=== PATIENT | male | born 1955 | race African-American/Black ===

== ENCOUNTER 2019-11-16 11:19 | Outpatient (CLI) | payer MEDICARE, SELFPAY ==
[2019-11-16 12:52] LABS: Hematocrit 45.5 % (42.0-52.0); Hemoglobin 14.7 g/dL (14.0-18.0); Mean Corpuscular HGB Conc 32.3 g/dl (32-36); Mean Corpuscular Volume 83.6 fl (80-100); Mean Platelet Volume 10.3 fl (7.4-10.4); Platelet Count Result 195 k/mm3 (150-375); Red Blood Count 5.44 M/mm3 (4.6-6.20); Red Cell Distribution Width 13.5 % (11.5-14.5); White Blood Count 4.4 K/mm3 (4.5-10.0)
[2019-11-16 13:01] LABS: Hemoglobin A1C 5.4 % (<5.7)
[2019-11-16 13:09] LABS: Alanine Aminotransferase 15 U/L (4-50); Albumin Level 4.1 g/dL (3.5-5.1); Alkaline Phosphatase 85 U/L (38-126); Aspartate Amino Transferase 19 U/L (17-59); Bilirubin,Total 0.3 mg/dL (0.2-1.3); Blood Urea Nitrogen 8 mg/dL (9-20); Calcium 9.2 mg/dL (8.4-10.2); Carbon Dioxide 29 mmol/L (22-30); Chloride 105 mmol/L (98-107); Cholesterol 172 mg/dL (0-200); Estimated Glomerular Filt Rate > 60; Glucose 105 mg/dL (75-110); HDL Direct 44 mg/dL; Potassium 3.8 mmol/L (3.4-5.0); Sodium 140 mmol/L (137-145); Triglycerides 76 mg/dL (<150)
[2019-11-16 13:22] LABS: LDL Cholesterol Direct 107 mg/dL
== END 2019-11-16 11:20 | disposition home or self-care (01) ==
PROVIDERS: PCP Emergency Medicine
DX: R73.09 Other abnormal glucose (principal); M54.9 Dorsalgia, unspecified; I10 Essential (primary) hypertension; E78.5 Hyperlipidemia, unspecified; F17.200 Nicotine dependence, unspecified, uncomplicated; R00.2 Palpitations; I70.219 Atherosclerosis of native arteries of extremities with intermittent claudication, unspecified extremity; R06.02 Shortness of breath; M79.606 Pain in leg, unspecified; I25.10 Atherosclerotic heart disease of native coronary artery without angina pectoris
CPT/HCPCS: 36415; 80053; 80061; 83036; 85027

== ENCOUNTER 2019-11-28 08:43 | Emergency (ER) | payer MEDICARE, MEDICAID, SELFPAY ==
--- NOTE | ~2019-11-28 | XR_ITS ---
EXAMINATION: XR chest 1V portable DATE: 11/28/2019 09:56 INDICATION: Cough and flu symptoms. TECHNIQUE: frontal view of the chest was obtained. COMPARISON: Chest radiograph dated 05/28/2016 FINDINGS: The lungs remain clear with no focal airspace opacities, pulmonary edema, pleural effusion or pneumot horax. The cardiomediastinal silhouette is normal. Partially visualized plate and screw fixation for lower cervical anterior spinal fusion. IMPRESSION: 1. No acute cardiopulmonary disease. Reviewed, dictated and finalized at location A.
[2019-11-28 08:53] VITALS: BP 207/103; PULSE 96; RESP 18; TEMP 36.9; O2SAT 100
--- NOTE | 2019-11-28 10:09 | ED.GENADULT ---
HPI - General Adult General Chief complaint: Upper Respiratory Infection Stated complaint: flu like sx Time Seen by Provider: 11/28/19 08:48 Source: patient Mode of arrival: ambulatory Limitations: no limitations History of Present Illness HPI narrative: Patient is a 64-year-old male who presents with 2 days duration of some mild stomach discomfort in the morning that improved with prune juice and a bowel movement patient notes he has no current complaints right now notes that he did just recently get over an upper respiratory infection. Related Data Allergies Allergy/AdvReac Type Severity Reaction Status Date / Time Penicillins Allergy Unknown Anaphylaxis Verified 11/28/19 08:57 Review of Systems Review of Systems: All systems reviewed & are unremarkable except as noted in HPI and below PMFSH Past Medical History Medical History (Updated 11/28/19 @ 10:23 by Harsha Deng PA-C) Hypertension Surgical History Surgical History H/O cardiac catheterization Social History Social History (Updated 11/28/19 @ 10:15 by Harsha Deng PA-C) Smoking status: Never smoker Exam Narrative: Exam Narrative: GENERAL: Well-appearing, well-nourished, and in no acute distress. HEAD: Normocephalic, atraumatic. EYES: PERRLA and EOMI. ENT: Nares clear, no rhinorrhea or epistaxis. Mucous membranes moist. CHEST: Clear to auscultation. No respiratory distress. No wheezes rales or rhonchi HEART: Regular rate and rhythm. No murmur heard. Normal peripheral pulses. ABDOMEN: Soft, nontender, nondistended EXTREMITIES: Normal range of motion. No edema. SKIN: Warm, dry, no rash. NEURO: No focal deficits. Alert and oriented x3. PSYCH: Normal mood and affect. Course Course Emergency Course: Patient in the room in no distress has follow-up with primary care tomorrow is felt appropriate for outpatient reevaluation Vital Signs Vital signs: Vital Signs Temperature 98.4 F 11/28/19 08:53 Pulse Rate 96 11/28/19 08:53 Respiratory Rate 18 11/28/19 08:53 Blood Pressure 207/103 H 11/28/19 08:53 Pulse Oximetry 100 11/28/19 08:53 Temperature 98.4 F 11/28/19 08:53 Pulse Rate 96 11/28/19 08:53 Respiratory Rate 18 11/28/19 08:53 Blood Pressure 207/103 H 11/28/19 08:53 Pulse Oximetry 100 11/28/19 08:53 Medical Decision Making MDM Narrative Medical decision making narrative: Patient in the room in no distress aware of case findings treatment plan and diagnosis agreeing to follow-up as directed Vital Signs Vital Signs: Vital Signs Temperature 98.4 F 11/28/19 08:53 Pulse Rate 96 11/28/19 08:53 Respiratory Rate 18 11/28/19 08:53 Blood Pressure 207/103 H 11/28/19 08:53 Pulse Oximetry 100 11/28/19 08:53 Temperature 98.4 F 11/28/19 08:53 Pulse Rate 96 11/28/19 08:53 Respiratory Rate 18 11/28/19 08:53 Blood Pressure 207/103 H 11/28/19 08:53 Pulse Oximetry 100 11/28/19 08:53 Lab Data Labs: Influenza A Screen Negative Reference Range: Negative Influenza B Screen Negative Reference Range: Negative ABG Data Interpretation: ITS Impressions Chest X-Ray 11/28/19 09:59 IMPRESSION: 1. No acute cardiopulmonary disease. Discharge Plan Discharge Clinical Impression: Upper respiratory infection Patient Disposition: Home, Self-Care Condition: Stable Instructions: Antibiotic Form, Acute Bronchitis (ED) Additional Instructions: Follow up with your primary care doctor in 5-7 days for re-evaluation. Go to ER for worsening pain, vision changes, nausea/vomiting, fever/chills, weakness, chest pain, shortness of breath, numbness/tingling, slurred speech, difficulty walking, change in mental status etc. or any other concerns. Take any prescribed medications as directed. Follow-up/Referrals: Alvaro Freed MD [Primary Care Provider] -
[2019-11-28 10:38] VITALS: BP 193/97; PULSE 97; RESP 18; O2SAT 100
== END 2019-11-28 10:42 | disposition home or self-care (01) ==
PROVIDERS: Emergency Provider Emergency Medicine; PCP Emergency Medicine
DX: J06.9 Acute upper respiratory infection, unspecified (principal); I10 Essential (primary) hypertension
CPT/HCPCS: 71045; 87804; 99283

== ENCOUNTER 2019-11-30 10:26 | Outpatient (CLI) | payer MEDICARE, MEDICAID, SELFPAY ==
--- NOTE | ~2019-11-30 | PE_ITS ---
EXAMINATION: PET skull to mid thigh DATE: 11/30/2019 12:38 INDICATION: Solitary pulmonary nodule. TECHNIQUE: Blood glucose level was 88 mg/dL. 11.299 mCi of 18-fluorodeoxyglucose (18-FDG) was adminis tered i.v. Low dose computed tomography (CT) images were acquired from the base of the brain to the p roximal thighs for attenuation correction and anatomic localization. Automated exposure control was e mployed. Dose-length product (DLP) was 864 mGy-cm. Positron emission tomography (PET) images were acq uired in the same distribution. COMPARISON: CT abdomen and pelvis 03/03/2017, chest CT 06/15/2016 FINDINGS: Head/neck: There is increased activity in the nose, nasopharynx, oral cavity, submandibular glands, s ublingual glands, and glottis without CT correlate, likely physiologic. There are no pathologically e nlarged lymph nodes. There are changes of anterior fusion procedure in cervical spine. Chest: There is mild emphysema. There is an 11 mm nodule in perihilar left upper lobe with maximum CEVALLOS V of 1.4, new from 06/15/16. No pleural effusion. The heart size is normal. There are coronary artery calcifications. No pericardial effusion. Abdomen/pelvis/proximal thighs: There is a 9 mm cyst in the liver. The gallbladder, spleen, pancreas, adrenal glands, and kidneys are normal. There are no dilated loops of bowel. The prostate is mildly enlarged. There is a right inguinal hernia containing fat. There is a stent in the left common and ex ternal iliac arteries. There is a stent in the right common and external iliac arteries. There is a s tent in left superficial femoral artery. There are no pathologically enlarged lymph nodes. There is n o free intraperitoneal fluid. There is a 3.0 cm fusiform infrarenal aortic aneurysm. There is severe lower lumbar spondylosis. IMPRESSION: 1. 11 mm nodule in perihilar left upper lobe without increased activity, which may be benign, but lo w-grade neoplasm cannot be excluded. Noncontrast chest CT is recommended in 3-6 months. Reviewed, dictated and finalized at location A. IMPRESSION: 1. 11 mm nodule in perihilar left upper lobe without increased activity, which may be benign, but low-grade neoplasm cannot be excluded. Noncontrast chest CT is recommended in 3-6 months.
[2019-11-30 10:49] LABS: Glucose Point of Care 88 (65-105)
== END 2019-11-30 10:27 | disposition home or self-care (01) ==
LOC: ANHIMG 10:29
PROVIDERS: PCP Emergency Medicine; Visit Provider Emergency Medicine
DX: R91.1 Solitary pulmonary nodule (principal)
CPT/HCPCS: 78815; A9552

== ENCOUNTER 2019-12-05 02:25 | Emergency (ER) | payer MEDICARE, SELFPAY ==
[2019-12-05 02:34] VITALS: BP 207/105; PULSE 118; RESP 16; TEMP 36.8; O2SAT 99
[2019-12-05 02:39] VITALS: BP 158/100; PULSE 108; RESP 18; O2SAT 97
--- NOTE | 2019-12-05 02:46 | ECG_ITS ---
Measurements Intervals [place] Rate: 95 P: 50 NE: 228 QRS: 9 QRSD: 92 T: 229 QT: 337 QTc: 424 Interpretive Statements SINUS RHYTHM WITH FIRST DEGREE AV BLOCK ST-T WAVE ABNORMALITY IN INF/LAT LEADS- CONSIDER ISCHEMIA ABNORMAL ECG Electronically Signed On 12-05-2019 6:59:05 CDT by Tay Paz D.O.
--- NOTE | 2019-12-05 02:53 | ED.ABDPAIN ---
HPI - Abdominal Pain General Chief Complaint: Abdominal Pain Stated Complaint: bloated in stomach Time Seen by Provider: 12/05/19 02:37 History of Present Illness HPI narrative: Patient is a 64-year-old male who presents the ER with intermittent abdominal bloating. Ongoing for the last 3 days. Was seen at [facility] and diagnosed with what sounds like acid reflux as he is prescribed sucralfate. Patient was told to follow-up with his GI doctor Dr. Yeung whom he sees for acid reflux as well as a colonoscopy in the past. Denies any fever/chills/shortness of breath. No real nausea or vomiting. Denies any diarrhea. Cannot really describe aggravating or alleviating factors. Related Data Allergies Allergy/AdvReac Type Severity Reaction Status Date / Time Penicillins Allergy Unknown Verified 12/05/19 02:52 Review of Systems Review of Systems: All systems reviewed & are unremarkable except as noted in HPI and below Constitutional: Constitutional: Denies chills, Denies fever(s) and Denies weakness ENT: Denies nasal congestion and Denies sore throat Cardiovascular: Cardiovascular: Denies chest pain and Denies radiating jaw, neck or arm pain Respiratory: Respiratory: Denies cough, Denies dyspnea and Denies wheezing Gastrointestinal: Gastrointestinal: Denies abdominal pain, Reports bloating, Denies constipation, Reports heartburn, Denies nausea and Denies vomiting PMFSH Past Medical History Medical History (Updated 12/05/19 @ 05:38 by Avtar Becerra MD) Contraindication to percutaneous coronary intervention (PCI) Coronary artery disease GERD (gastroesophageal reflux disease) Surgical History Surgical History (Updated 12/05/19 @ 05:36 by Avtar Becerra MD) H/O neck surgery History of esophagogastroduodenoscopy (EGD) Social History Social History (Updated 12/05/19 @ 05:37 by Avtar Becerra MD) Smoking status: Current every day smoker Exam Narrative: Exam Narrative: GENERAL: Well-appearing, well-nourished, and in no acute distress. HEAD: Normocephalic, atraumatic. ENT: Mucous membranes moist. NECK: Supple. CHEST: Clear to auscultation. No respiratory distress. HEART: Tachycardic and regular. Normal peripheral pulses. ABDOMEN: Soft, nontender, nondistended, normal active bowel sounds. EXTREMITIES: Normal range of motion. No edema. SKIN: Warm, dry, no rash. NEURO: Alert and oriented x3. Course Course Emergency Course: Patient informed of results. Symptoms improved with GI cocktail. Discharge home. Patient also reports he has been taking MiraLAX for some constipation this may be contributing to his bloating in the abdomen. Vital Signs Vital signs: Vital Signs Temperature 98.2 F 12/05/19 02:34 Pulse Rate 118 H 12/05/19 02:34 Respiratory Rate 16 12/05/19 02:34 Blood Pressure 207/105 H 12/05/19 02:34 Pulse Oximetry 99 12/05/19 02:34 Temperature 98.2 F 12/05/19 02:34 Pulse Rate 77 12/05/19 05:19 Respiratory Rate 18 12/05/19 05:19 Blood Pressure 155/86 H 12/05/19 05:19 Pulse Oximetry 95 12/05/19 05:19 MDM - Abdominal Pain Lab Data Result diagrams: 12/05/19 02:50 12/05/19 02:50 Labs: Lab Results 12/05/19 12/05/19 Range/Units 02:50 02:50 WBC 5.2 (4.5-10.0) K/mm3 RBC 5.40 (4.6-6.20) M/mm3 Hgb 14.7 (14.0-18.0) g/dL Hct 44.7 (42.0-52.0) % MCV 82.8 (80-100) fl MCH 27.2 (26-34) pg MCHC 32.9 (32-36) g/dl RDW 13.8 (11.5-14.5) % Plt Count 170 (150-375) k/mm3 MPV 9.8 (7.4-10.4) fl Immature Gran % (Auto) 0.2 (0-0.5) % Neut % (Auto) 57.0 (45.5-73.1) % Lymph % (Auto) 27.7 (18.3-44.2) % Motley % (Auto) 13.9 H (2.6-8.5) % Eos % (Auto) 0.8 (0-4.4) % Baso % (Auto) 0.4 (0.2-1.2) % Lymph # (Auto) 1.45 (0.9-3.2) K/mm3 Motley # (Auto) 0.7 H (0.1-0.6) K/mm3 Eos # (Auto) 0.0 (0-0.3) K/mm3 Baso # (Auto) 0.0 (0.0-0.1) K/mm3 Abs Immat Gran (auto) 0.01
[2019-12-05 02:56] LABS: Basophils Percent Auto 0.4 % (0.2-1.2); Eosinophils Percent Auto 0.8 % (0-4.4); Hematocrit 44.7 % (42.0-52.0); Hemoglobin 14.7 g/dL (14.0-18.0); Immature Granulocyte Absolute 0.01 K/mm3 (0.00-0.031); Immature Granulocyte Percent A 0.2 % (0-0.5); Lymphocytes Absolute Auto 1.45 K/mm3 (0.9-3.2); Lymphocytes Percent Auto 27.7 % (18.3-44.2); Mean Corpuscular HGB Conc 32.9 g/dl (32-36); Mean Corpuscular Hemoglobin 27.2 pg (26-34); Mean Corpuscular Volume 82.8 fl (80-100); Mean Platelet Volume 9.8 fl (7.4-10.4); Monocytes Absolute Auto 0.7 K/mm3 (0.1-0.6); Monocytes Percent Auto 13.9 % (2.6-8.5); Platelet Count Result 170 k/mm3 (150-375); Red Cell Distribution Width 13.8 % (11.5-14.5); White Blood Count 5.2 K/mm3 (4.5-10.0)
[2019-12-05] MEDS: MAG HYDROX/AL HYDROX/SIMETH 30 ML UDC PO (03:05)
[2019-12-05] MEDS: LIDOCAINE HCL 2% VISC SOLN 15 ML UDC PO (03:05)
--- NOTE | 2019-12-05 03:20 | PC.NURSE ---
pt states his stomach feels better after GI cocktail. md notified.
[2019-12-05 03:25] VITALS: BP 182/100; PULSE 82; RESP 16; O2SAT 98
--- NOTE | 2019-12-05 03:27 | PC.NURSE ---
pt calls this rn into room to inform me that [facility] prescribed him mirilax, hydralazine, and cyproheptadine on wednesday. jhe states he had temporary relief. notified.
[2019-12-05 03:29] LABS: Alanine Aminotransferase 17 U/L (4-50); Albumin Level 4.2 g/dL (3.5-5.1); Alkaline Phosphatase 94 U/L (38-126); Aspartate Amino Transferase 24 U/L (17-59); Bilirubin,Total 0.3 mg/dL (0.2-1.3); Blood Urea Nitrogen 8 mg/dL (9-20); Calcium 9.6 mg/dL (8.4-10.2); Carbon Dioxide 28 mmol/L (22-30); Chloride 104 mmol/L (98-107); Estimated Glomerular Filt Rate > 60; Glucose 105 mg/dL (75-110); Lipase 18 U/L (23-300); Potassium 3.7 mmol/L (3.4-5.0); Sodium 139 mmol/L (137-145)
[2019-12-05] MEDS: ACETAMINOPHEN 500 MG TABLET 1000 MG PO (04:24)
[2019-12-05 04:33] VITALS: BP 178/103; PULSE 76; RESP 18; O2SAT 97
[2019-12-05 05:19] VITALS: BP 155/86; PULSE 77; RESP 18; O2SAT 95
[2019-12-05 05:50] VITALS: BP 158/91; PULSE 70; RESP 16; TEMP 36.7; O2SAT 98
== END 2019-12-05 05:52 | disposition home or self-care (01) ==
PROVIDERS: Emergency Provider Emergency Medicine; PCP Emergency Medicine
DX: R14.0 Abdominal distension (gaseous) (principal); I44.0 Atrioventricular block, first degree; R94.31 Abnormal electrocardiogram [ECG] [EKG]; I25.10 Atherosclerotic heart disease of native coronary artery without angina pectoris; K21.9 Gastro-esophageal reflux disease without esophagitis; F17.200 Nicotine dependence, unspecified, uncomplicated
CPT/HCPCS: 36415; 80053; 83690; 84484; 85025; 93005; 99284; A9270

== ENCOUNTER 2020-01-26 10:21 | Outpatient (CLI) | payer MEDICARE, MEDICAID, SELFPAY ==
--- NOTE | 2020-01-29 12:32 | WPDPFTINT ---
PFT Interpretation PFT Interpretation: DOS: 01/26/2020 REQUESTING: Dr. Elizalde REASON FOR TESTING: emphysema PULMONARY FUNCTION TESTS Results are reproducible. the patient had difficulty performing the inspiratory limb. Patient had good effort. Spirometry: FEV1 98%. FVC 90%. FEV 1% is normal. No significant response to bronchodilator. Normal spirometry. Lung volumes: TLC 97%. RV 95%. No air trapping. Normal airway resistance 112%. Diffusion: DLCO mildly reduced 70%. Flow volume loop: Normal. IMPRESSION: Normal spirometry and lung volumes with mild decrease in diffusion. Isolated decrease in diffusion can be seen with anemia, early ILD, and pulmonary vascular congestion. Clinical correlation recommended. Gaby Elizalde MD
== END 2020-01-26 10:22 | disposition home or self-care (01) ==
LOC: ANHPFT 10:23
PROVIDERS: PCP Emergency Medicine; Visit Provider Internal Medicine Critical Care Medicine
DX: J43.9 Emphysema, unspecified (principal)
CPT/HCPCS: 94060; 94726; 94729

== ENCOUNTER 2020-03-08 10:56 | Outpatient (CLI) | payer MEDICARE, MEDICAID, SELFPAY ==
--- NOTE | ~2020-03-08 | CT_ITS ---
EXAMINATION: CT chest wo con DATE: 03/08/2020 11:09 INDICATION: Follow-up lung nodule TECHNIQUE: Computed tomography (CT) of the chest was performed without intravenous contrast. The dose -length product was 116.79 mGy-cm. Automated exposure control and iterative reconstruction technique were employed. COMPARISON: Pet/CT dated 11/30/2019 FINDINGS: There is atherosclerosis of the aorta and coronary arteries. Heart size normal. No signific ant pleural or pericardial effusion. 11 mm precarinal lymph node. Mildly prominent prevascular space lymph nodes, unchanged, likely reactive. The upper abdomen is unremarkable. Mild emphysema. There is a 4 mm groundglass nodule left upper lobe, most likely infectious/inflammatory. The previously descri bed 11 mm left perihilar mass is not definitely visualized on the current study. Calcified granulomas right upper lobe. No focal airspace disease. No endobronchial lesions. No pneumothorax. Mild thoraci c spondylosis. IMPRESSION: 1. 4 mm groundglass left upper lobe nodule, most likely infectious/inflammatory. Low dose CT chest in 12 months recommended. 2: Mild mediastinal lymphadenopathy, likely reactive. Reviewed, dictated and finalized at location A. IMPRESSION: 1. 4 mm groundglass left upper lobe nodule, most likely infectious/inflammatory . Low dose CT chest in 12 months recommended. 2: Mild mediastinal lymphadenopathy, likely reactive.
== END 2020-03-08 10:57 | disposition home or self-care (01) ==
LOC: ANHIMG 10:57
PROVIDERS: PCP Emergency Medicine; Visit Provider Internal Medicine Critical Care Medicine
DX: R91.1 Solitary pulmonary nodule (principal)
CPT/HCPCS: 71250

== ENCOUNTER 2020-08-30 00:04 | Emergency (ER) | payer MEDICARE, MEDICAID, SELFPAY ==
--- NOTE | ~2020-08-30 | XR_ITS ---
EXAMINATION: XR chest 2V DATE: 08/30/2020 00:49 INDICATION: Chest pain and bloating. TECHNIQUE: PA and lateral views of the chest were obtained. COMPARISON: Chest CT dated 03/08/2020 FINDINGS: Small bilateral pleural effusions with blunting at the posterior sulci and costophrenic angles. A few peripheral Aspen B-lines at the lateral right lower lung zone consistent with minimal pulmonary guero ma. No other airspace opacities or pneumothorax. The cardiomediastinal silhouette is normal. Plate-sc rew fixation for anterior spinal fusion at C6-C7. IMPRESSION: 1. Minimal pulmonary edema and small bilateral pleural effusions. Reviewed, dictated and finalized at location A. RTAINMENT MANAGER
--- NOTE | 2020-08-30 00:09 | ECG_ITS ---
Measurements Intervals [place] Rate: 76 P: 16 [place]: 211 QRS: -2 QRSD: 102 T: 263 QT: 379 QTc: 428 Interpretive Statements SINUS RHYTHM WITH FIRST DEGREE AV BLOCK VENTRICULAR PREMATURE COMPLEX NONSPECIFIC ST & T-WAVE ABNORMALITY- DIFFUSE LEADS BASELINE ARTIFACT- I, II, AVR, AVL, AVF ABNORMAL ECG Electronically Signed On 08-30-2020 8:08:57 NAIL MILL WORKER by Tay Paz D.O.
[2020-08-30 00:10] VITALS: BP 180/95; PULSE 75; RESP 15; TEMP 36.6; O2SAT 98
[2020-08-30 00:30] LABS: Basophils Percent Auto 0.4 % (0.2-1.2); Eosinophils Absolute Auto 0.1 K/mm3 (0-0.3); Eosinophils Percent Auto 0.8 % (0-4.4); Hematocrit 40.7 % (42.0-52.0); Hemoglobin 13.2 g/dL (14.0-18.0); Immature Granulocyte Absolute 0.01 K/mm3 (0.00-0.031); Immature Granulocyte Percent A 0.1 % (0-0.5); Lymphocytes Absolute Auto 2.07 K/mm3 (0.9-3.2); Lymphocytes Percent Auto 28.2 % (18.3-44.2); Mean Corpuscular HGB Conc 32.4 g/dl (32-36); Mean Corpuscular Hemoglobin 25.9 pg (26-34); Mean Corpuscular Volume 79.8 fl (80-100); Mean Platelet Volume 9.8 fl (7.4-10.4); Monocytes Absolute Auto 0.9 K/mm3 (0.1-0.6); Neutrophils Absolute Auto 4.3 K/mm3 (1.3-6.7); Neutrophils Percent Auto 58.5 % (45.5-73.1); Platelet Count Result 254 k/mm3 (150-375); Red Cell Distribution Width 15.2 % (11.5-14.5); White Blood Count 7.4 K/mm3 (4.5-10.0)
[2020-08-30 00:41] LABS: Anion Gap 12 mmol/L (8-16); Blood Urea Nitrogen 12 mg/dL (9-20); Calcium 9.3 mg/dL (8.4-10.2); Carbon Dioxide 26 mmol/L (22-30); Chloride 101 mmol/L (98-107); Estimated CRCL calculation 59 ml/min; Estimated Glomerular Filt Rate > 60; Glucose 107 mg/dL (75-110); Potassium 3.4 mmol/L (3.4-5.0); Sodium 139 mmol/L (137-145)
[2020-08-30 01:06] LABS: Troponin I 0.085 ng/mL (0.000-0.034)
[2020-08-30 01:26] LABS: INR 0.9; Prothrombin Time 13.2 Seconds (11.1-14.7)
[2020-08-30 01:27] LABS: Partial Thromboplastin Time 31.5 SECONDS (22.3-36.8)
[2020-08-30] MEDS: ONDANSETRON INJ 4 MG/2 ML VIAL IV PUSH (01:32)
[2020-08-30] MEDS: ASPIRIN 81 MG CHEWABLE TABLET 324 MG PO (01:32)
--- NOTE | 2020-08-30 03:06 | ED.GENADULT ---
HPI - General Adult General Chief complaint: Chest Pain Stated complaint: chest pain Time Seen by Provider: 08/30/20 00:40 History of Present Illness HPI narrative: Patient is a 65-year-old gentleman who presents emerged from with chief complaint of epigastric discomfort. Patient states that he has history of stomach problems but also recently had a stent placed in the last several days over at [facility] in [place]. The patient states that tonight he took his stomach medication and then was trying to sleep and took some hydroxyzine patient noticed that it been afterwards he had a dry mouth and had a strange feeling in his abdomen. Patient denied chest pain or shortness of breath or radiation to his arm or neck. Related Data Home Medications Medication Instructions Recorded Confirmed acyclovir 400 mg tablet 400 mg PO BID 01/09/20 amlodipine 10 mg tablet 10 mg PO DAILY 01/09/20 aspirin 81 mg tablet,delayed 162 mg PO DAILY tablet 01/09/20 release ezetimibe 10 mg tablet 10 mg PO DAILY 01/09/20 hydralazine 50 mg tablet 50 mg PO BID tablet 01/09/20 hydroxyzine pamoate 25 mg capsule 25 mg PO BID PRN 01/09/20 ibuprofen 200 mg capsule 200 mg PO Q6H PRN 01/09/20 omeprazole 20 mg capsule,delayed 20 mg PO DAILY 01/09/20 release oxycodone 15 mg tablet 15 mg PO Q4H PRN 01/09/20 tizanidine 4 mg capsule 4 mg PO TID PRN 01/09/20 Allergies Allergy/AdvReac Type Severity Reaction Status Date / Time Penicillins Allergy Unknown Anaphylaxis Verified 11/28/19 08:57 Review of Systems Review of Systems: Narrative: A 10 system review of systems was completed on the patient and is negative except for what is stated in the HPI. Nursing and ancillary documentation was reviewed. [facility] Past Medical History Medical History Hypertension Tobacco abuse Surgical History Surgical History H/O cardiac catheterization Social History Social History Smoking status: Never smoker Exam Narrative: Exam Narrative: GENERAL: Well-appearing, well-nourished, and in no acute distress. HEAD: Normocephalic, atraumatic. EYES: PERRLA and EOMI. ENT: Nares clear, no rhinorrhea or epistaxis. Mucous membranes moist. NECK: Supple. CHEST: Clear to auscultation. No respiratory distress. HEART: Regular rate and rhythm. No murmur heard. Normal peripheral pulses. ABDOMEN: Soft, nontender, nondistended, normal active bowel sounds. EXTREMITIES: Normal range of motion. No edema. SKIN: Warm, dry, no rash. NEURO: No focal deficits. Alert and oriented x3. PSYCH: Normal mood and affect. Course Course Emergency Course: EKG shows no evidence of ST elevation or ST depression Patient had a mildly elevated troponin but the patient has just had a stent placed in the last several days. A 3-hour troponin will be obtained to determine a change in the troponin number Vital Signs Vital signs: Vital Signs Temperature 36.6 C 08/30/20 00:10 Pulse Rate 75 08/30/20 00:10 Respiratory Rate 15 08/30/20 00:10 Blood Pressure 180/95 H 08/30/20 00:10 Pulse Oximetry 98 08/30/20 00:10 Temperature 36.6 C 08/30/20 00:10 Pulse Rate 66 08/30/20 03:08 Respiratory Rate 16 08/30/20 03:08 Blood Pressure 157/89 H 08/30/20 03:08 Pulse Oximetry 99 08/30/20 03:08 Medical Decision Making Vital Signs Vital Signs: Vital Signs Temperature 36.6 C 08/30/20 00:10 Pulse Rate 75 08/30/20 00:10 Respiratory Rate 15 08/30/20 00:10 Blood Pressure 180/95 H 08/30/20 00:10 Pulse Oximetry 98 08/30/20 00:10 Temperature 36.6 C 08/30/20 00:10 Pulse Rate 66 08/30/20 03:08 Respiratory Rate 16 08/30/20 03:08 Blood Pressure 157/89 H 08/30/20 03:08 Pulse Oximetry 99 08/30/20 03:08 Lab Data Result diagrams: 08/30/20
[2020-08-30 03:08] VITALS: BP 157/89; PULSE 66; RESP 16; O2SAT 99
[2020-08-30 03:57] LABS: Troponin I 0.077 ng/mL (0.000-0.034)
[2020-08-30 04:10] VITALS: BP 176/94; PULSE 78; RESP 16; O2SAT 97
== END 2020-08-30 04:11 | disposition home or self-care (01) ==
PROVIDERS: Emergency Provider Emergency Medicine; PCP Emergency Medicine
DX: R10.13 Epigastric pain (principal); Z79.82 Long term (current) use of aspirin; I10 Essential (primary) hypertension; I44.0 Atrioventricular block, first degree; I49.3 Ventricular premature depolarization; R94.31 Abnormal electrocardiogram [ECG] [EKG]
CPT/HCPCS: 36415; 71046; 80048; 84484; 85025; 85610; 85730; 93005; 96374; 99284; A9270; J2405

== ENCOUNTER 2020-10-21 17:07 | Emergency (ER) | payer MEDICARE, MEDICAID, SELFPAY ==
--- NOTE | ~2020-10-21 | CT_ITS ---
EXAMINATION: CT brain wo con DATE: 10/21/2020 21:19 INDICATION: Headache and dizziness. TECHNIQUE: Computed tomography (CT) of the head was performed without intravenous contrast. The mA wa s adjusted according to patient size. Iterative reconstruction technique was employed. The dose-lengt h product was 605.33 mGy-cm. COMPARISON: None. FINDINGS: There are scattered areas of low attenuation in the cerebral white matter. There is no intr acranial hemorrhage, acute infarction, or abnormal intracranial mass lesion. The ventricles are frederick l in size. There is an old blowout fracture of medial wall of left orbit. There is mild mucosal thick ening in the paranasal sinuses. The mastoid air cells are normal. IMPRESSION: 1. Moderate nonspecific cerebral white matter disease, which likely represents chronic small vessel i schemic disease. Reviewed, dictated and finalized at location A. ER TACK IMPRESSION: 1. Moderate nonspecific cerebral white matter disease, which likely represents chronic small vessel ischemic disease.
[2020-10-21 17:25] VITALS: BP 140/79; PULSE 100; RESP 18; TEMP 36.5; O2SAT 100
--- NOTE | 2020-10-21 17:28 | ECG_ITS ---
Measurements Intervals [place] Rate: 102 P: 54 [place]: 200 QRS: 10 QRSD: 95 T: -56 QT: 335 QTc: 437 Interpretive Statements SINUS TACHYCARDIA WITH FIRST DEGREE AV BLOCK ST-T WAVE ABNORMALITY IN INFERIOR LEADS- CONSIDER ISCHEMIA ABNORMAL ECG Electronically Signed On 10-21-2020 19:22:37 FIELD TECHNICIAN by Tay Paz D.O.
[2020-10-21 19:38] VITALS: BP 155/89; PULSE 73; RESP 20
[2020-10-21 21:03] LABS: Basophils Percent Auto 0.6 % (0.2-1.2); Eosinophils Absolute Auto 0.1 K/mm3 (0-0.3); Hematocrit 45.7 % (42.0-52.0); Hemoglobin 14.7 g/dL (14.0-18.0); Immature Granulocyte Absolute 0.01 K/mm3 (0.00-0.031); Immature Granulocyte Percent A 0.2 % (0-0.5); Lymphocytes Absolute Auto 1.64 K/mm3 (0.9-3.2); Lymphocytes Percent Auto 33.4 % (18.3-44.2); Mean Corpuscular HGB Conc 32.2 g/dl (32-36); Mean Corpuscular Hemoglobin 26.2 pg (26-34); Mean Corpuscular Volume 81.3 fl (80-100); Mean Platelet Volume 9.7 fl (7.4-10.4); Monocytes Absolute Auto 0.6 K/mm3 (0.1-0.6); Monocytes Percent Auto 11.2 % (2.6-8.5); Neutrophils Absolute Auto 2.6 K/mm3 (1.3-6.7); Neutrophils Percent Auto 53.6 % (45.5-73.1); Platelet Count Result 217 k/mm3 (150-375); Red Blood Count 5.62 M/mm3 (4.6-6.20); Red Cell Distribution Width 15.7 % (11.5-14.5); White Blood Count 4.9 K/mm3 (4.5-10.0)
[2020-10-21 21:05] LABS: Add Urine Microscopic? NO; Appearance Urine Clear (Clear); Bilirubin Urine Negative (Negative); Blood Urine Negative (Negative); Color Urine Colorless (Yellow); Glucose Urine UA Negative (Negative); Ketones Urine Negative (Negative); Leukocyte Esterase Ur Negative LEU/UL (Negative); Nitrate Urine Negative (Negative); Protein Urine Negative (Negative); Specific Grav Ur 1.005 (1.001-1.035); Urobilinogen Urine Negative mg/dL (<2.0)
[2020-10-21] MEDS: MECLIZINE HCL 25 MG TABLET PO (21:12)
[2020-10-21 21:14] LABS: Alanine Aminotransferase 16 U/L (4-50); Albumin Level 4.2 g/dL (3.5-5.1); Alkaline Phosphatase 71 U/L (38-126); Anion Gap 6 mmol/L (8-16); Aspartate Amino Transferase 24 U/L (17-59); Bilirubin,Total 0.4 mg/dL (0.2-1.3); Blood Urea Nitrogen 8 mg/dL (9-20); Calcium 8.9 mg/dL (8.4-10.2); Carbon Dioxide 29 mmol/L (22-30); Chloride 106 mmol/L (98-107); Estimated CRCL calculation 61 ml/min; Estimated Glomerular Filt Rate > 60; Glucose 91 mg/dL (75-110); Potassium 3.9 mmol/L (3.4-5.0); Sodium 141 mmol/L (137-145)
[2020-10-21 21:26] VITALS: BP 161/103; PULSE 66
[2020-10-21 21:28] VITALS: BP 161/92; PULSE 77
[2020-10-21 21:30] VITALS: BP 172/89; PULSE 82
--- NOTE | 2020-10-21 21:45 | ED.RECABL ---
HPI - Recheck/Abnormal Lab/Rx General Chief Complaint: Recheck/Abnormal Lab/Rx Stated Complaint: high blood pressure Time Seen by Provider: 10/21/20 19:34 Source: patient Mode of arrival: ambulatory Limitations: no limitations History of Present Illness HPI narrative: This is a 65 year old male with history of hypertension who presents for evaluation of elevated blood pressure and headache. He states he developed facial pressure and mild headache. He states he has had symptoms for a couple of days but it got worse today. He states he thought the symptoms were due to elevated blood pressure but he was unable to check at home. He also reports dizziness today that he describes as spinning. He also reports bilateral ears feels as though they are stopped up. Denies associated nausea, vomiting, fever, chills or focal weakness, numbness or tingling. He took benadryl prior to arrival to help with his symptoms. Related Data Home Medications Medication Instructions Recorded Confirmed acyclovir 400 mg tablet 400 mg PO BID 01/09/20 amlodipine 10 mg tablet 10 mg PO DAILY 01/09/20 aspirin 81 mg tablet,delayed 162 mg PO DAILY tablet 01/09/20 release ezetimibe 10 mg tablet 10 mg PO DAILY 01/09/20 hydralazine 50 mg tablet 50 mg PO BID tablet 01/09/20 hydroxyzine pamoate 25 mg capsule 25 mg PO BID PRN 01/09/20 ibuprofen 200 mg capsule 200 mg PO Q6H PRN 01/09/20 omeprazole 20 mg capsule,delayed 20 mg PO DAILY 01/09/20 release oxycodone 15 mg tablet 15 mg PO Q4H PRN 01/09/20 tizanidine 4 mg capsule 4 mg PO TID PRN 01/09/20 Allergies Allergy/AdvReac Type Severity Reaction Status Date / Time Penicillins Allergy Unknown Anaphylaxis Verified 10/21/20 17:29 Review of Systems Review of Systems: All systems reviewed & are unremarkable except as noted in HPI and below Constitutional: Constitutional: Denies chills and Denies fever(s) Eyes: Eyes: Denies change in vision ENT: Reports vertigo, Reports dizziness and Reports nasal congestion Cardiovascular: Cardiovascular: Denies chest pain Respiratory: Respiratory: Denies cough and Denies dyspnea Gastrointestinal: Gastrointestinal: Denies abdominal pain and Denies vomiting Neurologic: Reports dizziness, Denies syncope, Reports headache(s) and Denies numbness PMFSH Past Medical History Medical History Hypertension Tobacco abuse Surgical History Surgical History H/O cardiac catheterization Social History Social History Smoking status: Never smoker Exam Const: General: no acute distress and alert Orientation/consciousness: patient oriented x3 HENMT: Head: normal to inspection Ears: external ears normal and TM's normal bilaterally Face and sinus: normal facial exam Eyes: Pupils: Equal, round and reactive pupils present EOM: EOMs intact bilaterally Chest: Chest palpation & inspection: normal inspection of the chest Resp: Effort & Inspection: normal respiratory effort and no retractions Auscultation: clear to auscultation bilaterally Cardio: Rate: regular rate Rhythm: regular rhythm Heart sounds: no murmurs GI: GI Palp: Yes Soft to palpation, No Tenderness to palpation present (GI) and No Guarding due to palpation present (GI) Auscultation: normal bowel sounds Skin: General skin exam: normal color Rashes: no rashes Neuro: General: patient oriented x3, moves all extremities, no meningeal signs, no focal motor deficits and CN's II-XI intact bilaterally Cranial nerves: Yes Nystagmus not present Speech: normal speech Gait exam (Neuro): Normal gait present Extrem: General: normal to inspection and no pedal edema Course Consultations Consultation #1: PAtient states he feels better. .His BP is 150s /90. This appears to be baseline. He has steady gait
[2020-10-21] MEDS: hydrALAZINE HCL 50 MG TABLET 100 MG PO (22:20)
[2020-10-21 23:03] VITALS: BP 170/87; PULSE 67; RESP 18; O2SAT 100
[2020-10-21] MEDS: KETOROLAC 15 MG/ML VIAL (*BKC) IV PUSH (23:04)
[2020-10-21] MEDS: hydrALAZINE HCL 20 MG/ML VIAL 10 MG IV PUSH (23:04)
[2020-10-22 00:13] VITALS: BP 144/69; PULSE 73; RESP 18; O2SAT 100
[2020-10-22 14:42] LABS: SARS-CoV-2 RNA PCR Negative
== END 2020-10-22 00:37 | disposition home or self-care (01) ==
PROVIDERS: Emergency Provider General Practice; PCP Emergency Medicine
DX: J32.9 Chronic sinusitis, unspecified (principal); I10 Essential (primary) hypertension; Z20.822 Contact with and (suspected) exposure to COVID-19; Z79.82 Long term (current) use of aspirin; R90.82 White matter disease, unspecified; I44.0 Atrioventricular block, first degree; R00.0 Tachycardia, unspecified; R94.31 Abnormal electrocardiogram [ECG] [EKG]
CPT/HCPCS: 36415; 70450; 80053; 81003; 85025; 93005; 96365; 96366; 96375; 99284; A9270; C9803; J0131; J0360; J1885; U0003; U0005

== ENCOUNTER 2020-10-28 05:06 | Emergency (ER) | payer MEDICARE, SELFPAY ==
[2020-10-28 05:08] VITALS: BP 184/95; PULSE 97; RESP 18; TEMP 36.2; O2SAT 100
--- NOTE | 2020-10-28 06:06 | ED.GENADULT ---
HPI - General Adult General Chief complaint: Skin/Abscess/Foreign Body Stated complaint: Knot on chest Time Seen by Provider: 10/28/20 05:18 Source: RN notes reviewed History of Present Illness HPI narrative: Patient presents emergency department from home for lump over the left breast. Patient states he noticed the area 1 day ago with a firm lump felt in his left breast patient denies any fever chills denies overlying redness or swelling denies any drainage he states he is concerned there could be a blood clot and came to the emergency department for further evaluation he denies any direct trauma or injury Related Data Home Medications Medication Instructions Recorded Confirmed acyclovir 10/28/20 amlodipine 10/28/20 clopidogrel 10/28/20 dicyclomine mg 10/28/20 omeprazole 10/28/20 oxycodone 10/28/20 Allergies Allergy/AdvReac Type Severity Reaction Status Date / Time Penicillins Allergy Unknown Verified 10/28/20 05:11 Review of Systems Review of Systems: Narrative: Gen.: Denies fevers or chills ENT: Denies congestion Respiratory: Denies shortness of breath or cough CV: Denies chest pain or palpitations GI: Denies abdominal pain nausea, emesis or diarrhea Musculoskeletal: Denies back pain or muscle pain Neuro: Denies numbness, tingling, weakness or focal weakness Skin: Denies rash Except as documented, all other systems reviewed and negative [facility] Past Medical History Medical History Contraindication to percutaneous coronary intervention (PCI) Coronary artery disease GERD (gastroesophageal reflux disease) Surgical History Surgical History (Updated 12/05/19 @ 05:36 by Avtar Becerra MD) H/O neck surgery History of esophagogastroduodenoscopy (EGD) Social History Social History Smoking status: Current every day smoker Exam Narrative: Exam Narrative: APPEARANCE: No acute distress, nontoxic, resting in bed EYES: EOMI HEENT: Normocephalic, atraumatic, OMM RESPIRATORY: No respiratory distress Clear to auscultation bilaterally with no rhonchi wheezing or rales. CARDIOVASCULAR: Regular rate and rhythm without murmurs rubs or gallops. Chest: The left breast does have a firm mobile mass in the 1 o'clock position there is no overlying erythema or swelling there is no fluctuance ABDOMINAL: Soft, nontender, MUSCULOSKELETAl: Moves all extremities. NEURO: Awake and alert. Following commands, speech normal, no focal deficits SKIN:: Warm, dry. No rashes lesions or abrasions PSYCHIATRIC: Normal affect/mood, Course Course Emergency Course: Discussed with Dr. Freed with no current ultrasound available will discharge as the patient has an appointment today with outpatient imaging to be obtained Discussed with patient results of workup and diagnosis. Discussed need for follow-up with primary care, proper use of medication, and reasons to return to the emergency department. Patient understands and agrees to current treatment plan Vital Signs Vital signs: Vital Signs Temperature 97.2 F L 10/28/20 05:08 Pulse Rate 97 10/28/20 05:08 Respiratory Rate 18 10/28/20 05:08 Blood Pressure 184/95 H 10/28/20 05:08 Pulse Oximetry 100 10/28/20 05:08 Temperature 97.2 F L 10/28/20 05:08 Pulse Rate 97 10/28/20 05:08 Respiratory Rate 18 10/28/20 05:08 Blood Pressure 184/95 H 10/28/20 05:08 Pulse Oximetry 100 10/28/20 05:08 Medical Decision Making MDM Narrative Medical decision making narrative: Patient with firm mobile mass in left upper chest feel this is likely a lipoma however is in the breast tissue concern for possible breast carcinoma patient will likely require ultrasound and further imaging which is unavailable secondary to nighttime hours discussed Dr. Freed will discharge to follow-up as an outpatient Vital Signs Vital Signs: Vital Signs Temperature 97.2 F L
[2020-10-28 06:50] VITALS: RESP 16
== END 2020-10-28 06:51 | disposition home or self-care (01) ==
PROVIDERS: Emergency Provider Emergency Medicine; PCP Emergency Medicine
DX: N63.20 Unspecified lump in the left breast, unspecified quadrant (principal); I25.10 Atherosclerotic heart disease of native coronary artery without angina pectoris; K21.9 Gastro-esophageal reflux disease without esophagitis; F17.200 Nicotine dependence, unspecified, uncomplicated
CPT/HCPCS: 99281

== ENCOUNTER 2020-11-03 09:40 | Outpatient (CLI) | payer MEDICARE, MEDICAID, SELFPAY ==
--- NOTE | ~2020-11-03 | US_ITS ---
EXAMINATION: US soft tissue chest INDICATION: Palpable lump of the left anterior chest wall TECHNIQUE: Targeted high-resolution ultrasound is performed in the area of clinical concern. COMPARISON: None available FINDINGS: There is a 2.5 x 0.9 cm oval, circumscribed, isoechoic mass in the subcutaneous tissues of the left anterior chest wall corresponding to the palpable abnormality. There is no abnormal vascular ity. IMPRESSION: 1. Lipoma of the left chest wall corresponding to the palpable abnormality. Reviewed, dictated and finalized at location A. STYLE DIRECTOR
== END 2020-11-03 09:41 | disposition home or self-care (01) ==
PROVIDERS: PCP Emergency Medicine; Visit Provider Emergency Medicine
DX: N63.0 Unspecified lump in unspecified breast (principal)
CPT/HCPCS: 76604

== ENCOUNTER 2021-02-02 03:58 | Emergency (ER) | payer MEDICARE, MEDICAID, SELFPAY ==
--- NOTE | ~2021-02-02 | CT_ITS ---
EXAMINATION: CT brain wo con DATE: 02/02/2021 04:59 INDICATION: Dizziness. Hypertension. TECHNIQUE: Computed tomography (CT) of the head was performed without intravenous contrast. The mA wa s adjusted according to patient size. Iterative reconstruction technique was employed. Exam dose: 60 5.33 mGy-cm total exam DLP. COMPARISON: 10/21/2020 CT brain FINDINGS: There is cerebral atherosclerosis including prominent bilateral carotid siphon internal car otid artery calcifications. There is nonspecific diminished attenuation cerebral white matter, likely due to chronic small vessel ischemic changes. No intracranial mass lesion or hemorrhage or cerebrovascular accident is evident. No midline shift or mass effect. No subdural or epidural hematoma. There is cerebral and cerebellar volume loss. Small blowout fracture medial wall left orbit. No fracture or bone destruction of the cranial vault. The mastoid air cells and included paranasal sinuses are unremarkable. No significant change is noted compared 10/21/2020. IMPRESSION: Cerebral atherosclerosis and chronic small vessel ischemic changes of cerebral white mat ter No acute intracranial finding or significant change since 10/21/2020 Reviewed, dictated and finalized at [facility]. Reviewed, dictated and finalized at location [facility]. IMPRESSION: Cerebral atherosclerosis and chronic small vessel ischemic changes of cerebral white matter No acute intracranial finding or significant change since 10/21/2020
[2021-02-02 04:03] VITALS: BP 161/85; PULSE 76; RESP 14; TEMP 36.6; O2SAT 98
--- NOTE | 2021-02-02 04:22 | ECG_ITS ---
Measurements Intervals [place] Rate: 71 P: 24 [place]: 253 QRS: -6 QRSD: 102 T: 241 QT: 388 QTc: 422 Interpretive Statements SINUS RHYTHM WITH FIRST DEGREE AV BLOCK INFERIOR INFARCT, AGE INDETERMINATE BORDERLINE ST-T WAVE ABNORMALITY- ANTEROLAT/HIGH LAT LEADS BASELINE ARTIFACT- II, III, V6 ABNORMAL ECG Electronically Signed On 02-02-2021 7:47:36 CDT by Tay Paz D.O.
--- NOTE | 2021-02-02 04:24 | ED.RECABL ---
HPI - Recheck/Abnormal Lab/Rx General Chief Complaint: Recheck/Abnormal Lab/Rx Stated Complaint: BP check and an EKG Time Seen by Provider: 02/02/21 04:03 Source: RN notes reviewed History of Present Illness HPI narrative: Patient presents to emergency department from home for dizziness. Patient states that he awoke at approximately 2 AM this morning and had some dizziness. Patient states he had been concerned as his blood pressures have been fluctuating and is being followed by his PCP for early hypertension patient states his dizziness is improved at this time he denies any fevers or chills vision changes, chest pain, shortness of breath abdominal pain or any other symptoms. Patient states when he woke up he had eat and drink something that improved his symptoms Related Data Home Medications Medication Instructions Recorded Confirmed acyclovir 10/28/20 amlodipine 10/28/20 clopidogrel 10/28/20 dicyclomine mg 10/28/20 omeprazole 10/28/20 oxycodone 10/28/20 prasugrel mg 02/02/21 Allergies Allergy/AdvReac Type Severity Reaction Status Date / Time Penicillins Allergy Unknown Verified 02/02/21 04:07 Review of Systems Review of Systems: Narrative: Gen.: Denies fevers or chills Eyes: Denies eye pain or visual change ENT: Denies congestion Respiratory: Denies shortness of breath or cough CV: Denies chest pain or palpitations GI: Denies abdominal pain nausea, emesis or diarrhea Musculoskeletal: Denies back pain or muscle pain Neuro: See HPI Skin: Denies rash Except as documented, all other systems reviewed and negative [facility] Past Medical History Medical History Contraindication to percutaneous coronary intervention (PCI) Coronary artery disease GERD (gastroesophageal reflux disease) Surgical History Surgical History (Updated 12/05/19 @ 05:36 by Avtar Becerra MD) H/O neck surgery History of esophagogastroduodenoscopy (EGD) Social History Social History Smoking status: Current every day smoker Exam Narrative: Exam Narrative: APPEARANCE: No acute distress, nontoxic, resting in bed EYES: EOMI, PERRL HEENT: Normocephalic, atraumatic, OMM RESPIRATORY: No respiratory distress Clear to auscultation bilaterally with no rhonchi wheezing or rales. CARDIOVASCULAR: Regular rate and rhythm without murmurs rubs or gallops. ABDOMINAL: Soft, nontender, nondistended, no rebound or guarding MUSCULOSKELETAl: Moves all extremities. No clubbing, cyanosis or edema. NEURO: Awake and alert x 4. Following commands, speech normal, no focal deficits SKIN:: Warm, dry. No rashes lesions or abrasions PSYCHIATRIC: Normal affect/mood, Course Course Emergency Course: Patient states he is feeling better this time Discussed with patient results of workup and diagnosis. Discussed need for follow-up with primary care, proper use of medication, and reasons to return to the emergency department. Patient understands and agrees to current treatment plan Vital Signs Vital signs: Vital Signs Temperature 97.9 F 02/02/21 04:03 Pulse Rate 76 02/02/21 04:03 Respiratory Rate 14 02/02/21 04:03 Blood Pressure 161/85 H 02/02/21 04:03 Pulse Oximetry 98 02/02/21 04:03 Temperature 97.9 F 02/02/21 04:03 Pulse Rate 68 02/02/21 05:30 Respiratory Rate 20 02/02/21 05:30 Blood Pressure 146/85 H 02/02/21 05:30 Pulse Oximetry 100 02/02/21 05:30 MDM - Recheck/Abnormal Lab/Rx Lab Data Result diagrams: 02/02/21 04:37 02/02/21 04:37 Labs: Lab Results 02/02/21 02/02/21 02/02/21 Range/Units 04:37 04:37 05:20 WBC 5.9 (4.5-10.0) K/mm3 RBC 5.17 (4.6-6.20) M/mm3 Hgb 13.6 L (14.0-18.0) g/dL Hct 42.3 (42.0-52.0) % MCV 81.8 (80-100) fl MCH 26.3 (26-34) pg MCHC 32.2 (32-36) g/dl RDW 15.4 H (11.5-14.5) % Plt Count 181 (150-3
[2021-02-02] MEDS: SODIUM CHLORIDE 0.9% IV 1,000 ML 999 ML IV CONT (04:37)
[2021-02-02 04:49] LABS: Basophils Percent Auto 0.5 % (0.2-1.2); Eosinophils Absolute Auto 0.1 K/mm3 (0-0.3); Eosinophils Percent Auto 1.9 % (0-4.4); Hematocrit 42.3 % (42.0-52.0); Hemoglobin 13.6 g/dL (14.0-18.0); Immature Granulocyte Absolute 0.03 K/mm3 (0.00-0.031); Immature Granulocyte Percent A 0.5 % (0-0.5); Lymphocytes Absolute Auto 1.85 K/mm3 (0.9-3.2); Lymphocytes Percent Auto 31.3 % (18.3-44.2); Mean Corpuscular HGB Conc 32.2 g/dl (32-36); Mean Corpuscular Hemoglobin 26.3 pg (26-34); Mean Corpuscular Volume 81.8 fl (80-100); Mean Platelet Volume 9.5 fl (7.4-10.4); Monocytes Absolute Auto 0.7 K/mm3 (0.1-0.6); Monocytes Percent Auto 11.8 % (2.6-8.5); Neutrophils Absolute Auto 3.2 K/mm3 (1.3-6.7); Platelet Count Result 181 k/mm3 (150-375); Red Blood Count 5.17 M/mm3 (4.6-6.20); Red Cell Distribution Width 15.4 % (11.5-14.5); White Blood Count 5.9 K/mm3 (4.5-10.0)
--- NOTE | 2021-02-02 04:51 | PC.NURSE ---
Patient taken to CT.
[2021-02-02 05:00] LABS: Alanine Aminotransferase 26 U/L (4-50); Alkaline Phosphatase 69 U/L (38-126); Anion Gap 7 mmol/L (8-16); Aspartate Amino Transferase 33 U/L (17-59); Bilirubin,Total 0.4 mg/dL (0.2-1.3); Blood Urea Nitrogen 12 mg/dL (9-20); Calcium 9.2 mg/dL (8.4-10.2); Carbon Dioxide 29 mmol/L (22-30); Chloride 104 mmol/L (98-107); Estimated CRCL calculation 61 ml/min; Estimated Glomerular Filt Rate > 60; Glucose 95 mg/dL (75-110); Sodium 140 mmol/L (137-145)
[2021-02-02 05:30] VITALS: BP 146/85; PULSE 68; RESP 20; O2SAT 100
[2021-02-02 05:30] LABS: Add Urine Microscopic? NO; Appearance Urine Clear (Clear); Bilirubin Urine Negative (Negative); Blood Urine Negative (Negative); Color Urine Colorless (Yellow); Glucose Urine UA Negative (Negative); Ketones Urine Negative (Negative); Leukocyte Esterase Ur Negative LEU/UL (Negative); Nitrate Urine Negative (Negative); Protein Urine Negative (Negative); Specific Grav Ur 1.009 (1.001-1.035); Urobilinogen Urine Negative mg/dL (<2.0)
[2021-02-02 05:52] VITALS: BP 146/85; PULSE 68; RESP 15; TEMP 36.6; O2SAT 100
== END 2021-02-02 05:53 | disposition home or self-care (01) ==
PROVIDERS: Emergency Provider Emergency Medicine; PCP Emergency Medicine
DX: R42 Dizziness and giddiness (principal); I10 Essential (primary) hypertension; I25.10 Atherosclerotic heart disease of native coronary artery without angina pectoris; K21.9 Gastro-esophageal reflux disease without esophagitis; F17.200 Nicotine dependence, unspecified, uncomplicated; I44.0 Atrioventricular block, first degree; R94.31 Abnormal electrocardiogram [ECG] [EKG]
CPT/HCPCS: 36415; 70450; 80053; 81003; 85025; 93005; 96360; 99284; J7030

== ENCOUNTER 2021-03-30 03:15 | Emergency (ER) | payer MEDICARE, MEDICAID, SELFPAY ==
--- NOTE | ~2021-03-30 | CT_ITS ---
EXAMINATION: CT cervical spine wo con DATE: 03/30/2021 03:45 INDICATION: Neck pain TECHNIQUE: Computed tomography (CT) of the cervical spine was performed without intravenous contrast. The dose-length product (DLP) was 425.42 mGy-cm. Automated exposure control and iterative reconstruc tion technique were employed. COMPARISON: MRI, 05/30/2013 FINDINGS: There are changes of anterior fusion with interbody bone graft at C3-4 and C6-7. There is h ealed interbody bone graft at C5-6 and C6-7. There is 1 mm of anterolisthesis of C2 on C3 and C7 on T 1. Bone alignment is otherwise maintained. No fracture is identified. 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 There is fusion of multiple facets on the right. IMPRESSION: 1. Postsurgical changes without acute osseous abnormality. Reviewed, dictated and finalized at location A.
[2021-03-30 03:23] VITALS: BP 162/94; PULSE 80; RESP 16; TEMP 36.6; O2SAT 100
--- NOTE | 2021-03-30 03:23 | ED.GENADULT ---
HPI - General Adult General Chief complaint: Unspecified Stated complaint: think I took to much bp med Time Seen by Provider: 03/30/21 03:19 History of Present Illness HPI narrative: 65 yo male w/ h/o IBS, htn, and cervical fusion presents to the ED with nonspecific complaints. He says that he just doesn't feel right and he is afraid that he took his amlodipine too soon. He took one yesterday morning and took another one today at 1 AM. He has pain in the neck, he feels mildly dizzy, and his abdomen is bloated. Related Data Home Medications Medication Instructions Recorded Confirmed acyclovir 10/28/20 clopidogrel 10/28/20 dicyclomine mg 10/28/20 omeprazole 10/28/20 oxycodone 10/28/20 prasugrel mg 02/02/21 amlodipine 03/30/21 Allergies Allergy/AdvReac Type Severity Reaction Status Date / Time Penicillins Allergy Unknown Verified 03/30/21 03:34 Review of Systems Review of Systems: All systems reviewed & are unremarkable except as noted in HPI and below Constitutional: Constitutional: Denies fever(s) Eyes: Eyes: Reports no additional eye complaints ENT: Reports system reviewed and no additional complaints, except as documented Cardiovascular: Cardiovascular: Denies chest pain Respiratory: Respiratory: Denies dyspnea Gastrointestinal: Gastrointestinal: Denies abdominal pain, Reports nausea and Denies vomiting Genitourinary: Genitourinary: Reports no additional male genitourinary complaints Neurologic: Reports dizziness, Denies numbness and Denies weakness [facility] Past Medical History Medical History Contraindication to percutaneous coronary intervention (PCI) Coronary artery disease GERD (gastroesophageal reflux disease) Surgical History Surgical History H/O neck surgery History of esophagogastroduodenoscopy (EGD) Social History Social History Smoking status: Current every day smoker Exam Const: General: cooperative, no acute distress, alert and awake Orientation/consciousness: patient oriented x3 HENMT: Head: normal to inspection Ears: external ears normal and TM's normal bilaterally Neck: Neck: normal visual inspection Resp: Effort & Inspection: normal respiratory effort Auscultation: clear to auscultation bilaterally Cardio: Rate: regular rate and bradycardic GI: GI Palp: No abdominal tenderness Back/Spine/Pelvis: Cervical Spine: cervical muscular tenderness and cervical spasm Thoracic/Lumbar Spine: thoracic and lumbar spine normal to inspection Skin: General skin exam: normal color Neuro: General: patient oriented x3 and gait normal Extrem: General: normal to inspection Course Vital Signs Vital signs: Vital Signs Temperature 36.6 C 03/30/21 03:23 Pulse Rate 80 03/30/21 03:23 Respiratory Rate 16 03/30/21 03:23 Blood Pressure 162/94 H 03/30/21 03:23 Pulse Oximetry 100 03/30/21 03:23 Temperature 36.6 C 03/30/21 03:23 Pulse Rate 80 03/30/21 03:23 Respiratory Rate 16 03/30/21 03:23 Blood Pressure 162/94 H 03/30/21 03:23 Pulse Oximetry 100 03/30/21 03:23 Medical Decision Making Medical Records Medical records reviewed: Yes I reviewed the external patient's medical records. Vital Signs Vital Signs: Vital Signs Temperature 36.6 C 03/30/21 03:23 Pulse Rate 80 03/30/21 03:23 Respiratory Rate 16 03/30/21 03:23 Blood Pressure 162/94 H 03/30/21 03:23 Pulse Oximetry 100 03/30/21 03:23 Temperature 36.6 C 03/30/21 03:23 Pulse Rate 80 03/30/21 03:23 Respiratory Rate 16 03/30/21 03:23 Blood Pressure 162/94 H 03/30/21 03:23 Pulse Oximetry 100 03/30/21 03:23 Imaging Data Radiologist's impression: CT cervical spine negative for any acute issues Discharge Plan Discharge Clinical Impression: Neck pain Patient Disposi
[2021-03-30] MEDS: CYCLOBENZAPRINE HCL 10 MG TABLET PO (04:31)
[2021-03-30 04:35] VITALS: BP 145/97; PULSE 85; RESP 16; O2SAT 97
== END 2021-03-30 04:35 | disposition home or self-care (01) ==
PROVIDERS: Emergency Provider Emergency Medicine; PCP Emergency Medicine
DX: M54.2 Cervicalgia (principal); I10 Essential (primary) hypertension; I25.10 Atherosclerotic heart disease of native coronary artery without angina pectoris; K58.9 Irritable bowel syndrome, unspecified; K21.9 Gastro-esophageal reflux disease without esophagitis; F17.200 Nicotine dependence, unspecified, uncomplicated
CPT/HCPCS: 72125; 99283; 99284; A9270

== ENCOUNTER 2021-04-21 13:33 | Outpatient (CLI) | payer MEDICARE, MEDICAID, SELFPAY ==
--- NOTE | ~2021-04-21 | US_ITS ---
EXAMINATION: US axilla LT DATE: 04/21/2021 14:27 INDICATION: Left axillary lump. TECHNIQUE: Multiple grayscale and Doppler ultrasound images of the left axilla were obtained. COMPARISON: None FINDINGS: There is a normal lymph node in the patient's area of concern in left axilla. IMPRESSION: 1. No abnormal mass or lymphadenopathy. Reviewed, dictated and finalized at location A.
== END 2021-04-21 13:34 | disposition home or self-care (01) ==
PROVIDERS: PCP Emergency Medicine; Visit Provider Emergency Medicine
DX: R59.1 Generalized enlarged lymph nodes (principal)
CPT/HCPCS: 76882

== ENCOUNTER 2021-05-02 13:48 | Outpatient (CLI) | payer MEDICARE, MEDICAID, SELFPAY ==
--- NOTE | ~2021-05-02 | CT_ITS ---
EXAMINATION: CT lung screening DATE: 05/02/2021 14:26 INDICATION: pers hx of nicotine dependence TECHNIQUE: Computed tomography (CT) of the chest was performed without intravenous contrast. Addition al 3D reconstructions utilizing coronal maximum intensity projection (MIP) were performed. Automated exposure control and iterative reconstruction technique were employed. The dose-length product was 15 5.99 mGy-cm. COMPARISON: 03/08/2020 and 06/15/2016 FINDINGS: Mild emphysema. Mild peripheral and basilar predominant irregular septal line thickening with mild gr oundglass opacity which could represent atelectasis, minimal pulmonary edema or chronic interstitial lung disease. No interval growth in a 9 x 7 mm solid nodule with spiculated margins situated between several bronchi and pulmonary vessels in the posterior segment of the right upper lobe. There are a f ew additional scattered <4 mm calcified and noncalcified nodules in both lungs. A couple small triang ular intrafissural lymph nodes along the right major and minor fissures, the larger measuring 6 mm in maximal diameter. No pleural effusion. Heart size is normal. Atherosclerotic coronary artery calcifi c location. No pericardial effusion. Thoracic aorta is normal in caliber. No pathologically enlarged thoracic lymphadenopathy. Atherosclerotic calcifications at the bilateral renal brandy. 8 mm proteinace ous/hyperdense cyst at the upper pole of the right kidney. Stable appearance of a chronic coarse trab ecular pattern throughout the T12 vertebral body dating back to CT dated 06/15/2016 most likely eithe r a hemangioma or less likely Paget's disease. Anterior plate and screw fixation for anterior spinal fusion at C6-C7. IMPRESSION: 1. Lung-RADS category 2: Benign appearance or behavior. Continue annual screening with noncontrast lo w-dose chest CT in 12 months. Reviewed, dictated and finalized at location A. IMPRESSION: 1. Lung-RADS category 2: Benign appearance or behavior. Continue annual screeni ng with noncontrast low-dose chest CT in 12 months.
== END 2021-05-02 13:49 | disposition home or self-care (01) ==
PROVIDERS: PCP Emergency Medicine; Visit Provider Emergency Medicine
DX: Z12.2 Encounter for screening for malignant neoplasm of respiratory organs (principal); Z87.891 Personal history of nicotine dependence
CPT/HCPCS: 71271

== ENCOUNTER 2021-05-18 14:42 | Emergency (ER) | payer MEDICARE, MEDICAID, SELFPAY ==
--- NOTE | ~2021-05-18 | CT_ITS ---
EXAMINATION: CT brain wo con DATE: 05/18/2021 16:37 INDICATION: Dizziness TECHNIQUE: Computed tomography (CT) of the head was performed without intravenous contrast. The mA wa s adjusted according to patient size. Iterative reconstruction technique was employed. Exam dose: 60 5.33 mGy-cm total exam DLP. COMPARISON: 02/02/2021 CT brain FINDINGS: Cerebral atherosclerosis. There is nonspecific diminished attenuation of the cerebral white matter, likely due to chronic small vessel ischemic changes. There is cerebral and cerebellar volume loss. No intracranial mass lesion or hemorrhage or cerebrovascular accident is evident. No midline shift or mass effect effect. No subdural or epidural hematoma. No orbital mass lesion. No fracture or bone destruction of the cranial vault. Old blowout fracture of the medial wall of the left orbit. Mastoid air cells and included paranasal sinuses are unremarkable. IMPRESSION: Cerebral atherosclerosis and chronic small vessel ischemic changes of cerebral white mat ter No acute intracranial finding Reviewed, dictated and finalized at [facility]. Reviewed, dictated and finalized at location A. IMPRESSION: Cerebral atherosclerosis and chronic small vessel ischemic changes of cerebral white matter No acute intracranial finding
[2021-05-18 15:43] VITALS: BP 160/85; PULSE 77; RESP 17; TEMP 37.1; O2SAT 100
--- NOTE | 2021-05-18 15:43 | ECG_ITS ---
Measurements Intervals [place] Rate: 76 P: 20 [place]: 245 QRS: -10 QRSD: 100 T: -74 QT: 377 QTc: 426 Interpretive Statements SINUS RHYTHM WITH FIRST DEGREE AV BLOCK RSR' IN V1 OR V2, CONSIDER RIGHT VENTRICULAR HYPERTROPHY OR RIGHT VCD BORDERLINE ST-T WAVE ABNORMALITY- DIFFUSE LEADS ABNORMAL ECG Electronically Signed On 05-19-2021 9:11:44 CDT by Tay Paz D.O.
[2021-05-18 15:53] LABS: Basophils Percent Auto 0.3 % (0.2-1.2); Eosinophils Percent Auto 0.5 % (0-4.4); Immature Granulocyte Absolute 0.02 K/mm3 (0.00-0.031); Immature Granulocyte Percent A 0.3 % (0-0.5); Lymphocytes Absolute Auto 1.38 K/mm3 (0.9-3.2); Lymphocytes Percent Auto 23.6 % (18.3-44.2); Mean Corpuscular HGB Conc 33.3 g/dl (32-36); Mean Corpuscular Hemoglobin 27.9 pg (26-34); Mean Corpuscular Volume 83.8 fl (80-100); Mean Platelet Volume 9.6 fl (7.4-10.4); Monocytes Absolute Auto 0.5 K/mm3 (0.1-0.6); Monocytes Percent Auto 9.1 % (2.6-8.5); Neutrophils Absolute Auto 3.9 K/mm3 (1.3-6.7); Neutrophils Percent Auto 66.2 % (45.5-73.1); Platelet Count Result 214 k/mm3 (150-375); Red Blood Count 5.01 M/mm3 (4.6-6.20); Red Cell Distribution Width 14.4 % (11.5-14.5); White Blood Count 5.9 K/mm3 (4.5-10.0)
[2021-05-18 16:10] LABS: Anion Gap 8 mmol/L (8-16); Blood Urea Nitrogen 9 mg/dL (9-20); Calcium 9.3 mg/dL (8.4-10.2); Carbon Dioxide 26 mmol/L (22-30); Chloride 106 mmol/L (98-107); Estimated CRCL calculation 66 ml/min; Estimated Glomerular Filt Rate > 60; Glucose 112 mg/dL (65-110); Potassium 3.6 mmol/L (3.4-5.0); Sodium 140 mmol/L (137-145)
[2021-05-18 17:25] VITALS: BP 155/69; PULSE 70; RESP 16; O2SAT 98
[2021-05-18] MEDS: SODIUM CHLORIDE 0.9% IV 500 ML 999 ML IV CONT (17:25)
[2021-05-18] MEDS: LORazepam INJ (*CRX) 2 MG/ML VIAL 0.5 MG IV PUSH (17:25)
[2021-05-18] MEDS: MECLIZINE HCL 25 MG TABLET PO (17:25)
--- NOTE | 2021-05-18 18:25 | ED.DIZZY ---
HPI - Dizziness General Chief Complaint: Dizziness Stated Complaint: dizzy Time Seen by Provider: 05/18/21 15:53 Source: patient Mode of arrival: ambulatory Limitations: no limitations History of Present Illness HPI Narrative: 65-year-old with a history of hypertension here with complaints of sudden onset of dizziness since this afternoon. Patient states that the whole room was spinning at the same time he was feeling nauseated. He denied any headache or chest pain. States that he never had these kind of symptoms. Denies any weakness. But he states that he is off balance for short period of time. MD elicited complaint: dizziness Onset (ago): hour(s) (4) Timing: sudden onset Severity: moderate Description: room spinning History of similar symptoms: No Exacerbating factors: change in body position Relieving factors: remaining still Associated symptoms: nausea Related Data Home Medications Medication Instructions Recorded Confirmed acyclovir 400 mg tablet 400 mg PO BID 01/09/20 amlodipine 10 mg tablet 10 mg PO DAILY 01/09/20 aspirin 81 mg tablet,delayed 162 mg PO DAILY tablet 01/09/20 release ezetimibe 10 mg tablet 10 mg PO DAILY 01/09/20 hydralazine 50 mg tablet 50 mg PO BID tablet 01/09/20 hydroxyzine pamoate 25 mg capsule 25 mg PO BID PRN 01/09/20 ibuprofen 200 mg capsule 200 mg PO Q6H PRN 01/09/20 omeprazole 20 mg capsule,delayed 20 mg PO DAILY 01/09/20 release oxycodone 15 mg tablet 15 mg PO Q4H PRN 01/09/20 tizanidine 4 mg capsule 4 mg PO TID PRN 01/09/20 Allergies Allergy/AdvReac Type Severity Reaction Status Date / Time Penicillins Allergy Unknown Anaphylaxis Verified 05/18/21 15:46 [facility] Past Medical History Medical History Hypertension Tobacco abuse Surgical History Surgical History H/O cardiac catheterization Social History Social History Smoking status: Never smoker Exam Narrative: GENERAL: Well-appearing, well-nourished, and in no acute distress. HEAD: Normocephalic, atraumatic. EYES: PERRLA and EOMI. ENT: Nares clear, no rhinorrhea or epistaxis. Mucous membranes moist. NECK: Supple. CHEST: Clear to auscultation. No respiratory distress. HEART: Regular rate and rhythm. No murmur heard. Normal peripheral pulses. ABDOMEN: Soft, nontender, nondistended, normal active bowel sounds. EXTREMITIES: Normal range of motion. No edema. SKIN: Warm, dry, no rash. NEURO: No focal deficits. Alert and oriented x3. PSYCH: Normal mood and affect. Course Course Emergency Course: Patient feeling much better after meclizine and IV fluids and Ativan. I discussed lab work and CT findings with the patient. He does feel comfortable going home. Vital Signs Vital signs: Vital Signs Temperature 37.1 C 05/18/21 15:43 Pulse Rate 77 05/18/21 15:43 Respiratory Rate 17 05/18/21 15:43 Blood Pressure 160/85 H 05/18/21 15:43 Pulse Oximetry 100 05/18/21 15:43 Temperature 37.1 C 05/18/21 15:43 Pulse Rate 70 05/18/21 17:25 Respiratory Rate 16 05/18/21 17:25 Blood Pressure 155/69 H 05/18/21 17:25 Pulse Oximetry 98 05/18/21 17:25 MDM - Dizziness Differential Diagnosis Differential diagnosis: Likely benign paroxysmal positional vertigo, orthostatic hypotension and cerebrovascular accident Lab Data Result diagrams: 05/18/21 15:47 05/18/21 15:47 Labs: Lab Results 05/18/21 05/18/21 Range/Units 15:47 15:47 WBC 5.9 (4.5-10.0) K/mm3 RBC 5.01 (4.6-6.20) M/mm3 Hgb 14.0 (14.0-18.0) g/dL Hct 42.0 (42.0-52.0) % MCV 83.8 (80-100) fl MCH 27.9 (26-34) pg MCHC 33.3 (32-36) g/dl RDW 14.4 (11.5-14.5) % Plt Count 214 (150-375) k/mm3 MPV 9.6 (7.4-10.4) fl Immature Gran % (Auto) 0.3 (0-0.5) % Neut % (Auto) 66.2
[2021-05-18 18:53] VITALS: BP 157/83; PULSE 84; RESP 17; O2SAT 98
[2021-05-18 19:23] VITALS: BP 157/84; PULSE 84; RESP 16; O2SAT 98
== END 2021-05-18 19:23 | disposition home or self-care (01) ==
PROVIDERS: Emergency Provider Family Medicine; PCP Emergency Medicine
DX: H81.10 Benign paroxysmal vertigo, unspecified ear (principal); I10 Essential (primary) hypertension; Z79.82 Long term (current) use of aspirin; I67.2 Cerebral atherosclerosis; I44.0 Atrioventricular block, first degree; R94.31 Abnormal electrocardiogram [ECG] [EKG]
CPT/HCPCS: 36415; 70450; 80048; 85025; 93005; 96361; 96374; 99284; A9270; J2060; J7040

== ENCOUNTER 2021-05-28 12:56 | Emergency (ER) | payer MEDICARE, MEDICAID, SELFPAY ==
--- NOTE | 2021-05-28 13:01 | ED.SKABFB ---
HPI - Skin/Abscess/Foreign Bdy General Chief complaint: Skin/Abscess/Foreign Body Stated complaint: BUMPS Time Seen by Provider: 05/28/21 13:01 Source: patient and RN notes reviewed History of Present Illness HPI narrative: Patient is a 65-year-old male who presents the urgent care with complaints of bumps to the groin region . Patient states that been there for approximately 1 to 2 weeks and he has been trying to pick on them and attempted to shave over the areas today. Patient is also put Neosporin to the area. Denies of any fever, chills, nausea, vomiting. No other acute complaints. No acute distress noted. Patient aware of the plan of care. Some parts of this dictation were generated by voice recognition software and may contain typographical and/or grammatical inaccuracies. Related Data Home Medications Medication Instructions Recorded Confirmed acyclovir 400 mg tablet 400 mg PO BID 01/09/20 amlodipine 10 mg tablet 10 mg PO DAILY 01/09/20 aspirin 81 mg tablet,delayed 162 mg PO DAILY tablet 01/09/20 release ezetimibe 10 mg tablet 10 mg PO DAILY 01/09/20 hydralazine 50 mg tablet 50 mg PO BID tablet 01/09/20 hydroxyzine pamoate 25 mg capsule 25 mg PO BID PRN 01/09/20 ibuprofen 200 mg capsule 200 mg PO Q6H PRN 01/09/20 omeprazole 20 mg capsule,delayed 20 mg PO DAILY 01/09/20 release oxycodone 15 mg tablet 15 mg PO Q4H PRN 01/09/20 tizanidine 4 mg capsule 4 mg PO TID PRN 01/09/20 Allergies Allergy/AdvReac Type Severity Reaction Status Date / Time Penicillins Allergy Unknown Anaphylaxis Verified 05/18/21 15:46 Review of Systems Review of Systems: CONSTITUTIONAL: Denies fever, chills, or sweats. EYES: Denies visual changes, redness, or discharge. ENT: Denies rhinorrhea, congestion, sore throat, or otalgia. CARDIOVASCULAR: Denies chest pain, palpitations, or edema. RESPIRATORY: Denies cough or dyspnea. GASTROINTESTINAL: Denies abdominal pain, nausea, vomiting, or diarrhea. GENITOURINARY: Denies dysuria or hematuria. SKIN: Reports of bumps to the groin region MUSCULOSKELETAL: Denies back pain, joint pain, or myalgia. NEUROLOGIC: Denies headache, numbness, or weakness. All other systems reviewed are negative, except as documented in HPI. [facility] Past Medical History Medical History Hypertension Tobacco abuse Surgical History Surgical History H/O cardiac catheterization Social History Social History Smoking status: Never smoker Comments At the time of my signature, I reviewed and agree with the nursing past medical, surgical, social, and family history. There is no relevant family history pertinent to the patient complaint. Exam Narrative: GENERAL: This is a well-nourished, well-developed patient, in no apparent distress. HEAD: normocephalic, atraumatic. EYES: PERRL. Sclera clear/white. Vision is grossly intact. EARS: External ears normal NOSE: External nose normal with no obvious nasal discharge, nares without redness, no rhinorrhea. THROAT: Mucous membranes moist NECK: Neck supple CARDIOVASCULAR: Regular rate and rhythm RESPIRATORY: Clear to auscultation. Breath sounds equal bilaterally. No wheezes, rales, or rhonchi. SKIN: Pinpoint noninfected folliculitis noted to the groin without surrounding erythema or edema. Mild tenderness. Warm, intact with no suspicious lesions or rash, good texture and turgor. NEURO: awake, alert, and oriented to person, place and time. There were no obvious focal neurologic abnormalities. EXTREMITIES: No clubbing, cyanosis, or edema. Course Vital Signs Vital signs: Vital Signs Temperature 97.8 F 05/28/21 13:07 Pulse Rate 101 H 05/28/21 13:07 Respiratory Rate 16 05/28/21 13:07 Blood Pressure 146/75 H 05/28/21 13:07 Pulse Oximetry 100 05/28/21 13:07
[2021-05-28 13:07] VITALS: BP 146/75; PULSE 101; RESP 16; TEMP 36.6; O2SAT 100
== END 2021-05-28 13:19 | disposition home or self-care (01) ==
PROVIDERS: Emergency Provider Nurse Practitioner Family; PCP Emergency Medicine
DX: L73.9 Follicular disorder, unspecified (principal); I10 Essential (primary) hypertension
CPT/HCPCS: 99213; G0463

== ENCOUNTER 2021-07-20 13:26 | Emergency (ER) | payer MEDICARE, MEDICAID, SELFPAY ==
[2021-07-20] VITALS (26 sets, daily range): BP systolic 123–146; BP diastolic 76–99; PULSE 68–95; RESP 10–36; TEMP 36.6; O2SAT 97–100
--- NOTE | ~2021-07-20 | XR_ITS ---
EXAMINATION: XR chest 1V portable DATE: 07/20/2021 15:27 INDICATION: Chest pain TECHNIQUE: frontal view of the chest was obtained. COMPARISON: Chest radiograph dated 08/30/2020 FINDINGS: The lungs remain clear with no focal airspace opacities, pulmonary edema, pleural effusion or pneumot horax. The cardiomediastinal silhouette is normal. Anterior plate and screw fixation for lower cervic al anterior spinal fusion. IMPRESSION: 1. No acute cardiopulmonary disease. Reviewed, dictated and finalized at location A. ENT PRODUCER
--- NOTE | 2021-07-20 15:03 | ED.GENADULT ---
HPI - General Adult General Chief complaint: Unspecified Stated complaint: possible blood clot in neck feelling funny Time Seen by Provider: 07/20/21 15:02 Source: patient Mode of arrival: ambulatory Limitations: no limitations History of Present Illness HPI narrative: 66 year old male, poor historian states he came in today because he feels funny and was recently told he has a clot in his neck and he would like it out. No focal weakness, no dizziness, no vertigo, no dysarthria, no facial drooping, no headache, no vision changes. Has felt poorly for 3 days. Does complain of posterior neck pain and a bump near posterior neck. Has had neck surgery and would like to figure that out. Ambulatory with steady gait. Treatments prior to arrival: none Related Data Home Medications Medication Instructions Recorded Confirmed acyclovir 400 mg tablet 400 mg PO BID 01/09/20 amlodipine 10 mg tablet 10 mg PO DAILY 01/09/20 aspirin 81 mg tablet,delayed 162 mg PO DAILY tablet 01/09/20 release ezetimibe 10 mg tablet 10 mg PO DAILY 01/09/20 hydralazine 50 mg tablet 50 mg PO BID tablet 01/09/20 hydroxyzine pamoate 25 mg capsule 25 mg PO BID PRN 01/09/20 ibuprofen 200 mg capsule 200 mg PO Q6H PRN 01/09/20 omeprazole 20 mg capsule,delayed 20 mg PO DAILY 01/09/20 release oxycodone 15 mg tablet 15 mg PO Q4H PRN 01/09/20 tizanidine 4 mg capsule 4 mg PO TID PRN 01/09/20 acyclovir 10/28/20 clopidogrel 10/28/20 dicyclomine mg 10/28/20 omeprazole 10/28/20 oxycodone 10/28/20 prasugrel mg 02/02/21 amlodipine 03/30/21 Allergies Allergy/AdvReac Type Severity Reaction Status Date / Time Penicillins Allergy Unknown Anaphylaxis Verified 07/20/21 15:29 Review of Systems Constitutional: Comments: afebrile, answerting all questions appropriately, NAD Eyes: Comments: no vision changes, no loss of vision ENT: Comments: does complain of lump on neck, no neck pain, no hoarseness Cardiovascular: Comments: no chest pain, no lower extremity swelling Respiratory: Comments: no cough, no wheezing, no shortness of breath Gastrointestinal: Comments: no nausea, no vomiting no abdominal pain Genitourinary: Comments: no flank pain, no dysuria, no urniary retention Musculoskeletal: Comments: no muscle weakness, no body aches, no deformity Integumentary/Breasts: Comments: no rashes, no itching, no jaudice Neurologic: Reports system reviewed and no additional complaints, except as documented Psychiatric: Comments: no SI/ no anxiety, no confusion PMFSH Past Medical History Medical History Contraindication to percutaneous coronary intervention (PCI) Coronary artery disease GERD (gastroesophageal reflux disease) Hypertension Tobacco abuse Surgical History Surgical History H/O cardiac catheterization Social History Social History (System 06/11/21 @ 10:58 by Maria Dolores Stevens) Smoking status: Current every day smoker Exam Const: General: no acute distress and other (afebrile) Nutritional Appearance: well nourished Orientation/consciousness: patient oriented x3 Limitations: no limitations HENMT: Head: normocephalic, atraumatic and other (no carotid bruits) Ears: hearing grossly normal bilaterally Face and sinus: sinuses nontender Mouth: Yes moist mucous membranes Throat: posterior oropharynx normal Eyes: Alignment and Position: alignment normal Pupils: Equal, round and reactive pupils present EOM: EOMs intact bilaterally Neck: Neck: full ROM, no lymphadenopathy, no meningeal signs, trachea midline, no JVD and other (no LAD, no crepitus, no neck masses or lump) Thyroid: thyroid normal Carotids: other (no carotid bruits) Chest: Chest palpation & inspection: normal inspection of the chest Other: no crepitus, no chest wall trauma Resp: Effort & Inspection: normal respiratory effort and able t
--- NOTE | 2021-07-20 15:11 | ECG_ITS ---
Measurements Intervals [place] Rate: 70 P: -21 LA: 227 QRS: -12 QRSD: 105 T: 230 QT: 373 QTc: 404 Interpretive Statements SINUS RHYTHM WITH FIRST DEGREE AV BLOCK EARLY PRECORDIAL R/S TRANSITION NONSPECIFIC ST & T-WAVE ABNORMALITY- DIFFUSE LEADS BASELINE ARTIFACT- I, II, AVR ABNORMAL ECG Electronically Signed On 07-20-2021 17:35:20 PARIMUTUEL CASHIER by Tay Paz D.O.
[2021-07-20] MEDS: NITROGLYCERIN OINTMENT 1 INCH DOSE TRANSDERM (15:53)
[2021-07-20] MEDS: FAMOTIDINE 20 MG/2 ML VIAL IV PUSH (15:53)
[2021-07-20 16:06] LABS: Basophils Percent Auto 0.4 % (0.2-1.2); Eosinophils Percent Auto 0.6 % (0-4.4); Hematocrit 38.6 % (42.0-52.0); Hemoglobin 12.8 g/dL (14.0-18.0); Immature Granulocyte Absolute 0.02 K/mm3 (0.00-0.031); Immature Granulocyte Percent A 0.4 % (0-0.5); Lymphocytes Absolute Auto 0.98 K/mm3 (0.9-3.2); Mean Corpuscular HGB Conc 33.2 g/dl (32-36); Mean Corpuscular Hemoglobin 27.8 pg (26-34); Mean Corpuscular Volume 83.7 fl (80-100); Mean Platelet Volume 9.7 fl (7.4-10.4); Monocytes Absolute Auto 0.4 K/mm3 (0.1-0.6); Monocytes Percent Auto 8.6 % (2.6-8.5); Neutrophils Absolute Auto 3.4 K/mm3 (1.3-6.7); Platelet Count Result 226 k/mm3 (150-375); Red Blood Count 4.61 M/mm3 (4.6-6.20); White Blood Count 4.9 K/mm3 (4.5-10.0)
[2021-07-20 16:15] LABS: Prothrombin Time 12.7 Seconds (11.1-14.7)
[2021-07-20 16:16] LABS: Partial Thromboplastin Time 30.3 SECONDS (22.3-36.8)
[2021-07-20 16:17] LABS: Alanine Aminotransferase 19 U/L (4-50); Albumin Level 4.4 g/dL (3.5-5.1); Alkaline Phosphatase 72 U/L (38-126); Anion Gap 7 mmol/L (8-16); Aspartate Amino Transferase 29 U/L (17-59); Bilirubin,Total 0.3 mg/dL (0.2-1.3); Blood Urea Nitrogen 8 mg/dL (9-20); Calcium 9.2 mg/dL (8.4-10.2); Carbon Dioxide 26 mmol/L (22-30); Chloride 101 mmol/L (98-107); Estimated CRCL calculation 72 ml/min; Estimated Glomerular Filt Rate > 60; Glucose 103 mg/dL (65-110); Lipase 20 U/L (23-300); Sodium 134 mmol/L (137-145)
[2021-07-20 16:28] LABS: Troponin I < 0.012 ng/mL (0.000-0.034)
== END 2021-07-20 19:05 | disposition home or self-care (01) ==
PROVIDERS: Emergency Provider Emergency Medicine; PCP Emergency Medicine
DX: R10.9 Unspecified abdominal pain (principal); I25.10 Atherosclerotic heart disease of native coronary artery without angina pectoris; I10 Essential (primary) hypertension; K21.9 Gastro-esophageal reflux disease without esophagitis; Z79.82 Long term (current) use of aspirin; F17.200 Nicotine dependence, unspecified, uncomplicated; I44.0 Atrioventricular block, first degree; R94.31 Abnormal electrocardiogram [ECG] [EKG]
CPT/HCPCS: 36415; 71045; 80053; 83690; 84484; 85025; 85610; 85730; 93005; 96374; 99284; A9270

== ENCOUNTER 2021-07-22 13:51 | Outpatient (CLI) | payer MEDICARE, MEDICAID, SELFPAY ==
--- NOTE | ~2021-07-22 | CT_ITS ---
EXAMINATION: CTA neck DATE: 07/22/2021 14:46 INDICATION: Carotid stenosis. TECHNIQUE: Computed tomographic angiography (CTA) of the neck was performed with 100 mL Omnipaque-350 intravenous contrast. Automated exposure control and iterative reconstruction technique were employe d. The dose-length product was 615.26 mGy-cm. Maximum intensity projection 3D-reconstructions were cr eated by the technologist on a separate workstation. COMPARISON: Chest CT 05/02/2021, 03/08/2020 FINDINGS: There is mild emphysema. There is mild scarring in the upper lobes bilaterally. There is a 1.3 cm nodule in right lung upper lobe. There is an 18 x 12 mm right paratracheal lymph node. There i s a chronic 15 x 12 mm mass in the left superior mediastinum that may be a thyroid nodule. There are nodules in the thyroid measuring up to 8 mm, likely not clinically significant. There is mild stenosi s of the origins of the vertebral arteries. There is total occlusion of cervical right internal carot id artery. There is plaque in proximal left internal carotid artery. There is 27% stenosis of the pro ximal left internal carotid artery relative to normal distal artery lumen diameter. There are changes of anterior fusion procedures from C3 to C7. IMPRESSION: 1. 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 2. 27% stenosis of the proximal left internal carotid artery relative to normal distal artery lumen d iameter. 3. 1.3 cm nodule in right lung upper lobe, which may be infection or primary bronchogenic carcinoma. Noncontrast low-dose chest CT is recommended in one month. 4. Mildly enlarged mediastinal lymph node. 5. Mild emphysema. Reviewed, dictated and finalized at location B. R PROCESSING MACHINE HELPER IMPRESSION: 1. 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 2. 27% stenosis of the proximal left internal carotid artery relative to normal distal artery lumen diameter. 3. 1.3 cm nodule in right lung upper lobe, which may be infection or primary br onchogenic carcinoma. Noncontrast low-dose chest CT is recommended in one month . 4. Mildly enlarged mediastinal lymph node. 5. Mild emphysema.
== END 2021-07-22 13:52 | disposition home or self-care (01) ==
LOC: ANHIMG 13:57
PROVIDERS: PCP Emergency Medicine; Visit Provider Internal Medicine Cardiovascular Disease
DX: R06.02 Shortness of breath (principal); R73.03 Prediabetes; J43.9 Emphysema, unspecified
CPT/HCPCS: 70498; Q9967

== ENCOUNTER 2021-08-26 14:39 | Outpatient (CLI) | payer MEDICARE, MEDICAID, SELFPAY ==
--- NOTE | ~2021-08-26 | CT_ITS ---
EXAMINATION: CTA neck DATE: 08/26/2021 15:08 INDICATION: Prediabetes. TECHNIQUE: Computed tomographic angiography (CTA) of the neck was performed with 100 mL Omnipaque-350 intravenous contrast. Automated exposure control and iterative reconstruction technique were employe d. The dose-length product was 724.84 mGy-cm. Maximum intensity projection 3D-reconstructions were cr eated by the technologist on a separate workstation. COMPARISON: Neck CTA 07/22/2021, chest CT 05/02/21 FINDINGS: There is mild emphysema. There is a 1.5 cm nodule in right lung upper lobe. There is mild s carring at the lung apices. There are nodules in the thyroid measuring up to 14 mm, likely not clinic ally significant. There are no pathologically enlarged lymph nodes. There is total occlusion of cervi fuad right internal carotid artery with supraclinoid reconstitution. There is plaque in proximal left internal carotid artery. There is 32% stenosis of the proximal left internal carotid artery relative to normal distal artery lumen diameter. There is no significant stenosis of the vertebral arteries. T here are changes of anterior fusion procedures from C3 to C7. There is moderate cervical spondylosis. IMPRESSION: 1. 1.5 cm nodule in right lung upper lobe suspicious for primary bronchogenic carcinoma, increased fr om 1.3 cm on 07/22/21. CT-guided biopsy is recommended. 2. 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 3. 32% stenosis of the proximal right internal carotid artery relative to normal distal artery lumen diameter (NASCET criteria). Reviewed, dictated and finalized at location B. UNTING REPRESENTATIVE IMPRESSION: 1. 1.5 cm nodule in right lung upper lobe suspicious for primary bronchogenic c arcinoma, increased from 1.3 cm on 07/22/21. CT-guided biopsy is recommended. 2. 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 3. 32% stenosis of the proximal right internal carotid artery relative to norm al distal artery lumen diameter (NASCET criteria).
[2021-08-26 15:04] LABS: Estimated Glomerular Filt Rate > 60
== END 2021-08-26 14:40 | disposition home or self-care (01) ==
LOC: ANHIMG 14:43
PROVIDERS: PCP Emergency Medicine; Visit Provider Internal Medicine Cardiovascular Disease
DX: R73.03 Prediabetes (principal); R91.1 Solitary pulmonary nodule; I65.21 Occlusion and stenosis of right carotid artery
CPT/HCPCS: 70498; Q9967

== ENCOUNTER 2021-10-13 04:11 | Emergency (ER) | payer MEDICARE, MEDICAID, SELFPAY ==
--- NOTE | ~2021-10-13 | XR_ITS ---
EXAMINATION: XR abdomen obstructive series DATE: 10/13/2021 04:47 INDICATION: Bloating. TECHNIQUE: Upright and supine views of the abdomen on 3 radiographs were obtained. COMPARISON: Abdomen radiographs 08/23/2016 FINDINGS: There are no dilated loops of bowel. There is a small volume of stool in the colon. There a re vascular stents in the area of the common iliac arteries, right external iliac artery, and left ricci perficial femoral artery. No free intraperitoneal gas. IMPRESSION: 1. Nonobstructive bowel gas pattern. Reviewed, dictated and finalized at location A. UT BLANCHER
[2021-10-13 04:14] VITALS: BP 142/101; PULSE 88; RESP 18; TEMP 36.5; O2SAT 100
--- NOTE | 2021-10-13 04:27 | ECG_ITS ---
Measurements Intervals [place] Rate: 80 P: -30 [place]: 246 QRS: -6 QRSD: 105 T: 238 QT: 370 QTc: 429 Interpretive Statements SINUS RHYTHM WITH FIRST DEGREE AV BLOCK BORDERLINE ST-T WAVE ABNORMALITY- ANTEROLAT/INF LEADS BASELINE ARTIFACT- I, II, III, AVR, AVL, AVF, V4-V6 ABNORMAL ECG Electronically Signed On 10-13-2021 6:01:15 INSURANCE ACCOUNT EXECUTIVE by Tay Paz D.O.
--- NOTE | 2021-10-13 04:35 | ED.ABDPAIN ---
HPI - Abdominal Pain General Chief Complaint: Abdominal Pain Stated Complaint: stomach bloating, sore throat Time Seen by Provider: 10/13/21 04:14 History of Present Illness HPI narrative: Patient is a 66-year-old male who presents ER with 2 complaints. First complaint is abdominal bloating. Ongoing for 2 days. Continues to have bowel movements. Yesterday took some prunes to help with his bowel movement. No history of surgery on his abdomen. Denies chest pain or chest pressure. He has had some sinus congestion over the last couple days associated with postnasal drip and sore throat. No known sick contacts. Denies fevers or chills but endorses feeling flushed. After having that feeling he came in this evening. Reports history of AL. Has had some discomfort in his left arm that is nonspecific and cannot describe aggravating or alleviating factors. Related Data Home Medications Medication Instructions Recorded Confirmed acyclovir 400 mg tablet 400 mg PO BID 01/09/20 amlodipine 10 mg tablet 10 mg PO DAILY 01/09/20 aspirin 81 mg tablet,delayed 162 mg PO DAILY tablet 01/09/20 release ezetimibe 10 mg tablet 10 mg PO DAILY 01/09/20 hydralazine 50 mg tablet 50 mg PO BID tablet 01/09/20 hydroxyzine pamoate 25 mg capsule 25 mg PO BID PRN 01/09/20 ibuprofen 200 mg capsule 200 mg PO Q6H PRN 01/09/20 omeprazole 20 mg capsule,delayed 20 mg PO DAILY 01/09/20 release oxycodone 15 mg tablet 15 mg PO Q4H PRN 01/09/20 tizanidine 4 mg capsule 4 mg PO TID PRN 01/09/20 acyclovir 10/28/20 clopidogrel 10/28/20 dicyclomine mg 10/28/20 omeprazole 10/28/20 oxycodone 10/28/20 prasugrel mg 02/02/21 amlodipine 03/30/21 Allergies Allergy/AdvReac Type Severity Reaction Status Date / Time Penicillins Allergy Unknown Anaphylaxis Verified 10/13/21 04:16 Review of Systems Review of Systems: All systems reviewed & are unremarkable except as noted in HPI and below Constitutional: Constitutional: Denies chills, Denies fever(s) and Denies weakness Comments: Feeling flushed ENT: Reports nasal congestion and Reports sore throat Cardiovascular: Cardiovascular: Denies chest pain, Denies rapid heart rate and Denies radiating jaw, neck or arm pain Respiratory: Respiratory: Denies cough and Denies dyspnea Gastrointestinal: Gastrointestinal: Denies abdominal pain, Reports bloating, Reports constipation, Denies nausea and Denies vomiting Comments: Had a bowel movement yesterday after using prunes Musculoskeletal: Musculoskeletal: Denies arthralgias and Denies muscle cramps PMFSH Past Medical History Medical History (Updated 10/13/21 @ 06:19 by Avtar Becerra MD) Contraindication to percutaneous coronary intervention (PCI) Coronary artery disease GERD (gastroesophageal reflux disease) Hypertension Peripheral vascular disease Tobacco abuse Surgical History Surgical History (Updated 06/11/21 @ 10:58 by Maria Dolores Stevens) H/O cardiac catheterization H/O neck surgery History of esophagogastroduodenoscopy (EGD) Social History Social History (System 06/11/21 @ 10:58 by Maria Dolores Stevens) Smoking status: Current every day smoker Exam Narrative: GENERAL: Well-appearing, well-nourished, and in no acute distress. HEAD: Normocephalic, atraumatic. ENT: Mucous membranes moist. Normal-appearing posterior oropharynx. No sinus tenderness. NECK: Supple. CHEST: Clear to auscultation. No respiratory distress. HEART: Regular rate and rhythm. Normal peripheral pulses. ABDOMEN: Soft, nontender, nondistended, normal active bowel sounds. EXTREMITIES: Normal range of motion. No edema. SKIN: Warm, dry, no rash. NEURO: Alert and oriented x3. PSYCH: Normal mood and affect. Course Course Emergency Course: Patient resting comfortably. Informed results. Discussed treatment plan. Discharge home. Vital Signs Vital signs: Vital Signs Temperature 97.7 F 10/13/21 04:14 Pulse Rate 88 10/13/21 04:14 Res
--- NOTE | 2021-10-13 04:45 | PC.NURSE ---
Pt to XRAY via stretcher at this time.
[2021-10-13 04:46] LABS: Basophils Percent Auto 0.6 % (0.2-1.2); Eosinophils Absolute Auto 0.1 K/mm3 (0-0.3); Eosinophils Percent Auto 2.3 % (0-4.4); Hematocrit 39.1 % (42.0-52.0); Hemoglobin 12.4 g/dL (14.0-18.0); Immature Granulocyte Absolute 0.01 K/mm3 (0.00-0.031); Immature Granulocyte Percent A 0.2 % (0-0.5); Lymphocytes Percent Auto 35.4 % (18.3-44.2); Mean Corpuscular HGB Conc 31.7 g/dl (32-36); Mean Corpuscular Hemoglobin 26.1 pg (26-34); Mean Corpuscular Volume 82.1 fl (80-100); Mean Platelet Volume 9.8 fl (7.4-10.4); Monocytes Absolute Auto 0.8 K/mm3 (0.1-0.6); Monocytes Percent Auto 16.5 % (2.6-8.5); Neutrophils Absolute Auto 2.2 K/mm3 (1.3-6.7); Platelet Count Result 222 k/mm3 (150-375); Red Blood Count 4.76 M/mm3 (4.6-6.20); Red Cell Distribution Width 14.7 % (11.5-14.5); White Blood Count 4.8 K/mm3 (4.5-10.0)
[2021-10-13 04:59] LABS: Alanine Aminotransferase 20 U/L (4-50); Alkaline Phosphatase 79 U/L (38-126); Anion Gap 11 mmol/L (8-16); Aspartate Amino Transferase 27 U/L (17-59); Bilirubin,Total 0.4 mg/dL (0.2-1.3); Blood Urea Nitrogen 12 mg/dL (9-20); Carbon Dioxide 26 mmol/L (22-30); Chloride 101 mmol/L (98-107); Estimated CRCL calculation 60 ml/min; Estimated Glomerular Filt Rate > 60; Glucose 99 mg/dL (65-110); Lipase 37 U/L (23-300); Potassium 3.8 mmol/L (3.4-5.0); Sodium 138 mmol/L (137-145)
[2021-10-13 05:28] LABS: Add Urine Microscopic? NO; Appearance Urine Clear (Clear); Bilirubin Urine Negative (Negative); Blood Urine Negative (Negative); Color Urine Yellow (Yellow); Glucose Urine UA Negative (Negative); Ketones Urine Negative (Negative); Leukocyte Esterase Ur Negative LEU/UL (Negative); Nitrate Urine Negative (Negative); Protein Urine Negative (Negative); Specific Grav Ur 1.015 (1.001-1.035); Urobilinogen Urine Negative mg/dL (<2.0)
[2021-10-13 05:41] LABS: Troponin I < 0.012 ng/mL (0.000-0.034)
[2021-10-13 06:15] VITALS: BP 145/90; PULSE 92; RESP 18; O2SAT 100
== END 2021-10-13 06:25 | disposition home or self-care (01) ==
PROVIDERS: Emergency Provider Emergency Medicine; PCP Emergency Medicine
DX: K59.00 Constipation, unspecified (principal); J06.9 Acute upper respiratory infection, unspecified; I25.2 Old myocardial infarction; Z79.82 Long term (current) use of aspirin; I25.10 Atherosclerotic heart disease of native coronary artery without angina pectoris; K21.9 Gastro-esophageal reflux disease without esophagitis; I10 Essential (primary) hypertension; I73.9 Peripheral vascular disease, unspecified; F17.200 Nicotine dependence, unspecified, uncomplicated; I44.0 Atrioventricular block, first degree; R94.31 Abnormal electrocardiogram [ECG] [EKG]
CPT/HCPCS: 36415; 74019; 80053; 81003; 83690; 84484; 85025; 87081; 87880; 93005; 99284

== ENCOUNTER 2021-11-06 11:46 | Emergency (ER) | payer MEDICARE, MEDICAID, SELFPAY ==
[2021-11-06 11:51] VITALS: BP 154/79; PULSE 87; RESP 16; TEMP 36.4; O2SAT 100
--- NOTE | 2021-11-06 11:54 | ED.EAR ---
HPI - Ear Problem General Chief complaint: Ear Stated complaint: Sore throat, headache, ear pain Time Seen by Provider: 11/06/21 11:54 Source: patient, RN notes reviewed and old records reviewed Mode of arrival: ambulatory Limitations: no limitations History of Present Illness HPI Narrative: 66 YEAR OLD MALE PRESENTS TO [facility] WITH COMPLAINTS OF LEFT EAR PAIN AND SOME NASAL CONGESTION FOR ONE WEEK DURATION.PATIENT STATES THAT HE HAS BEEN TAKING SOME EQUATE SUDAFED STUFF FOR HIS SINUS CONGESTION. PATIENT DENIES ANY DRAINAGE FROM HIS LEFT EAR BUT STATES THAT HE HAS PAIN TO HIS LEFT EAR. PATIENT REPORTS FACIAL SINUS PRESSURE WITH HEADACHE PAIN IN FRONTAL AREA. PATIENT REPORTS THAT HE NEEDS A Z-MARY ELLEN FOR HIS SINUS PROBLEMS AND HIS EAR. MD Complaint: ear pain Location: left ear Duration: constant Severity: moderate Relieving factors: nothing Discharge from ear: Reports no Associated symptoms ear: headache, rhinorrhea and other (SINUS CONGESTION WITH PRESSURE TO HIS FACE AND HEADACHE) Treatment prior to arrival: other (otc medication) Related Data Home Medications Medication Instructions Recorded Confirmed acyclovir 400 mg tablet 400 mg PO BID 01/09/20 11/06/21 amlodipine 10 mg tablet 10 mg PO DAILY 01/09/20 11/06/21 aspirin 81 mg tablet,delayed 162 mg PO DAILY tablet 01/09/20 11/06/21 release hydralazine 50 mg tablet 50 mg PO BID tablet 01/09/20 11/06/21 hydroxyzine pamoate 25 mg capsule 25 mg PO BID PRN 01/09/20 11/06/21 ibuprofen 200 mg capsule 200 mg PO Q6H PRN 01/09/20 11/06/21 oxycodone 15 mg tablet 15 mg PO Q4H PRN 01/09/20 11/06/21 dicyclomine 10 mg PO BID 10/28/20 11/06/21 prasugrel 10 mg PO DAILY 02/02/21 11/06/21 doxazosin 2 mg tablet 2 mg PO DAILY 10/31/21 11/06/21 pantoprazole 40 mg PO DAILY 11/06/21 11/06/21 rosuvastatin 10 mg PO DAILY 11/06/21 11/06/21 Allergies Allergy/AdvReac Type Severity Reaction Status Date / Time Penicillins Allergy Unknown Anaphylaxis Verified 11/06/21 11:51 Review of Systems Review of Systems: CONSTITUTIONAL: Denies fever, chills, or sweats. EYES: Denies visual changes, redness, or discharge. ENT: POSITIVE FOR rhinorrhea, congestion, NO sore throat, LEFT otalgia. CARDIOVASCULAR: Denies chest pain, palpitations, or edema. RESPIRATORY: POSITIVE cough NO dyspnea. GASTROINTESTINAL: Denies abdominal pain, nausea, vomiting, or diarrhea. GENITOURINARY: Denies dysuria or hematuria. SKIN: Denies rash or itching. MUSCULOSKELETAL: CHRONIC back pain, joint pain, or myalgia. NEUROLOGIC: POSITIVE FRONTAL HEADACHE, NO numbness, or weakness. PSYCHIATRIC: Denies anxiety or depression. All systems reviewed & are unremarkable except as noted in HPI and below PMFSH Past Medical History Medical History Contraindication to percutaneous coronary intervention (PCI) Coronary artery disease GERD (gastroesophageal reflux disease) Hypertension Peripheral vascular disease Tobacco abuse Surgical History Surgical History H/O cardiac catheterization H/O neck surgery History of esophagogastroduodenoscopy (EGD) Social History Social History (Updated 11/06/21 @ 12:25 by Marifer Mosquera NP) Smoking packs per day: 1 Smoking cigarettes per day: 20.0 Smoking status: Current every day smoker Tobacco type: cigarettes Alcohol intake: current Alcohol use details: OCCASIONAL BEER Substance use: never Living arrangements: with family Gender identity (if verbalized by the patient): Male Comments At time of signature, agree with nursing past medical, surgical, social and family history. There is no relevant family history pertinent to the presenting complaint Exam Narrative: GENERAL: Well-appearing, well-nourished, and in no acute distress. HEAD: Normocephalic, atraumatic. EYES: PERRLA and EOMI. ENT: Nares RED WITH CLEAR rhinorrhea NO epistaxis. Mucous membranes moist.TM'S NO
== END 2021-11-06 12:32 | disposition home or self-care (01) ==
PROVIDERS: Emergency Provider Registered Nurse; PCP Emergency Medicine
DX: J32.9 Chronic sinusitis, unspecified (principal); H92.02 Otalgia, left ear; F17.210 Nicotine dependence, cigarettes, uncomplicated; I25.10 Atherosclerotic heart disease of native coronary artery without angina pectoris; K21.9 Gastro-esophageal reflux disease without esophagitis; I10 Essential (primary) hypertension; I73.9 Peripheral vascular disease, unspecified; Z79.82 Long term (current) use of aspirin
CPT/HCPCS: 99213; G0463

== ENCOUNTER 2021-11-14 10:44 | Emergency (ER) | payer MEDICARE, MEDICAID, SELFPAY ==
[2021-11-14 10:53] VITALS: BP 126/72; PULSE 77; RESP 16; TEMP 36.2; O2SAT 100
--- NOTE | 2021-11-14 11:13 | ED.EAR ---
HPI - Ear Problem General Chief complaint: Ear Stated complaint: EARACHE Time Seen by Provider: 11/14/21 11:13 Source: patient, RN notes reviewed and old records reviewed Mode of arrival: ambulatory Limitations: no limitations History of Present Illness HPI Narrative: 66 year old male who presents to [facility] care with complaints of pain to his right ear for 1 week duration. Patient reports that he feels like there is a bump in his ear that is causing his discomfort. He reports that he put a Q-tip in his ear to scratch his ear canal. Patient was prescribed a Z-pack on the of this month for sinusitis which he reports completing. Patient has no fevers chills or sweats has been taking OTC medication and also his prescribed pain medications with continued ear discomfort voiced. MD Complaint: ear pain Location: right ear Severity: mild Relieving factors: NDAIDs and prescription analgesics Discharge from ear: Reports no Related Data Home Medications Medication Instructions Recorded Confirmed acyclovir 400 mg tablet 400 mg PO BID 01/09/20 11/06/21 amlodipine 10 mg tablet 10 mg PO DAILY 01/09/20 11/06/21 aspirin 81 mg tablet,delayed 162 mg PO DAILY tablet 01/09/20 11/06/21 release hydralazine 50 mg tablet 50 mg PO BID tablet 01/09/20 11/06/21 hydroxyzine pamoate 25 mg capsule 25 mg PO BID PRN 01/09/20 11/06/21 ibuprofen 200 mg capsule 200 mg PO Q6H PRN 01/09/20 11/06/21 oxycodone 15 mg tablet 15 mg PO Q4H PRN 01/09/20 11/06/21 dicyclomine 10 mg PO BID 10/28/20 11/06/21 prasugrel 10 mg PO DAILY 02/02/21 11/06/21 doxazosin 2 mg tablet 2 mg PO DAILY 10/31/21 11/06/21 pantoprazole 40 mg PO DAILY 11/06/21 11/06/21 rosuvastatin 10 mg PO DAILY 11/06/21 11/06/21 Allergies Allergy/AdvReac Type Severity Reaction Status Date / Time Penicillins Allergy Unknown Anaphylaxis Verified 11/06/21 11:51 Review of Systems Review of Systems: CONSTITUTIONAL: Denies fever, chills, or sweats. EYES: Denies visual changes, redness, or discharge. ENT: Positive for rhinorrhea,no congestion, sore throat, positive for right ear otalgia. CARDIOVASCULAR: Denies chest pain, palpitations, or edema. RESPIRATORY: chronic cough denies any acute dyspnea. GASTROINTESTINAL: Denies abdominal pain, nausea, vomiting, or diarrhea. GENITOURINARY: Denies dysuria or hematuria. SKIN: Denies rash or itching. MUSCULOSKELETAL: Chronic back and neck pain, joint pain, or myalgia. NEUROLOGIC: Denies headache, numbness, or weakness. PSYCHIATRIC: Denies anxiety or depression. All systems reviewed & are unremarkable except as noted in HPI and below PMFSH Past Medical History Medical History Contraindication to percutaneous coronary intervention (PCI) Coronary artery disease GERD (gastroesophageal reflux disease) Hypertension Peripheral vascular disease Tobacco abuse Surgical History Surgical History H/O cardiac catheterization H/O neck surgery History of esophagogastroduodenoscopy (EGD) Social History Social History Smoking packs per day: 1 Smoking cigarettes per day: 20.0 Smoking status: Current every day smoker Tobacco type: cigarettes Alcohol intake: current Alcohol use details: OCCASIONAL BEER Substance use: never Gender identity (if verbalized by the patient): Male Comments At time of signature, agree with nursing past medical, surgical, social and family history. There is no relevant family history pertinent to the presenting complaint Exam Narrative: GENERAL: Well-appearing, well-nourished, and in no acute distress. HEAD: Normocephalic, atraumatic. EYES: PERRLA and EOMI. ENT: Nares clear rhinorrhea no epistaxis. Mucous membranes moist.Right TM normal with ear canal red and excoriated with small raised scabbed tissue noted, no drainage noted. Left TM normal with good light
== END 2021-11-14 11:31 | disposition home or self-care (01) ==
PROVIDERS: Emergency Provider Registered Nurse; PCP Emergency Medicine
DX: H60.501 Unspecified acute noninfective otitis externa, right ear (principal); F17.210 Nicotine dependence, cigarettes, uncomplicated; I25.10 Atherosclerotic heart disease of native coronary artery without angina pectoris; K21.9 Gastro-esophageal reflux disease without esophagitis; I10 Essential (primary) hypertension; I73.9 Peripheral vascular disease, unspecified; Z79.82 Long term (current) use of aspirin
CPT/HCPCS: 99213; G0463

== ENCOUNTER 2021-12-10 11:38 | Emergency (ER) | payer MEDICARE, MEDICAID, SELFPAY ==
[2021-12-10 11:40] VITALS: BP 172/78; PULSE 78; RESP 20; TEMP 36.3; O2SAT 98
--- NOTE | 2021-12-10 12:53 | ED.GENADULT ---
HPI - General Adult General Chief complaint: Skin/Abscess/Foreign Body Stated complaint: knot on my chest Time Seen by Provider: 12/10/21 12:19 Source: patient Mode of arrival: ambulatory Limitations: no limitations History of Present Illness HPI narrative: Patient is 66 years old -Romanian male presents with feeling a lump under the skin of left chest for years. Patient was seen by Dr. Elizalde the traffic lieutenant for pulmonary nodules and is scheduled for PET scan tomorrow. Patient is concerned about the possibility of blood clot under the skin of the chest. Patient is anxious and stressed about the PET scan tomorrow. Patient denies any fever, chills, nausea, vomiting, chest pain, shortness of breath, abdominal pain or back pain. Patient reports some lymph nodes left axilla. Related Data Home Medications Medication Instructions Recorded Confirmed acyclovir 400 mg tablet 400 mg PO BID 01/09/20 11/06/21 amlodipine 10 mg tablet 10 mg PO DAILY 01/09/20 11/06/21 aspirin 81 mg tablet,delayed 162 mg PO DAILY tablet 01/09/20 11/06/21 release hydralazine 50 mg tablet 50 mg PO BID tablet 01/09/20 11/06/21 hydroxyzine pamoate 25 mg capsule 25 mg PO BID PRN 01/09/20 11/06/21 ibuprofen 200 mg capsule 200 mg PO Q6H PRN 01/09/20 11/06/21 oxycodone 15 mg tablet 15 mg PO Q4H PRN 01/09/20 11/06/21 dicyclomine 10 mg PO BID 10/28/20 11/06/21 prasugrel 10 mg PO DAILY 02/02/21 11/06/21 doxazosin 2 mg tablet 2 mg PO DAILY 10/31/21 11/06/21 pantoprazole 40 mg PO DAILY 11/06/21 11/06/21 rosuvastatin 10 mg PO DAILY 11/06/21 11/06/21 Allergies Allergy/AdvReac Type Severity Reaction Status Date / Time Penicillins Allergy Unknown Anaphylaxis Verified 11/06/21 11:51 Review of Systems Review of Systems: CONSTITUTIONAL: Denies fever, chills, or sweats. EYES: Denies visual changes, redness, or discharge. ENT: Denies rhinorrhea, congestion, sore throat, or otalgia. CARDIOVASCULAR: Denies chest pain, palpitations, or edema. RESPIRATORY: Denies cough or dyspnea. GASTROINTESTINAL: Denies abdominal pain, nausea, vomiting, or diarrhea. GENITOURINARY: Denies dysuria or hematuria. SKIN: Denies rash or itching. MUSCULOSKELETAL: Denies back pain, joint pain, or myalgia. NEUROLOGIC: Denies headache, numbness, or weakness. PSYCHIATRIC: Denies anxiety or depression. PMFSH Past Medical History Medical History Contraindication to percutaneous coronary intervention (PCI) Coronary artery disease GERD (gastroesophageal reflux disease) Hypertension Peripheral vascular disease Tobacco abuse Surgical History Surgical History H/O cardiac catheterization H/O neck surgery History of esophagogastroduodenoscopy (EGD) Social History Social History Smoking packs per day: 1 Smoking cigarettes per day: 20.0 Smoking status: Current every day smoker Tobacco type: cigarettes Alcohol intake: current Alcohol use details: OCCASIONAL BEER Substance use: never Gender identity (if verbalized by the patient): Male Exam Narrative: General appearance: Well-developed, well-nourished Skin: Normal color Head: Normocephalic, nontraumatic Eyes: Clear conjunctiva ENT: Oropharynx normal, ears normal, nose normal Neck: Supple, nontender Chest and respiratory: Airway patent, no respiratory distress, no accessory muscle use. Gynecomastia bilaterally, masslike feeling under the skin of the medial side of left breast, no tenderness, no lymphadenopathy in the axilla bilaterally. Heart: Regular rate/rhythm Abdomen: Soft, nontender, no organomegaly, quiet bowel sounds Vascular: Normal peripheral pulses, normal capillary refill. 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
[2021-12-10 13:09] VITALS: BP 118/75; PULSE 77; RESP 17; O2SAT 100
== END 2021-12-10 13:10 | disposition home or self-care (01) ==
PROVIDERS: Emergency Provider Emergency Medicine
DX: N63.20 Unspecified lump in the left breast, unspecified quadrant (principal); F41.9 Anxiety disorder, unspecified; I25.10 Atherosclerotic heart disease of native coronary artery without angina pectoris; K21.9 Gastro-esophageal reflux disease without esophagitis; I10 Essential (primary) hypertension; I73.9 Peripheral vascular disease, unspecified; F17.210 Nicotine dependence, cigarettes, uncomplicated
CPT/HCPCS: 99281

== ENCOUNTER 2021-12-11 11:54 | Outpatient (CLI) | payer MEDICARE, MEDICAID, SELFPAY ==
--- NOTE | ~2021-12-11 | PE_ITS ---
EXAMINATION: PET skull to mid thigh DATE: 12/11/2021 14:32 INDICATION: Solitary pulmonary nodule. TECHNIQUE: Blood glucose level was 91 mg/dL. 10.752 mCi of 18-fluorodeoxyglucose (18-FDG) was adminis tered i.v. Low dose computed tomography (CT) images were acquired from the base of the brain to the p roximal thighs for attenuation correction and anatomic localization. Automated exposure control was e mployed. Dose-length product (DLP) was 987 mGy-cm. Positron emission tomography (PET) images were acq uired in the same distribution. COMPARISON: Neck CT 08/26/2021, chest CT 05/02/2021 FINDINGS: Head/neck: In the superficial right parotid gland, there is a 10 mm mass with maximum SUV of 5.1. The re is increased activity in the oral cavity, oropharynx, major salivary glands, and glottis without a bnormal CT correlate, likely physiologic. There are changes of anterior fusion procedure in cervical spine. Chest: There is a 2.4 cm nodule in right lung upper lobe with maximum SUV of 11.8. There is a mildly enlarged right hilar lymph node with maximum SUV of 5.4. No pleural effusion. The heart size is frederick l. There are coronary artery calcifications. No pericardial effusion. Abdomen/pelvis/proximal thighs: The liver, gallbladder, spleen, pancreas, adrenal glands, and kidneys are normal. There are no dilated loops of bowel. There are stents in the common iliac arteries and l eft superficial femoral artery. There are no dilated loops of bowel. There are no pathologically enla rged lymph nodes. There is no free intraperitoneal fluid. There is increased activity in the erector spinae muscles and gluteus timoteo muscles without abnormal CT correlate, likely physiologic. IMPRESSION: 1. 2.4 cm nodule in right lung upper lobe with maximum SUV of 11.8, consistent with primary bronchoge mary carcinoma. 2. Mildly enlarged right hilar lymph node with increased activity, consistent with metastatic disease . 3. 10 mm superficial right parotid mass with increased activity. The differential diagnosis includes benign mixed tumor, Warthin tumor, reactive lymph node, and less likely primary malignancy or alyssa m etastatic disease. Reviewed, dictated and finalized at location A. IMPRESSION: 1. 2.4 cm nodule in right lung upper lobe with maximum SUV of 11.8, consistent with primary bronchogenic carcinoma. 2. Mildly enlarged right hilar lymph node with increased activity, consistent w ith metastatic disease. 3. 10 mm superficial right parotid mass with increased activity. The differenti al diagnosis includes benign mixed tumor, Warthin tumor, reactive lymph node, a nd less likely primary malignancy or alyssa metastatic disease.
[2021-12-11 12:27] LABS: Glucose Point of Care 91 mg/dl (65-105)
== END 2021-12-11 11:55 | disposition home or self-care (01) ==
LOC: ANHIMG 11:58
PROVIDERS: PCP Emergency Medicine; Visit Provider Internal Medicine Pulmonary Disease
DX: R91.1 Solitary pulmonary nodule (principal); R59.0 Localized enlarged lymph nodes; K11.8 Other diseases of salivary glands
CPT/HCPCS: 78815; A9552

== ENCOUNTER 2022-02-12 15:19 | Outpatient (CLI) | payer MEDICARE, MEDICAID, SELFPAY ==
--- NOTE | ~2022-02-12 | MR_ITS ---
EXAMINATION: MR brain/brain stem wo/w con DATE: 02/12/2022 17:07 INDICATION: Non-small cell cancer of right lung. TECHNIQUE: Magnetic resonance imaging (MRI) of the brain and brainstem was performed without and with 18 mL MultiHance intravenous contrast. COMPARISON: Head CT 05/18/2021 FINDINGS: There are scattered areas of nonspecific increased T2-weighted signal intensity in the cere bral white matter. There is no intracranial hemorrhage, acute infarction, or abnormal intracranial ma ss lesion. The ventricles are normal in size. The orbits are normal. There is mild mucosal thickening in the ethmoid sinuses. The mastoid air cells are normal. IMPRESSION: 1. No evidence of metastatic disease. 2. Moderate nonspecific cerebral white matter disease, which likely represents chronic small vessel i schemic disease. Reviewed, dictated and finalized at location B. IMPRESSION: 1. No evidence of metastatic disease. 2. Moderate nonspecific cerebral white matter disease, which likely represents chronic small vessel ischemic disease.
[2022-02-12 16:49] LABS: Estimated Glomerular Filt Rate > 60
== END 2022-02-12 15:20 | disposition home or self-care (01) ==
PROVIDERS: Visit Provider Internal Medicine Hematology & Oncology
DX: C34.91 Malignant neoplasm of unspecified part of right bronchus or lung (principal); R93.0 Abnormal findings on diagnostic imaging of skull and head, not elsewhere classified
CPT/HCPCS: 70553; A9577

== ENCOUNTER 2022-02-25 15:58 | Emergency (ER) | payer MEDICARE, MEDICAID, SELFPAY ==
[2022-02-25 16:00] VITALS: BP 141/92; PULSE 84; RESP 18; TEMP 36.1; O2SAT 100
--- NOTE | 2022-02-25 16:03 | ECG_ITS ---
Measurements Intervals [place] Rate: 89 P: 73 MN: 240 QRS: 17 QRSD: 105 T: -73 QT: 357 QTc: 437 Interpretive Statements SINUS RHYTHM WITH FIRST DEGREE AV BLOCK INFEROLATERAL ST AND T-WAVE CHANGES COMPARED TO ECG 10/13/2021 04:27:15 NO SIGNIFICANT CHANGES Electronically Signed On 02-25-2022 22:49:52 CDT by Emma Thompson M.D.
[2022-02-25 16:20] LABS: Basophils Percent Auto 0.7 % (0.2-1.2); Eosinophils Absolute Auto 0.2 K/mm3 (0-0.3); Eosinophils Percent Auto 3.2 % (0-4.4); Hematocrit 36.3 % (42.0-52.0); Hemoglobin 11.5 g/dL (14.0-18.0); Immature Granulocyte Absolute 0.01 K/mm3 (0.00-0.031); Immature Granulocyte Percent A 0.2 % (0-0.5); Lymphocytes Absolute Auto 1.73 K/mm3 (0.9-3.2); Lymphocytes Percent Auto 29.6 % (18.3-44.2); Mean Corpuscular HGB Conc 31.7 g/dl (32-36); Mean Corpuscular Hemoglobin 24.5 pg (26-34); Mean Corpuscular Volume 77.2 fl (80-100); Mean Platelet Volume 8.8 fl (7.4-10.4); Monocytes Absolute Auto 0.7 K/mm3 (0.1-0.6); Monocytes Percent Auto 11.1 % (2.6-8.5); Neutrophils Absolute Auto 3.2 K/mm3 (1.3-6.7); Neutrophils Percent Auto 55.2 % (45.5-73.1); Platelet Count Result 241 k/mm3 (150-375); Red Cell Distribution Width 15.5 % (11.5-14.5); White Blood Count 5.9 K/mm3 (4.5-10.0)
[2022-02-25 16:30] LABS: Alanine Aminotransferase 20 U/L (6-50); Albumin Level 4.2 g/dL (3.5-5.1); Alkaline Phosphatase 77 U/L (38-126); Anion Gap 7 mmol/L (8-16); Aspartate Amino Transferase 26 U/L (17-59); Bilirubin,Total 0.1 mg/dL (0.2-1.3); Blood Urea Nitrogen 8 mg/dL (9-20); Calcium 8.5 mg/dL (8.4-10.2); Carbon Dioxide 25 mmol/L (22-30); Chloride 105 mmol/L (98-107); Estimated CRCL calculation 78 ml/min; Estimated Glomerular Filt Rate > 60; Glucose 132 mg/dL (65-110); Potassium 3.1 mmol/L (3.4-5.0); Sodium 137 mmol/L (137-145)
--- NOTE | 2022-02-25 22:02 | ED.GENADULT ---
HPI - General Adult General Chief complaint: Dizziness Stated complaint: htn Time Seen by Provider: 02/25/22 21:46 History of Present Illness HPI narrative: 66-year-old male presented to the emergency department for evaluation of multiple complaints. Patient states he has had some increased sinus congestion and woozy feeling over the last few days. Patient also states that over the last few months that he has been having increased difficulty urinating and urinary retention. Patient does describe some burning with urination and lower abdominal fullness. Patient states that the urinary retention and urinary frequency has been worsening over the last few months. Patient states it is also acutely worsened over the last few days. Patient denies any associated nausea vomiting fevers. Patient was also recently diagnosed with small cell lung cancer. Patient does have follow-up scheduled with oncology tomorrow. Related Data Home Medications Medication Instructions Recorded Confirmed acyclovir 400 mg tablet 400 mg PO BID 01/09/20 11/06/21 amlodipine 10 mg tablet (Norvasc) 10 mg PO DAILY 01/09/20 11/06/21 aspirin 81 mg tablet,delayed 162 mg PO DAILY 01/09/20 11/06/21 release (Adult Aspirin Regimen) hydralazine 50 mg tablet 50 mg PO BID 01/09/20 11/06/21 hydroxyzine pamoate 25 mg capsule 25 mg PO BID PRN Anxiety 01/09/20 11/06/21 (Vistaril) ibuprofen 200 mg capsule 200 mg PO Q6H PRN Pain 01/09/20 11/06/21 oxycodone 15 mg tablet 15 mg PO Q4H PRN Pain 01/09/20 11/06/21 dicyclomine 10 mg capsule 10 mg PO BID 10/28/20 11/06/21 prasugrel 10 mg tablet 10 mg PO DAILY 02/02/21 11/06/21 doxazosin 2 mg tablet 2 mg PO DAILY 10/31/21 11/06/21 pantoprazole 40 mg tablet,delayed 40 mg PO DAILY 11/06/21 11/06/21 release rosuvastatin 10 mg tablet 10 mg PO DAILY 11/06/21 11/06/21 Allergies Allergy/AdvReac Type Severity Reaction Status Date / Time Penicillins Allergy Unknown Anaphylaxis Verified 11/06/21 11:51 Review of Systems Review of Systems: CONSTITUTIONAL: Sinus congestion and vertigo EYES: Denies visual changes, redness, or discharge. ENT: Denies rhinorrhea, congestion, sore throat, or otalgia. CARDIOVASCULAR: Denies chest pain, palpitations, or edema. RESPIRATORY: Denies cough or dyspnea. GASTROINTESTINAL: Denies abdominal pain, nausea, vomiting, or diarrhea. GENITOURINARY: See HPI SKIN: Denies rash or itching. MUSCULOSKELETAL: Denies back pain, joint pain, or myalgia. NEUROLOGIC: See HPI PSYCHIATRIC: Denies anxiety or depression. [facility] Past Medical History Medical History Contraindication to percutaneous coronary intervention (PCI) Coronary artery disease GERD (gastroesophageal reflux disease) Hypertension Peripheral vascular disease Tobacco abuse Surgical History Surgical History H/O cardiac catheterization H/O neck surgery History of esophagogastroduodenoscopy (EGD) Social History Social History Smoking packs per day: 1 Smoking cigarettes per day: 20.0 Smoking status: Current every day smoker Tobacco type: cigarettes Alcohol intake: current Alcohol use details: OCCASIONAL BEER Substance use: never Gender identity (if verbalized by the patient): Male Exam Narrative: APPEARANCE: Well appearing, no pain, no distress, well-nourished. HEAD: normocephalic, atraumatic. EYES: PERRLA/EOMI, conjunctivae clear. NOSE: Normal no drainage THROAT: Pharynx clear, no exudate. NECK: Supple. No adenopathy, no masses. RESPIRATORY: Airway patent, respirations nonlabored. Clear to auscultation bilaterally, no rales, rhonchi, wheezing. CARDIOVASCULAR: Regular rate and rhythm without murmurs rubs or gallops. ABDOMINAL: Soft, mild left lower quadrant tenderness to palpation. MUSCULOSKELETAL: Moves all extremities. Strength/ROM intact, No edema, No calf tendern
[2022-02-25 22:17] LABS: Appearance Urine Clear (Clear); Bilirubin Urine Negative (Negative); Blood Urine Negative (Negative); Color Urine Yellow (Yellow); Glucose Urine UA Negative (Negative); Ketones Urine Negative (Negative); Leukocyte Esterase Ur Negative LEU/UL (Negative); Nitrate Urine Negative (Negative); Protein Urine Negative (Negative); Urobilinogen Urine 0.2 mg/dL (<2.0)
[2022-02-25 22:19] LABS: Add Urine Microscopic? NO
[2022-02-25] MEDS: TAMSULOSIN HCL 0.4 MG CAPSULE PO (22:54)
[2022-02-25 22:55] VITALS: BP 162/84; PULSE 86; RESP 18; TEMP 37; O2SAT 99
[2022-02-25] MEDS: AZITHROMYCIN 250 MG TABLET 500 MG PO (22:55)
== END 2022-02-25 23:16 | disposition home or self-care (01) ==
PROVIDERS: Emergency Medicine; Emergency Provider Emergency Medicine; PCP Emergency Medicine
DX: J32.9 Chronic sinusitis, unspecified (principal); R33.9 Retention of urine, unspecified; C34.90 Malignant neoplasm of unspecified part of unspecified bronchus or lung; I25.10 Atherosclerotic heart disease of native coronary artery without angina pectoris; I10 Essential (primary) hypertension; I73.9 Peripheral vascular disease, unspecified; K21.9 Gastro-esophageal reflux disease without esophagitis; F17.210 Nicotine dependence, cigarettes, uncomplicated; I44.0 Atrioventricular block, first degree; R94.31 Abnormal electrocardiogram [ECG] [EKG]
CPT/HCPCS: 36415; 51702; 80053; 81003; 85025; 93005; 99283; A9270

== ENCOUNTER 2022-03-01 17:10 | Emergency (ER) | payer MEDICARE, MEDICAID, SELFPAY ==
[2022-03-01 17:17] VITALS: BP 127/70; PULSE 96; RESP 16; TEMP 36.4; O2SAT 100
[2022-03-01 17:35] LABS: Basophils Percent Auto 0.6 % (0.2-1.2); Eosinophils Absolute Auto 0.1 K/mm3 (0-0.3); Eosinophils Percent Auto 1.6 % (0-4.4); Hematocrit 33.3 % (42.0-52.0); Hemoglobin 10.8 g/dL (14.0-18.0); Immature Granulocyte Absolute 0.01 K/mm3 (0.00-0.031); Immature Granulocyte Percent A 0.2 % (0-0.5); Lymphocytes Absolute Auto 1.42 K/mm3 (0.9-3.2); Lymphocytes Percent Auto 22.8 % (18.3-44.2); Mean Corpuscular HGB Conc 32.4 g/dl (32-36); Mean Corpuscular Hemoglobin 24.7 pg (26-34); Mean Corpuscular Volume 76.2 fl (80-100); Mean Platelet Volume 9.2 fl (7.4-10.4); Monocytes Absolute Auto 0.7 K/mm3 (0.1-0.6); Monocytes Percent Auto 11.9 % (2.6-8.5); Neutrophils Absolute Auto 3.9 K/mm3 (1.3-6.7); Neutrophils Percent Auto 62.9 % (45.5-73.1); Platelet Count Result 228 k/mm3 (150-375); Red Blood Count 4.37 M/mm3 (4.6-6.20); Red Cell Distribution Width 15.4 % (11.5-14.5); White Blood Count 6.2 K/mm3 (4.5-10.0)
[2022-03-01 17:36] LABS: Appearance Urine Clear (Clear); Bilirubin Urine Negative (Negative); Blood Urine Negative (Negative); Color Urine Yellow (Yellow); Glucose Urine UA Negative (Negative); Ketones Urine Negative (Negative); Leukocyte Esterase Ur Negative LEU/UL (Negative); Nitrate Urine Negative (Negative); Protein Urine Negative (Negative); Urobilinogen Urine 0.2 mg/dL (<2.0)
[2022-03-01 17:39] LABS: RBC Urine 0-2 /hpf (0-2); WBC Urine 0-3 /hpf
[2022-03-01 17:42] LABS: Add Urine Microscopic? NO
[2022-03-01 17:46] LABS: Alanine Aminotransferase 21 U/L (6-50); Albumin Level 3.9 g/dL (3.5-5.1); Alkaline Phosphatase 73 U/L (38-126); Anion Gap 8 mmol/L (8-16); Aspartate Amino Transferase 27 U/L (17-59); Bilirubin,Total 0.2 mg/dL (0.2-1.3); Blood Urea Nitrogen 5 mg/dL (9-20); Calcium 8.5 mg/dL (8.4-10.2); Carbon Dioxide 25 mmol/L (22-30); Chloride 104 mmol/L (98-107); Estimated CRCL calculation 70 ml/min; Estimated Glomerular Filt Rate > 60; Glucose 100 mg/dL (65-110); Potassium 3.2 mmol/L (3.4-5.0); Sodium 137 mmol/L (137-145)
[2022-03-01 18:40] VITALS: BP 153/80; PULSE 96; PULSE 97; RESP 18; O2SAT 100
--- NOTE | 2022-03-01 18:58 | ED.WEAKNESS ---
HPI - Weakness General Chief complaint: Weakness <Lola Harris PA-C - Last Filed: 03/01/22 21:57> Stated complaint: WEAKNESS, FEELS DEHYDRATED <MCKAYLA Gracia Last Filed: 03/01/22 21:57> Time Seen by Provider: 03/01/22 18:35 <Lola Harris PA-C - Last Filed: 03/01/22 21:57> Source: patient <MCKAYLA Gracia Last Filed: 03/01/22 21:57> Mode of arrival: ambulatory <MCKAYLA Gracia Last Filed: 03/01/22 21:57> Limitations: no limitations <MCKAYLA Gracia Last Filed: 03/01/22 21:57> History of Present Illness HPI Narrative: This is a 66-year-old male that presents to the emergency department for possible dehydration. Reports sore throat and dry mouth. Ongoing since yesterday. Also reports chills. He is COVID vaccinated. He did not receive an influenza vaccine. Denies fever, cough, abdominal pain, vomiting, dysuria. <MCKAYLA Gracia Last Filed: 03/01/22 21:57> Related Data Home medications: Home Medications Medication Instructions Recorded Confirmed acyclovir 400 mg tablet 400 mg PO BID 01/09/20 11/06/21 amlodipine 10 mg tablet (Norvasc) 10 mg PO DAILY 01/09/20 11/06/21 aspirin 81 mg tablet,delayed 162 mg PO DAILY 01/09/20 11/06/21 release (Adult Aspirin Regimen) hydralazine 50 mg tablet 50 mg PO BID 01/09/20 11/06/21 hydroxyzine pamoate 25 mg capsule 25 mg PO BID PRN Anxiety 01/09/20 11/06/21 (Vistaril) ibuprofen 200 mg capsule 200 mg PO Q6H PRN Pain 01/09/20 11/06/21 oxycodone 15 mg tablet 15 mg PO Q4H PRN Pain 01/09/20 11/06/21 dicyclomine 10 mg capsule 10 mg PO BID 10/28/20 11/06/21 prasugrel 10 mg tablet 10 mg PO DAILY 02/02/21 11/06/21 doxazosin 2 mg tablet 2 mg PO DAILY 10/31/21 11/06/21 pantoprazole 40 mg tablet,delayed 40 mg PO DAILY 11/06/21 11/06/21 release rosuvastatin 10 mg tablet 10 mg PO DAILY 11/06/21 11/06/21 <Lola Harris PA-C - Last Filed: 03/01/22 21:57> Allergies/Adverse reactions: Allergies Allergy/AdvReac Type Severity Reaction Status Date / Time Penicillins Allergy Unknown Anaphylaxis Verified 03/01/22 18:42 <Lola Harris PA-C - Last Filed: 03/01/22 21:57> Review of Systems Review of Systems: CONSTITUTIONAL: Reports chills. Denies fever ENT: Reports sore throat RESPIRATORY: Denies cough or dyspnea. GASTROINTESTINAL: Denies abdominal pain, nausea, vomiting GENITOURINARY: Denies dysuria <Lola Harris PA-C - Last Filed: 03/01/22 21:57> All systems reviewed & are unremarkable except as noted in HPI and below <Lola Harris PA-C - Last Filed: 03/01/22 21:57> [facility] Past Medical History Medical History: Medical History Contraindication to percutaneous coronary intervention (PCI) Coronary artery disease GERD (gastroesophageal reflux disease) Hypertension Peripheral vascular disease Tobacco abuse <Lola Harris PA-C - Last Filed: 03/01/22 21:57> Surgical History Surgical History: Surgical History H/O cardiac catheterization H/O neck surgery History of esophagogastroduodenoscopy (EGD) <Lola Harris PA-C - Last Filed: 03/01/22 21:57> Social History Social History: Social History (Updated 03/01/22 @ 19:00 by Lola Harris PA-C) Smoking packs per day: 1 Smoking cigarettes per day: 20.0 Smoking status: Former smoker Tobacco type: cigarettes Alcohol intake: current Alcohol use details: OCCASIONAL BEER Substance use: never Gender identity (if verbalized by the patient): Male <Lola Harris PA-C - Last Filed: 03/01/22 21:57> Exam Narrative: GENERAL: Well-appearing, well-nourished, and in no acute distress. HEAD: Normocephalic, atraumatic. EYES: EOMI. ENT: Nares clear, no rhinorrhea or epistaxis. Mucous membranes moist. Oropharynx without tonsillar hypertrophy exudate or other lesions. Bilateral TMs pearly gra
[2022-03-01 19:01] LABS: Creatine Kinase 502 U/L (55-170)
--- NOTE | 2022-03-01 19:15 | PC.NURSE ---
Assumed care of pt at this time. Pt alert and upright on stretcher, updated on POC
[2022-03-01 19:17] VITALS: BP 187/88; PULSE 81; RESP 18; O2SAT 100
[2022-03-01] MEDS: ACETAMINOPHEN 500 MG TABLET 1000 MG PO (19:17)
[2022-03-01] MEDS: SODIUM CHLORIDE 0.9% IV 500 ML 999 ML IV CONT (19:17)
[2022-03-01 19:52] LABS: Influenza A QL RT-PCR Negative (Negative); Influenza B QL RT-PCR Negative (Negative); SARS-CoV-2 RNA PCR Negative
[2022-03-01 20:02] VITALS: BP 143/82; PULSE 83; RESP 15; O2SAT 100
--- NOTE | 2022-03-01 20:03 | PC.NURSE ---
Per [facility] arce, due to most recent vitals, hold PO hydralazine
[2022-03-01] MEDS: POTASSIUM CHLORIDE 20 MEQ TABLET 40 MEQ PO (20:58)
[2022-03-01 21:00] VITALS: BP 141/67; PULSE 78; RESP 16; O2SAT 100
== END 2022-03-01 22:07 | disposition home or self-care (01) ==
PROVIDERS: Emergency Medicine; Physician Assistant; Emergency Provider Emergency Medicine; PCP Emergency Medicine
DX: R53.1 Weakness (principal); Z20.822 Contact with and (suspected) exposure to COVID-19; I25.10 Atherosclerotic heart disease of native coronary artery without angina pectoris; K21.9 Gastro-esophageal reflux disease without esophagitis; I10 Essential (primary) hypertension; I73.9 Peripheral vascular disease, unspecified; Z87.891 Personal history of nicotine dependence; Z79.82 Long term (current) use of aspirin
CPT/HCPCS: 36415; 80053; 81003; 82550; 85025; 87081; 87502; 96360; 99283; A9270; C9803; J7040; U0003; U0005

== ENCOUNTER 2022-03-18 12:07 | Emergency (ER) | payer MEDICARE, MEDICAID, SELFPAY ==
--- NOTE | 2022-03-18 12:07 | ED.WOUNDLAC ---
HPI - Wound/Laceration General Chief Complaint: Upper Respiratory Infection Stated Complaint: INFECTED NOSE Time Seen by Provider: 03/18/22 12:07 Source: patient Mode of arrival: ambulatory Limitations: no limitations History of Present Illness HPI narrative: Mr. Brown is a 66-year-old male patient presenting to the clinic today with complaints of possible nose infection and sinus tenderness x2 weeks. He reports he has not been able to get into his provider and does not want to wait any longer. Related Data Home Medications Medication Instructions Recorded Confirmed acyclovir 400 mg tablet 400 mg PO BID 01/09/20 11/06/21 amlodipine 10 mg tablet (Norvasc) 10 mg PO DAILY 01/09/20 11/06/21 hydralazine 50 mg tablet 50 mg PO BID 01/09/20 11/06/21 hydroxyzine pamoate 25 mg capsule 25 mg PO BID PRN Anxiety 01/09/20 11/06/21 (Vistaril) ibuprofen 200 mg capsule 200 mg PO Q6H PRN Pain 01/09/20 11/06/21 oxycodone 15 mg tablet 15 mg PO Q4H PRN Pain 01/09/20 11/06/21 dicyclomine 10 mg capsule 10 mg PO BID 10/28/20 11/06/21 prasugrel 10 mg tablet 10 mg PO DAILY 02/02/21 11/06/21 doxazosin 2 mg tablet 2 mg PO DAILY 10/31/21 11/06/21 pantoprazole 40 mg tablet,delayed 40 mg PO DAILY 11/06/21 11/06/21 release rosuvastatin 10 mg tablet 10 mg PO DAILY 11/06/21 11/06/21 Allergies Allergy/AdvReac Type Severity Reaction Status Date / Time Penicillins Allergy Unknown Anaphylaxis Verified 03/01/22 18:42 Review of Systems Review of Systems: Pertinent positives per HPI. Patient denies any fever, chills, rash, headache, visual changes, dizziness, cough, runny nose, sore throat, shortness of breath, chest pain, palpitations, nausea, vomiting, diarrhea, constipation, abdominal pain, or any urinary issues. [facility] Past Medical History Medical History Contraindication to percutaneous coronary intervention (PCI) Coronary artery disease GERD (gastroesophageal reflux disease) Hypertension Peripheral vascular disease Tobacco abuse Surgical History Surgical History H/O cardiac catheterization H/O neck surgery History of esophagogastroduodenoscopy (EGD) Social History Social History Smoking packs per day: 1 Smoking cigarettes per day: 20.0 Smoking status: Former smoker Tobacco type: cigarettes Alcohol intake: current Alcohol use details: OCCASIONAL BEER Substance use: never Gender identity (if verbalized by the patient): Male Comments At the time of my signature, I reviewed and agree with the nursing past medical, surgical, social, and family history. There is no relevant family history pertinent to the patient complaint. Exam Narrative: General: Well-developed, well nourished, in no apparent distress Head: Normocephalic, atraumatic Eyes: Pupils equally round and reactive to light bilaterally, EOM intact, sclera and conjunctive clear, no discharge, lids normal Ears: TMs intact and clear, ear canals clear, no drainage, grossly hearing normal. Nose: Nares patent, clear nasal discharge, severe inflammation/ulceration to the left anterior turbinates and left maxillary sinus tenderness. Mouth: Oropharynx without lesions or masses, good dentition, MMM. Neck: Supple, trachea midline, no enlargement of anterior or posterior cervical nodes, no thyroid masses or goiter palpable. Cardio: Regular rate and rhythm, s1 and s2 normal, no murmur appreciated. Resp: Clear to auscultation bilaterally anteriorly and posteriorly, no rhonchi, rales, wheezing or rubs Course Course Emergency Course: Portions of this record may have been created with voice recognition software. Level of Care: Express Care Visit Vital Signs Vital signs: Vital signs reviewed MDM - Wound/Laceration MDM Narrative Medical decision making narrative: At the time of vis
[2022-03-18 12:21] VITALS: BP 151/77; PULSE 82; RESP 16; TEMP 36.6; O2SAT 100
== END 2022-03-18 12:30 | disposition home or self-care (01) ==
PROVIDERS: Emergency Provider Nurse Practitioner Family; PCP Emergency Medicine
DX: J32.9 Chronic sinusitis, unspecified (principal); I25.10 Atherosclerotic heart disease of native coronary artery without angina pectoris; K21.9 Gastro-esophageal reflux disease without esophagitis; I10 Essential (primary) hypertension; I73.9 Peripheral vascular disease, unspecified
CPT/HCPCS: 99213; G0463

== ENCOUNTER 2022-03-27 06:59 | Emergency (ER) | payer MEDICARE, MEDICAID, SELFPAY ==
--- NOTE | ~2022-03-27 | XR_ITS ---
EXAMINATION: XR chest 1V portable DATE: 03/27/2022 07:53 INDICATION: Cough TECHNIQUE: frontal view of the chest was obtained. COMPARISON: Chest radiograph dated 07/20/[address] dated 05/02/2021 FINDINGS: The lungs remain clear with no focal airspace opacities, pulmonary edema, pleural effusion or pneumot horax. The cardiomediastinal silhouette is normal. Anterior plate-screw fixation for lower cervical a nterior spinal fusion. Surgical clip at the left neck. IMPRESSION: 1. No acute cardiopulmonary disease. Reviewed, dictated and finalized at location A.
[2022-03-27 07:10] VITALS: BP 138/72; PULSE 71; RESP 18; TEMP 35.9; O2SAT 100
[2022-03-27 07:23] VITALS: TEMP 36.4
--- NOTE | 2022-03-27 07:25 | ED.WOUNDLAC ---
HPI - Wound/Laceration General Chief Complaint: Wound/Laceration Stated Complaint: right lobectomy Time Seen by Provider: 03/27/22 07:18 Source: RN notes reviewed History of Present Illness HPI narrative: Patient presents emergency department from home for surgical wound drainage. Patient states he had a lobectomy done at [facility] by Dr. Luis Cazares on March 24. He states following the surgery he had a chest tube and it was pulled yesterday and he was discharged states this morning he awoke and had a large amount of drainage out of the wound that was yellow in color and came to the emergency department for further evaluation he denies any other symptoms with the wound he denies any fevers or chills chest pain shortness of breath Related Data Home Medications Medication Instructions Recorded Confirmed acyclovir 400 mg tablet 400 mg PO BID 01/09/20 11/06/21 amlodipine 10 mg tablet (Norvasc) 10 mg PO DAILY 01/09/20 11/06/21 hydralazine 50 mg tablet 50 mg PO BID 01/09/20 11/06/21 hydroxyzine pamoate 25 mg capsule 25 mg PO BID PRN Anxiety 01/09/20 11/06/21 (Vistaril) ibuprofen 200 mg capsule 200 mg PO Q6H PRN Pain 01/09/20 11/06/21 oxycodone 15 mg tablet 15 mg PO Q4H PRN Pain 01/09/20 11/06/21 dicyclomine 10 mg capsule 10 mg PO BID 10/28/20 11/06/21 prasugrel 10 mg tablet 10 mg PO DAILY 02/02/21 11/06/21 doxazosin 2 mg tablet 2 mg PO DAILY 10/31/21 11/06/21 pantoprazole 40 mg tablet,delayed 40 mg PO DAILY 11/06/21 11/06/21 release rosuvastatin 10 mg tablet 10 mg PO DAILY 11/06/21 11/06/21 aspirin 81 mg tablet 81 mg PO DAILY 03/27/22 03/27/22 Allergies Allergy/AdvReac Type Severity Reaction Status Date / Time Penicillins Allergy Unknown Anaphylaxis Verified 03/01/22 18:42 Review of Systems Review of Systems: Gen.: Denies fevers or chills ENT: Denies congestion Respiratory: Denies shortness of breath or cough CV: Denies chest pain or palpitations GI: Denies abdominal pain nausea, emesis Musculoskeletal: Denies back pain or muscle pain Neuro: Denies headache or weakness Skin: HPI Except as documented, all other systems reviewed and negative [facility] Past Medical History Medical History Contraindication to percutaneous coronary intervention (PCI) Coronary artery disease GERD (gastroesophageal reflux disease) Hypertension Peripheral vascular disease Tobacco abuse Surgical History Surgical History H/O cardiac catheterization H/O neck surgery History of esophagogastroduodenoscopy (EGD) Social History Social History Smoking packs per day: 1 Smoking cigarettes per day: 20.0 Smoking status: Former smoker Tobacco type: cigarettes Alcohol intake: current Alcohol use details: OCCASIONAL BEER Substance use: never Gender identity (if verbalized by the patient): Male Exam Narrative: APPEARANCE: No acute distress, nontoxic, resting in bed EYES: EOMI HEENT: Normocephalic, atraumatic, OMM RESPIRATORY: No respiratory distress Clear to auscultation bilaterally with no rhonchi wheezing or rales. CARDIOVASCULAR: Regular rate and rhythm without murmurs rubs or gallops. ABDOMINAL: Soft, nontender, nondistended, no rebound or guarding MUSCULOSKELETAl: Moves all extremities. No clubbing, cyanosis or edema. NEURO: Awake and alert. Following commands, speech normal, no focal deficits SKIN:: Warm, dry. No rashes lesions or abrasions right chest has dressing in tact superiorly just below the axilla as well as more on the mid axillary line both clean dry and intact there is a dressing over the lower mid axillary line that is wet with serous fluid dressing removed and there is an intact wound draining serous fluid no surrounding erythema, no purulent drainage suture intact PSYCHIATRIC: Normal affect/mood, Course Course Emergency Co
[2022-03-27 08:04] VITALS: BP 137/60; PULSE 64; RESP 18; O2SAT 98
== END 2022-03-27 08:38 | disposition home or self-care (01) ==
PROVIDERS: Emergency Provider Emergency Medicine; PCP Emergency Medicine
DX: Z48.01 Encounter for change or removal of surgical wound dressing (principal); Z90.2 Acquired absence of lung [part of]; I25.10 Atherosclerotic heart disease of native coronary artery without angina pectoris; I10 Essential (primary) hypertension; I73.9 Peripheral vascular disease, unspecified; K21.9 Gastro-esophageal reflux disease without esophagitis; Z87.891 Personal history of nicotine dependence; Z79.82 Long term (current) use of aspirin
CPT/HCPCS: 71045; 99283

== ENCOUNTER 2022-04-07 15:37 | Emergency (ER) | payer MEDICARE, MEDICAID, SELFPAY ==
--- NOTE | 2022-04-07 15:40 | ED.SKABFB ---
HPI - Skin/Abscess/Foreign Bdy General Chief complaint: Wound/Laceration Stated complaint: possible infection s/p surgery Time Seen by Provider: 04/07/22 15:45 Source: patient and RN notes reviewed History of Present Illness HPI narrative: Patient is 66-year-old male who presents the urgent care with complaints of a possible infection to a surgical site on the right lateral chest. Patient states that he had a lung resection on March 24 and one of the surgical sites seems to be a little bit more tender and red. Patient states he talked to his surgeon this morning and they told him to go get it evaluated at the urgent care. Patient denies of any recorded fevers but states he has felt a little chilled today. Denies any nausea or vomiting. Denies any shortness of breath or chest pain. Patient has been using an antibiotic ointment and covering the wound. No other acute complaints. No acute distress noted. Patient aware of the plan of care. Some parts of this dictation were generated by voice recognition software and may contain typographical and/or grammatical inaccuracies. Related Data Home Medications Medication Instructions Recorded Confirmed acyclovir 400 mg tablet 400 mg PO BID 01/09/20 11/06/21 amlodipine 10 mg tablet (Norvasc) 10 mg PO DAILY 01/09/20 11/06/21 hydralazine 50 mg tablet 50 mg PO BID 01/09/20 11/06/21 hydroxyzine pamoate 25 mg capsule 25 mg PO BID PRN Anxiety 01/09/20 11/06/21 (Vistaril) ibuprofen 200 mg capsule 200 mg PO Q6H PRN Pain 01/09/20 11/06/21 oxycodone 15 mg tablet 15 mg PO Q4H PRN Pain 01/09/20 11/06/21 dicyclomine 10 mg capsule 10 mg PO BID 10/28/20 11/06/21 prasugrel 10 mg tablet 10 mg PO DAILY 02/02/21 11/06/21 doxazosin 2 mg tablet 2 mg PO DAILY 10/31/21 11/06/21 pantoprazole 40 mg tablet,delayed 40 mg PO DAILY 11/06/21 11/06/21 release rosuvastatin 10 mg tablet 10 mg PO DAILY 11/06/21 11/06/21 aspirin 81 mg tablet 81 mg PO DAILY 03/27/22 03/27/22 Allergies Allergy/AdvReac Type Severity Reaction Status Date / Time Penicillins Allergy Unknown Anaphylaxis Verified 03/01/22 18:42 Review of Systems Review of Systems: CONSTITUTIONAL: Denies fever, chills, or sweats. EYES: Denies visual changes, redness, or discharge. ENT: Denies rhinorrhea, congestion, sore throat, or otalgia. CARDIOVASCULAR: Denies chest pain, palpitations, or edema. RESPIRATORY: Denies cough or dyspnea. GASTROINTESTINAL: Denies abdominal pain, nausea, vomiting, or diarrhea. GENITOURINARY: Denies dysuria or hematuria. SKIN: Reports of a possible infection to the left chest wound MUSCULOSKELETAL: Denies back pain, joint pain, or myalgia. NEUROLOGIC: Denies headache, numbness, or weakness. All other systems reviewed are negative, except as documented in HPI. [facility] Past Medical History Medical History Contraindication to percutaneous coronary intervention (PCI) Coronary artery disease GERD (gastroesophageal reflux disease) Hypertension Peripheral vascular disease Tobacco abuse Surgical History Surgical History H/O cardiac catheterization H/O neck surgery History of esophagogastroduodenoscopy (EGD) Social History Social History Smoking packs per day: 1 Smoking cigarettes per day: 20.0 Smoking status: Former smoker Tobacco type: cigarettes Alcohol intake: current Alcohol use details: OCCASIONAL BEER Substance use: never Gender identity (if verbalized by the patient): Male Comments At the time of my signature, I reviewed and agree with the nursing past medical, surgical, social, and family history. There is no relevant family history pertinent to the patient complaint. Exam Narrative: GENERAL: This is a well-nourished, well-developed patient, in no apparent distress. HEAD: normocephalic, atraumatic. EYES: PERRL. Sclera clear/
[2022-04-07 15:44] VITALS: BP 139/72; PULSE 70; RESP 16; TEMP 36; O2SAT 99
== END 2022-04-07 16:11 | disposition home or self-care (01) ==
PROVIDERS: Emergency Provider Nurse Practitioner Family; PCP Emergency Medicine
DX: Z48.01 Encounter for change or removal of surgical wound dressing (principal); Z87.891 Personal history of nicotine dependence; I25.10 Atherosclerotic heart disease of native coronary artery without angina pectoris; K21.9 Gastro-esophageal reflux disease without esophagitis; I10 Essential (primary) hypertension; I73.9 Peripheral vascular disease, unspecified; Z79.82 Long term (current) use of aspirin
CPT/HCPCS: 99213; G0463

== ENCOUNTER 2022-04-30 06:57 | Emergency (ER) | payer MEDICARE, MEDICAID, SELFPAY ==
--- NOTE | ~2022-04-30 | CT_ITS ---
EXAMINATION: CT abdomen pelvis wo con DATE: 04/30/2022 10:10 INDICATION: Right sided abdominal pain TECHNIQUE: Computed tomography (CT) of the abdomen and pelvis was performed without intravenous contr ast. Automated exposure control and iterative reconstruction technique were employed. Exam dose: 376 .65 mGy-cm total exam DLP. COMPARISON: 12/11/2021 PET/CT scan 11/30/2019 PET/CT scan 03/03/2017 CT abdomen pelvis FINDINGS: There is patchy infiltrate and/atelectasis in the lower lung zones, primarily in the lower lobes. There is mild right pleural effusion. Heart size is within normal range. No pericardial effusion. Approximately 7.7 mm lateral segment left hepatic hypoattenuating lesion, possibly a cyst. Indeterminate approximately 6 mm hypoattenuating lesion of the hepatic dome. The gallbladder is unremarkable. No pericholecystic fluid or fat stranding or gallbladder wall thicke clovis. No bile duct or pancreatic duct dilatation. No pancreatic mass lesion or calcification. Normal splenic size. Normal morphology of the adrenal glands. Prominent bilateral renal artery calcifications. Probable 7 mm hyperdense cyst along the medial upper pole the right kidney, with attenuation up to 82 Hounsfield units. No renal mass lesion is noted otherwise. Punctate calculus of the lateral aspect of lower pole of the right kidney. No ureteral calculus or hydroureteronephrosis is noted on either side. There is extensive atherosclerotic calcification of the abdominal aorta. Aortobiiliac arterial stents are noted. Left femoral artery stent. No intraperitoneal or retroperitoneal or pelvic mass lesion or adenopathy or ascites. The urinary bladder and prostate gland are unremarkable. No evidence of appendicitis. Mild colonic diverticulosis; no CT evidence of diverticulitis. No bowel obstruction or intraperitoneal free air. Small fat-containing right inguinal hernia. There is degenerative change at the apophyseal joints of the lumbar spine with associated grade 1 ant erolisthesis at L4-5. There is severe degenerative disc disease at L5-S1. Bilateral hip osteoarthritis. No suspicious osteolytic or osteoblastic lesions are noted. IMPRESSION: Mild right pleural effusion Bilateral basilar infiltrate and/atelectasis 7.7 mm left and 6 mm right hepatic dome hypoattenuating lesions, possibly cysts, but too small to def initively characterize No evidence of appendicitis. Diverticulosis of colon; no CT evidence of diverticulitis Small fat-containing right inguinal hernia Punctate nonobstructing lower pole right renal calculus Probable 7 mm hyperdense right renal cyst Reviewed, dictated and finalized at Location [facility]. Reviewed, dictated and finalized at location B. IMPRESSION: Mild right pleural effusion Bilateral basilar infiltrate and/atelectasis 7.7 mm left and 6 mm right hepatic dome hypoattenuating lesions, possibly cysts , but too small to definitively characterize No evidence of appendicitis. Diverticulosis of colon; no CT evidence of diverticulitis Small fat-containing right inguinal hernia Punctate nonobstructing lower pole right renal calculus Probable 7 mm hyperdense right renal cyst
--- NOTE | ~2022-04-30 | XR_ITS ---
XR chest 2V DATE: 04/30/2022 08:47 INDICATION: Cough. History of lung surgery/tumor removal, 03/24/2022 TECHNIQUE: PA and lateral views COMPARISON: 03/27/2022 portable AP chest at 0732 hours FINDINGS: Status post anterior lower cervical spine surgical fusion. Normal heart size. Mild aortic unfolding. No hilar or mediastinal enlargement is evident. Bilateral apical capping, right greater than left. There is mild elevation of the right leaf of the d iaphragm. There is mild bibasilar infiltrate or atelectasis, right greater than left and small right pleural effusion. No pulmonary vascular congestion or pneumothorax. IMPRESSION: Mild bibasilar infiltrate or atelectasis, right greater than left and small right pleural effusion Reviewed, dictated and finalized at location B. IMPRESSION: Mild bibasilar infiltrate or atelectasis, right greater than left a nd small right pleural effusion
--- NOTE | ~2022-04-30 | CT_ITS ---
EXAMINATION: CTA chest PE protocol DATE: 04/30/2022 11:44 INDICATION: Chest pain. Recent Covid infection (04/14/2022) TECHNIQUE: Computed tomography angiography (CTA) of the chest was performed with 100 mL Omnipaque-350 intravenous contrast timed to evaluate the pulmonary arteries. Coronal maximum intensity projection 3D-reconstructions were created by the technologist. Automated exposure control and iterative reconst ruction technique were employed. Exam dose: 389.20 mGy-cm total exam DLP. COMPARISON: 04/30/2022 2 view chest FINDINGS: There is diagnostic contrast enhancement of the pulmonary arteries and no evidence of pulmo nary embolism. There is right hilar and subcarinal lymphadenopathy. Up to approximately 7.4 x 10.2 mm prevascular lymph nodes. 0.5 x 15 mm left superior mediastinal lymph node. Normal heart size. No pericardial effusion. No thoracic aortic aneurysm or dissection. Mild right pleural effusion. There is bilateral predominantly lower lobe infiltrates and/or atelectasis. There is some peripheral septal soft tissue thickening of the left upper lobe and lingula. Status post anterior C6-C7 surgical fusion. No suspicious osteolytic or osteoblastic lesions are noted. IMPRESSION: No evidence of pulmonary embolism Partial right lung resection Right hilar, subcarinal, prevascular and superior mediastinal lymphadenopathy Mild right pleural effusion Peripheral septal soft tissue thickening of the left upper lobe Patchy infiltrate and/atelectasis, bilateral lower lobes Reviewed, dictated and finalized at Location [facility]. Reviewed, dictated and finalized at location B.
[2022-04-30 07:09] VITALS: BP 159/96; PULSE 67; RESP 18; TEMP 36.5; O2SAT 99
--- NOTE | 2022-04-30 07:22 | ED.SKABFB ---
HPI - Skin/Abscess/Foreign Bdy General Chief complaint: Skin/Abscess/Foreign Body Stated complaint: post op infection? Time Seen by Provider: 04/30/22 07:22 Source: patient Mode of arrival: ambulatory Limitations: no limitations History of Present Illness HPI narrative: ?The patient is a 66-year-old male with a history of small cell lung cancer with recent lobectomy 03/[address] Luis Cazares presenting to the emergency department for evaluation of burning pain at the site of lobectomy incision sites over the past several days. Patient denies any rash, redness, drainage from the wounds. He states that the wounds have healed nicely. Patient reports burning type pain in a bandlike pattern across his abdomen. He reports right upper abdominal pain. Patient reports mild cough without shortness of breath. He denies any frontal chest pain. She denies fever, chills, nausea or vomiting. Patient states that he is worried he has a bacterial infection. He denies any current antibiotic use. His last follow-up with his CT surgeon was unremarkable. Related Data Home Medications Medication Instructions Recorded Confirmed acyclovir 400 mg tablet 400 mg PO BID 01/09/20 11/06/21 amlodipine 10 mg tablet (Norvasc) 10 mg PO DAILY 01/09/20 11/06/21 hydralazine 50 mg tablet 50 mg PO BID 01/09/20 11/06/21 hydroxyzine pamoate 25 mg capsule 25 mg PO BID PRN Anxiety 01/09/20 11/06/21 (Vistaril) ibuprofen 200 mg capsule 200 mg PO Q6H PRN Pain 01/09/20 11/06/21 oxycodone 15 mg tablet 15 mg PO Q4H PRN Pain 01/09/20 11/06/21 dicyclomine 10 mg capsule 10 mg PO BID 10/28/20 11/06/21 prasugrel 10 mg tablet 10 mg PO DAILY 02/02/21 11/06/21 doxazosin 2 mg tablet 2 mg PO DAILY 10/31/21 11/06/21 pantoprazole 40 mg tablet,delayed 40 mg PO DAILY 11/06/21 11/06/21 release rosuvastatin 10 mg tablet 10 mg PO DAILY 11/06/21 11/06/21 aspirin 81 mg tablet 81 mg PO DAILY 07/29/22 07/29/22 Allergies Allergy/AdvReac Type Severity Reaction Status Date / Time Penicillins Allergy Unknown Anaphylaxis Verified 04/30/22 07:14 Review of Systems Review of Systems: CONSTITUTIONAL: Denies fever, chills, or sweats. CARDIOVASCULAR: Denies chest pain, palpitations, or edema. RESPIRATORY: Denies cough or dyspnea. GASTROINTESTINAL: Reports upper abdominal pain, nausea, vomiting GENITOURINARY: Denies dysuria or hematuria. SKIN: Denies rash, reports pain overlying right incision sites, right chest wall MUSCULOSKELETAL: Denies back pain, joint pain, or myalgia. NEUROLOGIC: Denies headache, numbness, or weakness. [facility] Past Medical History Medical History (Updated 04/30/22 @ 11:17 by Marifer Hennessy MD) Acute urinary retention Contraindication to percutaneous coronary intervention (PCI) Coronary artery disease Emphysema lung GERD (gastroesophageal reflux disease) Hypertension Lung nodule Peripheral vascular disease Sinusitis Tobacco abuse Surgical History Surgical History (Updated 04/30/22 @ 08:05 by Marifer Hennessy MD) H/O cardiac catheterization H/O neck surgery History of esophagogastroduodenoscopy (EGD) S/P partial lobectomy of lung Social History Social History Smoking packs per day: 1 Smoking cigarettes per day: 20.0 Smoking status: Former smoker Tobacco type: cigarettes Alcohol intake: current Alcohol use details: OCCASIONAL BEER Substance use: never Gender identity (if verbalized by the patient): Male Exam Narrative: GENERAL: Awake, alert, conversant HEAD: Normocephalic, atraumatic. EYES: PERRLA and EOMI. ENT: Nares clear, no rhinorrhea or epistaxis. Mucous membranes moist. NECK: Supple. CHEST: No respiratory distress, breathing even and non labored HEART: Regular rate, sinus rhythm ABDOMEN:Non distended, mildly tender in the paramedical area without rebound, rigidity or guarding EXTREMITIES: Normal range of motion. No edema. SKIN: Warm, dry, no rash. Incision sites ov
[2022-04-30 08:47] LABS: Basophils Percent Auto 0.3 % (0.2-1.2); Eosinophils Absolute Auto 0.1 K/mm3 (0-0.3); Eosinophils Percent Auto 0.9 % (0-4.4); Hematocrit 40.3 % (42.0-52.0); Hemoglobin 12.9 g/dL (14.0-18.0); Immature Granulocyte Absolute 0.03 K/mm3 (0.00-0.031); Immature Granulocyte Percent A 0.5 % (0-0.5); Immature Platelet Fraction Pct 2.2 % (0.9-11.2); Lymphocytes Absolute Auto 0.95 K/mm3 (0.9-3.2); Lymphocytes Percent Auto 16.6 % (18.3-44.2); Mean Corpuscular Hemoglobin 25.9 pg (26-34); Mean Corpuscular Volume 80.9 fl (80-100); Mean Platelet Volume 9.1 fl (7.4-10.4); Monocytes Absolute Auto 0.5 K/mm3 (0.1-0.6); Monocytes Percent Auto 9.2 % (2.6-8.5); Neutrophils Absolute Auto 4.2 K/mm3 (1.3-6.7); Neutrophils Percent Auto 72.5 % (45.5-73.1); Platelet Count Result 222 k/mm3 (150-375); Red Blood Count 4.98 M/mm3 (4.6-6.20); Red Cell Distribution Width 18.5 % (11.5-14.5); White Blood Count 5.7 K/mm3 (4.5-10.0)
[2022-04-30] MEDS: MORPHINE SULFATE (*CRX) 4 MG/ML INJ IV PUSH (09:07)
[2022-04-30] MEDS: SODIUM CHLORIDE 0.9% IV 1,000 ML 999 ML IV CONT (09:07)
[2022-04-30 09:33] LABS: Alanine Aminotransferase 22 U/L (6-50); Albumin Level 3.7 g/dL (3.5-5.1); Alkaline Phosphatase 79 U/L (38-126); Anion Gap 4 mmol/L (8-16); Aspartate Amino Transferase 23 U/L (17-59); Bilirubin,Total 0.4 mg/dL (0.2-1.3); Blood Urea Nitrogen 6 mg/dL (9-20); Calcium 8.5 mg/dL (8.4-10.2); Carbon Dioxide 28 mmol/L (22-30); Chloride 104 mmol/L (98-107); Estimated CRCL calculation 78 ml/min; Estimated Glomerular Filt Rate > 60; Glucose 112 mg/dL (65-110); Lipase 29 U/L (23-300); Potassium 3.5 mmol/L (3.4-5.0); Sodium 136 mmol/L (137-145)
[2022-04-30 09:44] LABS: Troponin I < 0.012 ng/mL (0.000-0.034)
--- NOTE | 2022-04-30 09:47 | ECG_ITS ---
Measurements Intervals [place] Rate: 55 P: 29 KS: 255 QRS: 6 QRSD: 103 T: -69 QT: 408 QTc: 391 Interpretive Statements SINUS BRADYCARDIA WITH FIRST DEGREE AV BLOCK ST-T WAVE ABNORMALITY IN INF/LAT LEADS- CONSIDER ISCHEMIA BASELINE ARTIFACT- I, II, AVR ABNORMAL ECG COMPARED TO ECG 02/25/2022 16:06:57 SINUS BRADYCARDIA NOW PRESENT Electronically Signed On 04-30-2022 11:56:33 CDT by Tay Paz D.O.
[2022-04-30 10:33] VITALS: BP 182/87; PULSE 64; RESP 18; O2SAT 100
[2022-04-30 12:30] VITALS: BP 180/76; PULSE 68; RESP 19; O2SAT 99
== END 2022-04-30 12:32 | disposition home or self-care (01) ==
PROVIDERS: Emergency Provider Emergency Medicine; PCP Emergency Medicine
DX: J90 Pleural effusion, not elsewhere classified (principal); Z86.16 Personal history of COVID-19; C34.91 Malignant neoplasm of unspecified part of right bronchus or lung; I25.10 Atherosclerotic heart disease of native coronary artery without angina pectoris; J43.9 Emphysema, unspecified; K21.9 Gastro-esophageal reflux disease without esophagitis; I10 Essential (primary) hypertension; I73.9 Peripheral vascular disease, unspecified; Z87.891 Personal history of nicotine dependence; K76.9 Liver disease, unspecified; N20.0 Calculus of kidney; Z90.2 Acquired absence of lung [part of]; R00.1 Bradycardia, unspecified; R94.31 Abnormal electrocardiogram [ECG] [EKG]
CPT/HCPCS: 36415; 71046; 71275; 74176; 80053; 83690; 84484; 85025; 85055; 93005; 96361; 96374; 99284; J2270; J7030; Q9967

== ENCOUNTER 2022-06-22 08:22 | Outpatient (CLI) | payer MEDICARE, MEDICAID, SELFPAY ==
--- NOTE | ~2022-06-22 | CT_ITS ---
EXAMINATION:CT diagnostic chest wo con DATE: 06/22/2022 08:47 INDICATION: Small cell lung cancer. TECHNIQUE: Computed tomography (CT) of the chest was performed without intravenous contrast. Automate d exposure control and iterative reconstruction technique were employed. The dose-length product (DLP ) was 226.38 mGy-cm. COMPARISON: Chest CT 04/30/2022, 03/08/20 FINDINGS: There are changes of right upper lobectomy. There is mild atelectasis in the lungs. There i s smooth septal thickening in the lungs, right worse than left, consistent mild pulmonary edema. Ther e is a small right pleural effusion. The heart size is normal. There are coronary artery calcificatio ns. No pericardial effusion. There is confluent right hilar and right paratracheal lymphadenopathy me asuring 4.8 x 2.6 cm. Enlarged lymph nodes in this area were not yet confluent on the prior exam. 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 There are cysts in the liver measuring up to 9 mm. There are changes of anterior f usion procedure in cervical spine. IMPRESSION: 1. Worsened right hilar and right paratracheal lymphadenopathy, consistent with metastatic disease. 2. Mild pulmonary edema. 3. Improved small right pleural effusion. Reviewed, dictated and finalized at location A.
== END 2022-06-22 08:23 | disposition home or self-care (01) ==
PROVIDERS: PCP Emergency Medicine; Visit Provider Internal Medicine Hematology & Oncology
DX: C34.91 Malignant neoplasm of unspecified part of right bronchus or lung (principal); J81.1 Chronic pulmonary edema; J90 Pleural effusion, not elsewhere classified
CPT/HCPCS: 71250

== ENCOUNTER 2022-07-06 09:51 | Outpatient (CLI) | payer MEDICARE, MEDICAID, SELFPAY ==
--- NOTE | 2022-07-06 11:59 | WPDPFTINT ---
PFT Procedure Performed PFT Procedure Performed Spirometry with Pre/Post Bronchodilator Plethysmography (Lung Vol) Diffusing Cap (DLCO) Flow Vol Loop Spirometry w/o Bronchodil PFT Interpretation Lung volumes were measured with the body plethysmography method. Lung volumes are unremarkable. Spirometry showed normal expiratory flow rates and a normal FEV1 to FVC ratio 70%. Following administration of a bronchodilator there was no significant increase in expiratory flow rates. Lung diffusion capacity is moderately reduced at 49% predicted. The flow volume loop is unremarkable. Impression: Spirometry, lung volumes within the normal range. Moderately reduced lung diffusion capacity.
== END 2022-07-06 09:52 | disposition home or self-care (01) ==
LOC: ANHPFT 09:52
PROVIDERS: PCP Emergency Medicine; Visit Provider Internal Medicine Pulmonary Disease
DX: J43.9 Emphysema, unspecified (principal)
CPT/HCPCS: 94060; 94726; 94729

== ENCOUNTER 2022-08-25 09:17 | Outpatient (CLI) | payer MEDICARE, MEDICAID, SELFPAY ==
[2022-08-18 12:25] VITALS: BMI 25.7
--- NOTE | 2022-08-18 12:25 | PC.NURSE ---
Pre Radiology instructions Report to the outpatient janessa tapiaseneca on date _08/25/22 @ 0930____ Procedure Time: _1130___ YOU MAY BE MONITORED AT HOSPITAL FOR UP TO 4 HOURS AFTER YOUR PROCEDURE. A visitors will be allowed to accompany the patient into the hospital. ?The visitor will be instructed to remain with patient at all times or leave the building due to restrictions.? We will allow the visitor to come back to the postoperative area when patient is ready.? NO children visitors allowed at this time. You and your visitor will be asked to self-screen and do not enter if you have any COVID symptoms. A mask is REQUIRED within the hospital. Patients are to have no food or drink 6 hours prior to procedure time (0530 AM) Driving will be restricted after the procedure, you must have a person to drive you home. Labs will be drawn in preop area and once reviewed, you will be taken to radiology area for procedure. When the procedure is completed, you will be taken to outpatient where you will be monitored for several hours. You may have one visitor in this area. Other than holding anti-coagulants, patient may take other medication(s) as scheduled. Prior to your appointment date patients are instructed to hold anti-coagulants after discussing with ordering provider to stop. If unable to discontinue anti-coagulants please notify radiologist. ? No aspirin or warfarin (Coumadin) for 7 days prior to the procedure. ? No clopidogrel (Plavix), ticagrelor (Brilinta), prasugrel (Effient) or dabigatran (Pradaxa) for 5 days prior to the procedure. ? No rivaroxaban (Xarelto), apixaban (Eliquis), dipyridamole (Aggrenox or Persantine) or cilostazol (Pletal) for 2 days prior to the procedure. Medications to discontinue per physician: __ASPIRIN Date to take last dose: __08/17/22 Please leave all valuables, including medications, at home the day of procedure. The hospital will not accept responsibility for valuables. Wear comfortable, loose fitting clothing.? Follow any additional instructions given to you from ordering provider. Telephone instructions given to ____PATIENT__and asked if any additional questions and then verbalized understanding. Patient advised to call scheduling provider office or registration scheduling [phone] if any additional questions.
[2022-08-25] VITALS (9 sets, daily range): BP systolic 124–157; BP diastolic 67–85; PULSE 64–71; RESP 16–18; TEMP 36.2; O2SAT 97–100; BMI 25.4
--- NOTE | ~2022-08-25 | XR_ITS ---
Clinical Indication: Postthoracentesis PA and lateral views of the chest: Comparison: 04/30/2022 Findings: Probable small residual right basilar pleural effusion present. There is mild haziness the right lung base.. There is no abnormal prominence along the superior right mediastinum. Bones and sof t tissues are unremarkable. Impression: Abnormal, somewhat masslike density along the superior right mediastinum. While this could reflect lo culated fluid, mass lesion not excluded. CT advised to further evaluate. Small residual right basilar pleural effusion. Reviewed, dictated and finalized at location M. [employer] Impression: Abnormal, somewhat masslike density along the superior right mediastinum. While this could reflect loculated fluid, mass lesion not excluded. CT advised to fu rther evaluate. Small residual right basilar pleural effusion.
--- NOTE | ~2022-08-25 | US_ITS ---
EXAMINATION: US thoracentesis DATE: 08/25/2022 12:14 INDICATION: Right lung cancer with new right pleural effusion TECHNIQUE: The procedure and its risks and benefits were discussed with the patient. Potential risks discussed included bleeding, infection, and pneumothorax. The patient understood the risks and agreed to proceed. The skin was prepped and draped in sterile fashion. 1% lidocaine was used for local anes thesia. Under ultrasound guidance, a 5 Fr catheter with trochar was advanced into the very small righ t pleural effusion. No fluid was able to be aspirated. The catheter was removed, and a dressing was a pplied. There were no immediate complications. FINDINGS: Ultrasound images demonstrate what appears to be a very hypoechoic right pleural effusion. Subsequent images demonstrate the catheter advanced into this hypoechoic region situated between the smooth per iphery of the echogenic and shadowing along and the smooth echogenic margin of the diaphragm. No flui d was able to be aspirated. IMPRESSION: 1. Unsuccessful ultrasound-guided thoracentesis yielding no fluid despite catheter tip appearing appr opriately positioned in the very hypoechoic pleural space which suggests either very thick complex ef fusion or that the hypoechoic region represents thickened or edematous pleura. Reviewed, dictated and finalized at location A. ENING MANAGER IMPRESSION: 1. Unsuccessful ultrasound-guided thoracentesis yielding no fluid despite luis ter tip appearing appropriately positioned in the very hypoechoic pleural space which suggests either very thick complex effusion or that the hypoechoic regio n represents thickened or edematous pleura.
--- NOTE | 2022-08-25 09:23 | SUR.PREOP ---
09- Notified Dr. Mckeon patient drank approximately 8 ounces of water this AM- last sips being around 0915. Per Dr. Mckeon OK to proceed with procedure.
[2022-08-25 10:14] LABS: Mean Platelet Volume 9.3 fl (7.4-10.4); Platelet Count Result 238 k/mm3 (150-375)
[2022-08-25 10:25] LABS: INR 1.2; Prothrombin Time 14.2 Seconds (11.1-14.7)
== END 2022-08-25 14:05 | disposition home or self-care (01) ==
PROVIDERS: Radiology Diagnostic Radiology; PCP Emergency Medicine; Referring Provider Internal Medicine Pulmonary Disease; Visit Provider Radiology Diagnostic Radiology
DX: J90 Pleural effusion, not elsewhere classified (principal)
CPT/HCPCS: 32555; 36415; 85049; 85610

== ENCOUNTER 2022-09-22 11:02 | Emergency (ER) | payer MEDICARE, MEDICAID, SELFPAY ==
--- NOTE | ~2022-09-22 | XR_ITS ---
Clinical Indication: Cough, fever PA and lateral views of the chest: Comparison: 04/30/2022 Findings: There is an 8.0 x 6.6 cm right paratracheal/right suprahilar mass. Lungs are otherwise bran r. Cardiac silhouette otherwise is unremarkable. Bones and soft tissues are unremarkable. Impression: 8.0 x 6.6 cm right paratracheal/right suprahilar mass, compatible with neoplastic/metastatic disease. Reviewed, dictated and finalized at location M. ASSEMBLER Impression: 8.0 x 6.6 cm right paratracheal/right suprahilar mass, compatible with neoplast ic/metastatic disease.
--- NOTE | 2022-09-22 11:08 | ED.EAR ---
HPI - Ear Problem General Chief complaint: Ear Stated complaint: EARACHE Time Seen by Provider: 09/22/22 11:09 Source: patient Mode of arrival: ambulatory Limitations: no limitations History of Present Illness HPI Narrative: 67-year-old male presents with complaint of right ear pain for week. Reports when ear pain starting he called his oncologist and was prescribed amoxicillin. States that amoxicillin is not helping. Right ear was not evaluated at that time due to telehealth visit. Patient is now complaining nasal congestion, cough, diaphoresis, ?feeling feverish ?. Had the symptoms for approximately 2 days. Patient is being treated for lung cancer and has shortness of breath at baseline. All systems reviewed and negative except as noted above. Related Data Home Medications Medication Instructions Recorded Confirmed acyclovir 400 mg tablet 400 mg PO BID 01/09/20 09/22/22 amlodipine 10 mg tablet (Norvasc) 10 mg PO DAILY 01/09/20 09/22/22 hydroxyzine pamoate 25 mg capsule 25 mg PO BID PRN Anxiety 01/09/20 09/22/22 (Vistaril) oxycodone 15 mg tablet 15 mg PO Q4H PRN Pain 01/09/20 09/22/22 dicyclomine 10 mg capsule 10 mg PO BID 10/28/20 09/22/22 prasugrel 10 mg tablet 10 mg PO DAILY 02/02/21 09/22/22 doxazosin 2 mg tablet 2 mg PO DAILY 10/31/21 09/22/22 rosuvastatin 10 mg tablet 10 mg PO DAILY 11/06/21 09/22/22 aspirin 81 mg tablet 81 mg PO DAILY 03/27/22 09/22/22 famotidine 40 mg tablet 40 mg PO DAILY 05/18/22 09/22/22 nebivolol 10 mg tablet 10 mg PO DAILY 05/18/22 09/22/22 Allergies Allergy/AdvReac Type Severity Reaction Status Date / Time Penicillins Allergy Unknown Anaphylaxis Verified 09/22/22 11:08 Review of Systems Review of Systems: CONSTITUTIONAL: Reports fever, chills, or sweats. EYES: Denies visual changes, redness, or discharge. ENT: Reports rhinorrhea, congestion. Denies sore throat, or otalgia. CARDIOVASCULAR: Denies chest pain, palpitations, or edema. RESPIRATORY: Report cough and dyspnea at baseline. GASTROINTESTINAL: Denies abdominal pain, nausea, vomiting, or diarrhea. GENITOURINARY: Denies dysuria or hematuria. SKIN: Denies rash or itching. MUSCULOSKELETAL: Denies back pain, joint pain, or myalgia. NEUROLOGIC: Denies headache, numbness, or weakness. PSYCHIATRIC: Denies anxiety or depression. All other systems reviewed are negative, except as documented in HPI. [facility] Past Medical History Medical History Acute urinary retention Contraindication to percutaneous coronary intervention (PCI) Coronary artery disease Emphysema lung GERD (gastroesophageal reflux disease) Hypertension Lung nodule Peripheral vascular disease Sinusitis Tobacco abuse Surgical History Surgical History H/O cardiac catheterization H/O neck surgery History of esophagogastroduodenoscopy (EGD) S/P partial lobectomy of lung Social History Social History Smoking packs per day: 1 Smoking cigarettes per day: 20.0 Smoking status: Former smoker Tobacco type: cigarettes Alcohol intake: current Alcohol use details: OCCASIONAL BEER Substance use: never Living arrangements: with family Gender identity (if verbalized by the patient): Male Comments At time of signature, agree with nursing past medical, surgical, social and family history. There is no relevant family history pertinent to the presenting complaint. Exam Narrative: GENERAL: This is a well-nourished, well-developed patient, in no apparent distress. HEAD: normocephalic, atraumatic. EYES: PERRL. Sclera clear/white. Vision is grossly intact. EARS: External ears normal, auditory canals clear and without drainage, fluid bilateral TMs, dull light reflex. NOSE: External nose normal with clear nasal drainage, erythema and swelling to both nares. THROAT: Mucous membranes moist, posterior phary
[2022-09-22 11:10] VITALS: BP 109/73; PULSE 89; RESP 16; TEMP 36.8; O2SAT 100
[2022-09-22 11:20] VITALS: BP 109/73; PULSE 89; RESP 16; TEMP 36.8; O2SAT 100
== END 2022-09-22 11:51 | disposition home or self-care (01) ==
PROVIDERS: Emergency Provider Nurse Practitioner Family; PCP Emergency Medicine
DX: H65.01 Acute serous otitis media, right ear (principal); J22 Unspecified acute lower respiratory infection; Z20.822 Contact with and (suspected) exposure to COVID-19; Z87.891 Personal history of nicotine dependence; I25.10 Atherosclerotic heart disease of native coronary artery without angina pectoris; K21.9 Gastro-esophageal reflux disease without esophagitis; I10 Essential (primary) hypertension; I73.9 Peripheral vascular disease, unspecified; Z90.2 Acquired absence of lung [part of]; J43.9 Emphysema, unspecified
CPT/HCPCS: 71046; 87426; 87804; 99213; C9803; G0463

== ENCOUNTER 2022-12-16 12:25 | Emergency (ER) | payer MEDICARE, MEDICAID, SELFPAY ==
--- NOTE | ~2022-12-16 | CT_ITS ---
EXAMINATION: CT abdomen pelvis w con DATE: 12/16/2022 14:56 INDICATION: Suprapubic pain. Left lower quadrant tenderness. TECHNIQUE: Computed tomography (CT) of the abdomen and pelvis was performed with 100 cc Omnipaque 350 intravenous contrast. The dose-length product was 403.16 mGy-cm. Automated exposure control and iter ative reconstruction technique were employed. COMPARISON: CT dated 04/30/2022 FINDINGS: There are chronic interstitial infiltrates of the right lower lobe with interlobular septal thickening and groundglass opacification. Small right pleural effusion. No significant pericardial e ffusion. Heart size upper normal. There are multiple low-density lesions in the liver, likely benign cysts. Elevated right diaphragm. T here is abnormal thickening of the distal stomach and duodenum, suspicious for gastritis/duodenitis. The spleen, pancreas, adrenal glands are unremarkable. There are multiple small low-density lesions i n the kidneys, most likely benign. There is an intermediate density right renal mass measuring 11 mm measuring 74 Hounsfield units, suspicious for renal cell carcinoma. Gallbladder is present. Bladder w all is diffusely thickened. Cannot exclude cystitis. There is thickening of the sigmoid colon with mi nimal surrounding pericolonic fatty infiltration. Cannot exclude mild diverticulitis. There is athero sclerosis of the aorta with ectasia. No aneurysm identified. There is right inguinal hernia containin g fluid. There is moderate-severe lumbar spondylosis most advanced at L5-S1. There are bilateral inte rnal iliac artery stents. IMPRESSION: 1. Chronic right lower lobe interlobular septal thickening and groundglass opacification which may re present chronic interstitial lung disease, atypical pneumonia and/or atelectasis. 2: Abnormal thickening of the stomach and duodenum, suspicious for gastritis/duodenitis. 3: Intermediate density right renal mass measuring 11 mm, suspicious for renal cell carcinoma. Recomm end correlation with MRI with and without contrast. 4: Mild thickening of the sigmoid colon with subtle pericolonic fatty infiltration which may represen t colitis/diverticulitis. 5: Thickening of the bladder wall. Consider cystitis in the appropriate clinical setting. Reviewed, dictated and finalized at location A. IMPRESSION: 1. Chronic right lower lobe interlobular septal thickening and groundglass opac ification which may represent chronic interstitial lung disease, atypical pneum onia and/or atelectasis. 2: Abnormal thickening of the stomach and duodenum, suspicious for gastritis/d uodenitis. 3: Intermediate density right renal mass measuring 11 mm, suspicious for renal cell carcinoma. Recommend correlation with MRI with and without contrast. 4: Mild thickening of the sigmoid colon with subtle pericolonic fatty infiltrat ion which may represent colitis/diverticulitis. 5: Thickening of the bladder wall. Consider cystitis in the appropriate clinica l setting.
[2022-12-16 12:28] VITALS: BP 127/75; PULSE 82; RESP 18; TEMP 36.3; O2SAT 100
--- NOTE | 2022-12-16 12:37 | PC.NURSE ---
pt c/o dysuria x 1 week. c/o burning/pain with urination. denies any blood in urine or flank pain.
[2022-12-16 13:06] LABS: Appearance Urine Clear (Clear); Bilirubin Urine Negative (Negative); Blood Urine Negative (Negative); Color Urine Yellow (Yellow); Glucose Urine UA Negative (Negative); Ketones Urine Negative (Negative); Leukocyte Esterase Ur Negative LEU/UL (Negative); Nitrate Urine Negative (Negative); Protein Urine Negative (Negative); Specific Grav Ur 1.012 (1.001-1.035); pH Urine 6.5 (5.0-9.0)
--- NOTE | 2022-12-16 13:13 | ED.MALEGU ---
HPI - Male Genitourinary General Chief complaint: Urogenital-Male Stated complaint: bladder infection? Time Seen by Provider: 12/16/22 12:52 History of Present Illness HPI Narrative: Patient is a 67-year-old male presenting with increased urinary frequency. Patient states over the last several days he has been urinating every 15 to 20 minutes. States that sometimes it gómez when he urinates. States that he has had some suprapubic pain. States he is concerned for UTI. Patient also complains of chronic musculoskeletal pain. States that he has been having some left shoulder pain lately. States that he takes oxycodone on a chronic basis. He denies any recent falls or trauma. Denies chest pain or shortness of breath. No lightheadedness or palpitations. No nausea or vomiting, diarrhea, constipation. No leg swelling. Related Data Home Medications Medication Instructions Recorded Confirmed acyclovir 400 mg tablet 400 mg PO BID 01/09/20 09/22/22 amlodipine 10 mg tablet (Norvasc) 10 mg PO DAILY 01/09/20 09/22/22 hydroxyzine pamoate 25 mg capsule 25 mg PO BID PRN Anxiety 01/09/20 09/22/22 (Vistaril) oxycodone 15 mg tablet 15 mg PO Q4H PRN Pain 01/09/20 09/22/22 dicyclomine 10 mg capsule 10 mg PO BID 10/28/20 09/22/22 prasugrel 10 mg tablet 10 mg PO DAILY 02/02/21 09/22/22 doxazosin 2 mg tablet 2 mg PO DAILY 10/31/21 09/22/22 rosuvastatin 10 mg tablet 10 mg PO DAILY 11/06/21 09/22/22 aspirin 81 mg tablet 81 mg PO DAILY 03/27/22 09/22/22 famotidine 40 mg tablet 40 mg PO DAILY 05/18/22 09/22/22 nebivolol 10 mg tablet 10 mg PO DAILY 05/18/22 09/22/22 Allergies Allergy/AdvReac Type Severity Reaction Status Date / Time Penicillins Allergy Unknown Anaphylaxis Verified 09/22/22 11:08 Review of Systems Review of Systems: All systems reviewed & are unremarkable except as noted in HPI and below PMFSH Past Medical History Medical History Acute urinary retention Contraindication to percutaneous coronary intervention (PCI) Coronary artery disease Emphysema lung GERD (gastroesophageal reflux disease) Hypertension Lung nodule Peripheral vascular disease Sinusitis Tobacco abuse Surgical History Surgical History H/O cardiac catheterization H/O neck surgery History of esophagogastroduodenoscopy (EGD) S/P partial lobectomy of lung Social History Social History Smoking packs per day: 1 Smoking cigarettes per day: 20.0 Smoking status: Former smoker Tobacco type: cigarettes Alcohol intake: current Alcohol use details: OCCASIONAL BEER Substance use: never Living arrangements: with family Gender identity (if verbalized by the patient): Male Exam Narrative: GENERAL: Well-appearing, well-nourished, and in no acute distress. HEAD: Normocephalic, atraumatic. EYES: PERRLA and EOMI. ENT: Nares clear, no rhinorrhea or epistaxis. Mucous membranes moist. NECK: Supple. CHEST: Clear to auscultation. No respiratory distress. HEART: Regular rate and rhythm. No murmur heard. Normal peripheral pulses. ABDOMEN: Soft, mild suprapubic tenderness, no guarding or rebound EXTREMITIES: Normal range of motion. No edema. tenderness posterior glenohumeral joint, ROM intact, neurovascularly intact, no deformities or injuries SKIN: Warm, dry, no rash. NEURO: No focal deficits. Alert and oriented x3. PSYCH: Normal mood and affect. Course Vital Signs Vital signs: Vital Signs Temperature 97.3 F L 12/16/22 12:28 Pulse Rate 82 12/16/22 12:28 Respiratory Rate 18 12/16/22 12:28 Blood Pressure 127/75 12/16/22 12:28 Pulse Oximetry 100 12/16/22 12:28 Oxygen Delivery Room Air 12/16/22 12:28 Temperature 97.3 F L 12/16/22 12:28 Pulse Rate 92 12/16/22 16:45 Respiratory Rate 16 12/16/22 16:45 Blood Pressure 156/78 H 12/16/22 16:45 Pulse O
[2022-12-16 13:17] LABS: Add Urine Microscopic? NO
[2022-12-16] MEDS: oxyCODONE HCL (*CRX) 5 MG TAB IR PO (13:22)
[2022-12-16 14:00] VITALS: BP 127/68; PULSE 73; RESP 16; O2SAT 96
[2022-12-16 14:14] LABS: Eosinophils Percent Auto 1.4 % (0-4.4); Hematocrit 30.2 % (42.0-52.0); Hemoglobin 9.2 g/dL (14.0-18.0); Immature Granulocyte Absolute 0.01 K/mm3 (0.00-0.031); Immature Granulocyte Percent A 0.3 % (0-0.5); Lymphocytes Percent Auto 24.5 % (18.3-44.2); Mean Corpuscular HGB Conc 30.5 g/dl (32-36); Mean Corpuscular Hemoglobin 26.4 pg (26-34); Mean Corpuscular Volume 86.5 fl (80-100); Mean Platelet Volume 11.5 fl (7.4-10.4); Monocytes Absolute Auto 0.7 K/mm3 (0.1-0.6); Monocytes Percent Auto 23.8 % (2.6-8.5); Neutrophils Absolute Auto 1.4 K/mm3 (1.3-6.7); Platelet Count Result 104 k/mm3 (150-375); Red Blood Count 3.49 M/mm3 (4.6-6.20); White Blood Count 2.9 K/mm3 (4.5-10.0)
[2022-12-16 14:21] LABS: Alanine Aminotransferase 21 U/L (6-50); Albumin Level 3.9 g/dL (3.5-5.1); Alkaline Phosphatase 63 U/L (38-126); Anion Gap 6 mmol/L (8-16); Aspartate Amino Transferase 33 U/L (17-59); Bilirubin,Total 0.7 mg/dL (0.2-1.3); Blood Urea Nitrogen 4 mg/dL (9-20); Calcium 8.6 mg/dL (8.4-10.2); Carbon Dioxide 29 mmol/L (22-30); Chloride 102 mmol/L (98-107); Estimated CRCL calculation 77 ml/min; Estimated Glomerular Filt Rate > 60; Glucose 84 mg/dL (65-110); Lipase 18 U/L (23-300); Potassium 2.9 mmol/L (3.4-5.0); Sodium 137 mmol/L (137-145)
[2022-12-16 15:00] VITALS: BP 146/74; PULSE 65; RESP 18; O2SAT 96
[2022-12-16] MEDS: POTASSIUM CHLORIDE 20 MEQ TABLET 40 MEQ PO (16:33)
[2022-12-16] MEDS: oxyCODONE HCL (*CRX) 5 MG TAB IR 10 MG PO (16:34)
[2022-12-16] MEDS: CIPROFLOXACIN 500 MG TAB PO (16:34)
[2022-12-16] MEDS: metroNIDAZOLE 250 MG TABLET 500 MG PO (16:35)
[2022-12-16 16:45] VITALS: BP 156/78; PULSE 92; RESP 16; O2SAT 100
== END 2022-12-16 16:45 | disposition home or self-care (01) ==
PROVIDERS: Physician Assistant; Emergency Provider Emergency Medicine; PCP Emergency Medicine
DX: K57.92 Diverticulitis of intestine, part unspecified, without perforation or abscess without bleeding (principal); K52.9 Noninfective gastroenteritis and colitis, unspecified; N28.89 Other specified disorders of kidney and ureter; E87.6 Hypokalemia; I25.10 Atherosclerotic heart disease of native coronary artery without angina pectoris; J43.9 Emphysema, unspecified; I10 Essential (primary) hypertension; I73.9 Peripheral vascular disease, unspecified; K21.9 Gastro-esophageal reflux disease without esophagitis; Z90.2 Acquired absence of lung [part of]; Z87.891 Personal history of nicotine dependence; Z79.82 Long term (current) use of aspirin; R91.8 Other nonspecific abnormal finding of lung field; R93.5 Abnormal findings on diagnostic imaging of other abdominal regions, including retroperitoneum; R93.41 Abnormal radiologic findings on diagnostic imaging of renal pelvis, ureter, or bladder
CPT/HCPCS: 36415; 74177; 80053; 81003; 83690; 85025; 99284; A9270; Q9967

== ENCOUNTER 2023-01-10 17:07 | Emergency (ER) | payer MEDICARE, MEDICAID, SELFPAY ==
[2023-01-10] VITALS (34 sets, daily range): BP systolic 123–159; BP diastolic 71–87; PULSE 71–88; RESP 13–22; TEMP 36.8; O2SAT 97–100
--- NOTE | ~2023-01-10 | CT_ITS ---
EXAMINATION: CT brain wo con DATE: 01/10/2023 18:23 INDICATION: right side headache . TECHNIQUE: Computed tomography (CT) of the head was performed without intravenous contrast. The mA wa s adjusted according to patient size. Iterative reconstruction technique was employed. The dose-lengt h product was 605.33 mGy-cm. COMPARISON: 05/18/2021; MR brain 02/12/2022. Reports were reviewed, images could not be retrieved from the cervix. FINDINGS: 1.8 cm slightly hyperdense mass in the left cerebellar hemisphere, with surrounding vasogenic edema. No acute intracranial hemorrhage or extra-axial fluid collection. No hydrocephalus or herniation. No acute ischemic infarct. Unremarkable dural venous sinus attenuation. No acute osseous abnormality. Old medial orbital wall fracture. The aerated spaces are clear. Moderate atrophy and chronic white matter change. Atherosclerotic intracranial calcification. Bilater al lens replacements. IMPRESSION: 1.8 cm left cerebellar mass with surrounding vasogenic edema, concerning for metastatic disease. Reviewed, dictated and finalized at location K. IMPRESSION: 1.8 cm left cerebellar mass with surrounding vasogenic edema, concerning for me tastatic disease.
[2023-01-10] MEDS: oxyCODONE HCL (*CRX) 5 MG TAB IR 15 MG PO (18:06)
[2023-01-10 18:17] LABS: Basophils Percent Auto 0.5 % (0.2-1.2); Eosinophils Percent Auto 0.3 % (0-4.4); Hematocrit 27.9 % (42.0-52.0); Hemoglobin 8.8 g/dL (14.0-18.0); Immature Granulocyte Absolute 0.07 K/mm3 (0.00-0.031); Immature Granulocyte Percent A 1.2 % (0-0.5); Lymphocytes Absolute Auto 0.67 K/mm3 (0.9-3.2); Mean Corpuscular HGB Conc 31.5 g/dl (32-36); Mean Corpuscular Hemoglobin 27.3 pg (26-34); Mean Corpuscular Volume 86.6 fl (80-100); Monocytes Absolute Auto 1.4 K/mm3 (0.1-0.6); Monocytes Percent Auto 22.9 % (2.6-8.5); Neutrophils Absolute Auto 3.9 K/mm3 (1.3-6.7); Neutrophils Percent Auto 64.1 % (45.5-73.1); Platelet Count Result 171 k/mm3 (150-375); Red Blood Count 3.22 M/mm3 (4.6-6.20); Red Cell Distribution Width 18.7 % (11.5-14.5); White Blood Count 6.1 K/mm3 (4.5-10.0)
[2023-01-10 18:33] LABS: Alanine Aminotransferase 16 U/L (6-50); Albumin Level 3.5 g/dL (3.5-5.1); Alkaline Phosphatase 71 U/L (38-126); Anion Gap 6 mmol/L (8-16); Aspartate Amino Transferase 30 U/L (17-59); Bilirubin,Total 0.5 mg/dL (0.2-1.3); Blood Urea Nitrogen 5 mg/dL (9-20); Calcium 8.5 mg/dL (8.4-10.2); Carbon Dioxide 33 mmol/L (22-30); Chloride 96 mmol/L (98-107); Estimated CRCL calculation 69 ml/min; Estimated Glomerular Filt Rate > 60; Glucose 96 mg/dL (65-110); Potassium 2.7 mmol/L (3.4-5.0); Sodium 135 mmol/L (137-145)
--- NOTE | 2023-01-10 19:05 | ED.HA ---
HPI - Headache General Chief Complaint: Headache <Julee Herring MD - Last Filed: 01/10/23 23:04> Stated Complaint: R FACE PAIN/SWELLING <Julee Herring MD - Last Filed: 01/10/23 23:04> Time Seen by Provider: 01/10/23 17:38 <Julee Herring MD - Last Filed: 01/10/23 23:04> Source: patient and RN notes reviewed <Julee Herring MD - Last Filed: 01/10/23 23:04> Mode of arrival: ambulatory <Julee Herring MD - Last Filed: 01/10/23 23:04> Limitations: no limitations <Julee Herring MD - Last Filed: 01/10/23 23:04> History of Present Illness HPI Narrative: This is a 67 year old male with history of metastatic lung cancer who presents for evaluation of headache. Patient states he has been having right side headache and right postauricular pain for 4 days. His pain is intermittent and he describes as throbbing. He has been taking ibuprofen and oxycodone for pain.He states his pain has improved with ibuprofen. HE has not taken any oxycodone for pain. He denies blurred vision, diplopia, nausea, vomiting, fever, chills. He reports diarrhea from his chemotherapy. His last chemo treatment was 2 weeks ago and he states he recently had Neupogen injection. He denies focal weakness, numbness or tingling. He reports left arm pain. His oncologist is Dr. Antoine Hernandez. <Julee Herring MD - Last Filed: 01/10/23 23:04> Related Data Home Medications: Home Medications Medication Instructions Recorded Confirmed acyclovir 400 mg tablet 400 mg PO BID 01/09/20 09/22/22 amlodipine 10 mg tablet (Norvasc) 10 mg PO DAILY 01/09/20 09/22/22 hydroxyzine pamoate 25 mg capsule 25 mg PO BID PRN Anxiety 01/09/20 09/22/22 (Vistaril) oxycodone 15 mg tablet 15 mg PO Q4H PRN Pain 01/09/20 09/22/22 dicyclomine 10 mg capsule 10 mg PO BID 10/28/20 09/22/22 prasugrel 10 mg tablet 10 mg PO DAILY 02/02/21 09/22/22 doxazosin 2 mg tablet 2 mg PO DAILY 10/31/21 09/22/22 rosuvastatin 10 mg tablet 10 mg PO DAILY 11/06/21 09/22/22 aspirin 81 mg tablet 81 mg PO DAILY 03/27/22 09/22/22 famotidine 40 mg tablet 40 mg PO DAILY 05/18/22 09/22/22 nebivolol 10 mg tablet 10 mg PO DAILY 05/18/22 09/22/22 <Julee Herring MD - Last Filed: 01/10/23 23:04> Allergies/Adverse Reactions: Allergies Allergy/AdvReac Type Severity Reaction Status Date / Time Penicillins Allergy Unknown Anaphylaxis Verified 01/10/23 17:14 <Julee Herring MD - Last Filed: 01/10/23 23:04> Review of Systems Constitutional: Constitutional: Denies weakness <Julee Herring MD - Last Filed: 01/10/23 23:04> Cardiovascular: Cardiovascular: Denies syncope, Denies rapid heart rate, Denies irregular heart rhythm, Denies leg edema and Denies dyspnea <Julee Herring MD - Last Filed: 01/10/23 23:04> Respiratory: Respiratory: Denies chest congestion, Denies hemoptysis, Denies excessive phlegm production and Denies dyspnea <Julee Herring MD - Last Filed: 01/10/23 23:04> Gastrointestinal: Gastrointestinal: Denies abdominal pain, Denies hematochezia, Denies diarrhea and Denies vomiting <Julee Herring MD - Last Filed: 01/10/23 23:04> Genitourinary: Genitourinary: Denies hematuria, Denies dysuria, Denies penile discharge and Denies testicular pain <Julee Herring MD - Last Filed: 01/10/23 23:04> Musculoskeletal: Musculoskeletal: Reports myalgias, Denies joint swelling, Denies loss of height and Denies muscle weakness <Julee Herring MD - Last Filed: 01/10/23 23:04> Neurologic: Denies syncope, Reports headache(s), Denies focal weakness and Denies weakness <Julee Herring MD - Last Filed: 01/10/23 23:04> [facility] Past Medical History Medical History: Medical History Acute urinary retention Contraindication to percutaneous coronary intervention (PCI) Coronary artery disease Emphysema lung GERD (gastroesophageal reflux disease) Hypertension Lung nodule Per
[2023-01-10] MEDS: POTASSIUM CHLORIDE 20 MEQ TABLET 40 MEQ PO (19:23)
[2023-01-10 19:34] LABS: Magnesium 1.3 mg/dL (1.6-2.3)
--- NOTE | 2023-01-10 20:43 | PC.NURSE ---
2004: PATIENT ON WAITLIST AT [facility]. 2034: PATIENT ACCEPTED AT [facility]...WAITING ON BED.
[2023-01-10] MEDS: POTASSIUM CHLORIDE INJ 40 MEQ in SODIUM CHLORIDE 0.9% IV 500 ML 130 MEQ IVPB (20:46)
--- NOTE | 2023-01-10 21:04 | PC.NURSE ---
[facility] called for triage report, will call back when a bed comes available.
[2023-01-11] VITALS (19 sets, daily range): BP systolic 108–144; BP diastolic 68–97; PULSE 66–92; RESP 13–22; TEMP 36.6; O2SAT 97–100
[2023-01-11] MEDS: oxyCODONE HCL (*CRX) 5 MG TAB IR 15 MG PO ×2 (00:20→09:59)
[2023-01-11] MEDS: hydrOXYzine HCL 25 MG TABLET PO (01:07)
[2023-01-11] MEDS: PANTOPRAZOLE 40 MG TABLET PO (05:45)
[2023-01-11] MEDS: DICYCLOMINE HCL 10 MG CAPSULE PO (05:45)
[2023-01-11] MEDS: amLODIPine BESYLATE 5 MG TABLET 10 MG PO (05:48)
[2023-01-11] MEDS: PRASUGREL HCL 10 MG TABLET PO (05:54)
[2023-01-11] MEDS: NEBIVOLOL HCL 5 MG TABLET 10 MG PO (05:54)
--- NOTE | 2023-01-11 06:09 | PC.NURSE ---
0606: No beds available yet (neurosurgery).
--- NOTE | 2023-01-11 08:42 | PC.NURSE ---
Received a call from Crow from [facility] transfer center,no bed at this time pt is still on the waiting list. Crow will call back when bed is available.
[2023-01-11] MEDS: ARTIFICIAL TEARS OPHTH SOLN 15 ML BOTTLE 1 DROP EACH EYE (12:37)
[2023-01-11] MEDS: TAMSULOSIN HCL 0.4 MG CAPSULE PO (20:50)
[2023-01-11] MEDS: FINASTERIDE 5 MG TABLET PO (20:51)
[2023-01-11] MEDS: SIMETHICONE 125 MG CHEW TAB PO (20:51)
[2023-01-12] VITALS (54 sets, daily range): BP systolic 107–136; BP diastolic 57–89; PULSE 63–104; RESP 15–20; TEMP 36.6; O2SAT 87–100
--- NOTE | 2023-01-12 04:19 | PC.NURSE ---
Patient requested his Hydroxyzine and a laxative since he stated I am getting constipated . Notified Dr. Montes, who advised to give patient his hydroxyzine 25mg PO and docusate 100mg PO.
[2023-01-12] MEDS: hydrOXYzine HCL 25 MG TABLET PO (04:33)
--- NOTE | 2023-01-12 07:35 | PC.NURSE ---
07:32 called [facility] , status on bed. No bed yet, maybe later tonight. Calling Hospitalist Dr. Centeno
[2023-01-12] MEDS: amLODIPine BESYLATE 5 MG TABLET 10 MG PO (09:29)
[2023-01-12] MEDS: NEBIVOLOL HCL 5 MG TABLET 10 MG PO (09:30)
[2023-01-12] MEDS: DOCUSATE SODIUM 100 MG CAPSULE PO (09:33)
--- NOTE | 2023-01-12 12:13 | PC.NURSE ---
Barbara from [facility] transfer center called asking for pt status. RN updates facility and informs that pt still requires transfer. Barbara states she will update with bed status.
[2023-01-12] MEDS: oxyCODONE/ACETAMINOPHEN (*CRX) 10-325 MG TABLET 1 TAB PO (14:13)
--- NOTE | 2023-01-12 18:08 | PC.NURSE ---
pt asking if he can go home and have testing done outpatient since he has been sitting here for 2 days. notified. [facility] neuro being recontacted.
[2023-01-12] MEDS: oxyCODONE/ACETAMINOPHEN (*CRX) 5-325 MG TABLET 1 TABLET PO (20:56)
[2023-01-12] MEDS: FINASTERIDE 5 MG TABLET PO (21:55)
[2023-01-12] MEDS: ACYCLOVIR 400 MG TABLET PO (21:55)
== END 2023-01-12 22:04 | disposition home or self-care (01) ==
PROVIDERS: General Practice; Emergency Provider Preventive Medicine Aerospace Medicine; PCP Emergency Medicine
DX: G93.89 Other specified disorders of brain (principal); C34.90 Malignant neoplasm of unspecified part of unspecified bronchus or lung; C79.9 Secondary malignant neoplasm of unspecified site; I25.10 Atherosclerotic heart disease of native coronary artery without angina pectoris; J43.9 Emphysema, unspecified; I10 Essential (primary) hypertension; I73.9 Peripheral vascular disease, unspecified; K21.9 Gastro-esophageal reflux disease without esophagitis; Z87.891 Personal history of nicotine dependence; Z90.2 Acquired absence of lung [part of]; Z79.60 Long term (current) use of unspecified immunomodulators and immunosuppressants; Z79.82 Long term (current) use of aspirin
CPT/HCPCS: 36415; 70450; 80053; 83735; 85025; 86140; 96365; 96366; 96375; 96376; 99284; A9270; J1100; J3480; J7040

== ENCOUNTER 2023-01-18 15:28 | Outpatient (CLI) | payer MEDICARE, MEDICAID, SELFPAY ==
--- NOTE | ~2023-01-18 | US_ITS ---
EXAMINATION: US venous doppler UE RT DATE: 01/18/2023 16:00 INDICATION: Right upper extremity edema TECHNIQUE: Will scale images with and without compression and Doppler images of the right upper extre mity veins were obtained. COMPARISON: None. FINDINGS: The right internal jugular vein, subclavian vein, axillary vein, brachial veins, basilic vein, cephal ic vein, radial vein, and ulnar vein are patent. IMPRESSION: 1. Patent right upper extremity veins. No evidence of deep venous thrombosis. Reviewed, dictated and finalized at location B.
== END 2023-01-18 15:29 | disposition home or self-care (01) ==
LOC: ANHLAB 15:28
PROVIDERS: PCP Emergency Medicine; Visit Provider Internal Medicine Hematology & Oncology
DX: R22.31 Localized swelling, mass and lump, right upper limb (principal)
CPT/HCPCS: 93971

== ENCOUNTER 2023-01-27 04:49 | Emergency (ER) | payer MEDICARE, MEDICAID, SELFPAY ==
--- NOTE | 2023-01-27 05:15 | ED.GENADULT ---
HPI - General Adult General Chief complaint: Weakness Stated complaint: GEN SHOULDER PAIN & WEAKNESS Time Seen by Provider: 01/27/23 04:53 History of Present Illness HPI narrative: Patient is a 67-year-old male who presents ER with muscle cramps. Located in his shoulders and legs. Associated generalized weakness. No dizziness or falls. No nausea or vomiting. Patient known to have a cerebellar mass. He is currently undergoing mask fitting for radiation. He reports that he has been taking his steroids as prescribed. Symptoms began 4 days ago and he went to [facility] to be evaluated. There he had blood work performed and was discharged home. Reports he has been taking muscle relaxers without improvement. Chart review shows he is on oxycodone chronically. He reports he did run out of his oxycodone shortly before his symptoms began. He reports he does feel like he is in need of some narcotic pain therapy. He is scheduled to follow-up with his doctor tomorrow where he will also have his oxycodone refilled. Denies diarrhea or abdominal pain. No vomiting or sweats. Related Data Home Medications Medication Instructions Recorded Confirmed acyclovir 400 mg tablet 400 mg PO BID 01/09/20 09/22/22 amlodipine 10 mg tablet (Norvasc) 10 mg PO DAILY 01/09/20 09/22/22 hydroxyzine pamoate 25 mg capsule 25 mg PO BID PRN Anxiety 01/09/20 09/22/22 (Vistaril) oxycodone 15 mg tablet 15 mg PO Q4H PRN Pain 01/09/20 09/22/22 dicyclomine 10 mg capsule 10 mg PO BID 10/28/20 09/22/22 prasugrel 10 mg tablet 10 mg PO DAILY 02/02/21 09/22/22 doxazosin 2 mg tablet 2 mg PO DAILY 10/31/21 09/22/22 rosuvastatin 10 mg tablet 10 mg PO DAILY 11/06/21 09/22/22 aspirin 81 mg tablet 81 mg PO DAILY 03/27/22 09/22/22 famotidine 40 mg tablet 40 mg PO DAILY 05/18/22 09/22/22 nebivolol 10 mg tablet 10 mg PO DAILY 05/18/22 09/22/22 dexamethasone 4 mg tablet 4 mg PO BID 01/21/23 magnesium oxide 400 mg PO DAILY 01/21/23 omeprazole 20 mg capsule,delayed 20 mg PO DAILY 01/21/23 release potassium chloride 20 mEq 20 meq PO DAILY 01/21/23 tablet,extended release(part/cryst) (Klor-Con M) Allergies Allergy/AdvReac Type Severity Reaction Status Date / Time Penicillins Allergy Unknown Anaphylaxis Verified 01/10/23 17:14 Review of Systems Review of Systems: All systems reviewed & are unremarkable except as noted in HPI and below Constitutional: Constitutional: Denies chills, Denies fatigue, Denies fever(s) and Reports weakness ENT: Denies nasal congestion and Denies sore throat Cardiovascular: Cardiovascular: Denies chest pain, Denies rapid heart rate and Denies radiating jaw, neck or arm pain Respiratory: Respiratory: Denies cough and Denies dyspnea Gastrointestinal: Gastrointestinal: Denies abdominal pain, Denies nausea and Denies vomiting Musculoskeletal: Musculoskeletal: Denies back pain, Denies arthralgias and Reports muscle cramps PMFSH Past Medical History Medical History Acute urinary retention Contraindication to percutaneous coronary intervention (PCI) Coronary artery disease Emphysema lung GERD (gastroesophageal reflux disease) Hypertension Lung nodule Peripheral vascular disease Sinusitis Tobacco abuse Surgical History Surgical History H/O cardiac catheterization H/O neck surgery History of esophagogastroduodenoscopy (EGD) S/P partial lobectomy of lung Family History Family History (Updated 01/21/23 @ 13:46 by Shauna Lozada MA) Father Cancer Mother Hypertension Social History Social History (Updated 01/21/23 @ 13:54 by Shauna Lozada MA) Social History: Loki feels very confident filling out medical forms, and in the last 12 months he has received assistance for housing. Loki awakens 4 times a night to urinate, declined to answer difficulty getting or maintaining an erection, has had P
[2023-01-27] MEDS: MORPHINE SULFATE (*CRX) 4 MG/ML INJ IV PUSH (06:23)
[2023-01-27 06:25] VITALS: BP 133/75; PULSE 88; RESP 18; O2SAT 100
[2023-01-27 06:26] LABS: Basophils Percent Auto 0.2 % (0.2-1.2); Eosinophils Percent Auto 0.3 % (0-4.4); Hematocrit 39.9 % (42.0-52.0); Hemoglobin 12.7 g/dL (14.0-18.0); Immature Granulocyte Absolute 0.08 K/mm3 (0.00-0.031); Immature Granulocyte Percent A 1.3 % (0-0.5); Lymphocytes Absolute Auto 0.52 K/mm3 (0.9-3.2); Lymphocytes Percent Auto 8.7 % (18.3-44.2); Mean Corpuscular HGB Conc 31.8 g/dl (32-36); Mean Corpuscular Hemoglobin 27.5 pg (26-34); Mean Corpuscular Volume 86.4 fl (80-100); Mean Platelet Volume 9.6 fl (7.4-10.4); Monocytes Absolute Auto 1.3 K/mm3 (0.1-0.6); Monocytes Percent Auto 21.3 % (2.6-8.5); Neutrophils Absolute Auto 4.1 K/mm3 (1.3-6.7); Neutrophils Percent Auto 68.2 % (45.5-73.1); Platelet Count Result 267 k/mm3 (150-375); Red Blood Count 4.62 M/mm3 (4.6-6.20); Red Cell Distribution Width 17.9 % (11.5-14.5)
[2023-01-27 06:31] LABS: Alanine Aminotransferase 28 U/L (6-50); Albumin Level 4.2 g/dL (3.5-5.1); Alkaline Phosphatase 79 U/L (38-126); Anion Gap 9 mmol/L (8-16); Aspartate Amino Transferase 28 U/L (17-59); Bilirubin,Total 0.6 mg/dL (0.2-1.3); Blood Urea Nitrogen 15 mg/dL (9-20); Calcium 9.1 mg/dL (8.4-10.2); Carbon Dioxide 27 mmol/L (22-30); Chloride 100 mmol/L (98-107); Estimated Glomerular Filt Rate > 60; Glucose 99 mg/dL (65-110); Magnesium 1.8 mg/dL (1.6-2.3); Potassium 3.3 mmol/L (3.4-5.0); Sodium 136 mmol/L (137-145)
[2023-01-27 07:29] VITALS: BP 126/94; PULSE 94; RESP 16; O2SAT 100
== END 2023-01-27 07:32 | disposition home or self-care (01) ==
PROVIDERS: Emergency Provider Emergency Medicine; PCP Emergency Medicine
DX: R25.2 Cramp and spasm (principal); I25.10 Atherosclerotic heart disease of native coronary artery without angina pectoris; J43.9 Emphysema, unspecified; I10 Essential (primary) hypertension; I73.9 Peripheral vascular disease, unspecified; K21.9 Gastro-esophageal reflux disease without esophagitis; Z87.891 Personal history of nicotine dependence; Z90.2 Acquired absence of lung [part of]; Z79.82 Long term (current) use of aspirin
CPT/HCPCS: 36415; 80053; 83735; 85025; 96374; 99284; J2270

== ENCOUNTER 2023-02-18 21:43 | Observation (INO) | payer MEDICARE, MEDICAID, SELFPAY ==
--- NOTE | ~2023-02-18 | XR_ITS ---
Lumbosacral Spine: AP and lateral views Clinical History: Pain Findings: The normal lordotic curve is maintained. No fracture or subluxation identified. There is ad vanced degenerative disc narrowing at L5-S1. There is mild to moderate facet arthropathy from L3 thro ugh S1. The sacroiliac joints are normally outlined. Vascular stents noted at the aortic bifurcation region. Impression: Mild degenerative spondylosis overall, as detailed above. Reviewed, dictated and finalized at location M. Impression: Mild degenerative spondylosis overall, as detailed above.
--- NOTE | ~2023-02-18 | CT_ITS ---
EXAMINATION: CT brain wo con DATE: 02/18/2023 22:17 INDICATION: Brain metastasis . TECHNIQUE: Computed tomography (CT) of the head was performed without intravenous contrast. The mA wa s adjusted according to patient size. Iterative reconstruction technique was employed. The dose-lengt h product was 605.33 mGy-cm. COMPARISON: CT brain 01/10/2023, MR brain 02/12/2022. FINDINGS: Mildly increased size of the ventricular system. Mildly increased periventricular white matter hypoin tensity. Central low density now present within the approximately 1.8 cm left posterior fossa mass. N o other masses detected. No acute intracranial hemorrhage or extra-axial fluid collection. No herniation. No acute ischemic infarct. Unremarkable dural venous sinus attenuation. No acute osseous abnormality. Old left medial orbital wall fracture. The aerated spaces are clear. Moderate atrophy and chronic white matter change. Atherosclerotic intracranial calcification. Bilater al lens replacements. IMPRESSION: No acute large vessel infarct or acute intracranial hemorrhage. The 1.8 cm left posterior fossa mass, hypodense, presumably related to interval chemotherapy and/or r adiation therapy. Slightly increased size of the ventricular system with increased periventricular white matter hypoden sity, presumably post therapeutic changes. Sensitivity would be increased with the use of intravenous contrast or MRI of the brain. Reviewed, dictated and finalized at location K. IMPRESSION: No acute large vessel infarct or acute intracranial hemorrhage. The 1.8 cm left posterior fossa mass, hypodense, presumably related to interval chemotherapy and/or radiation therapy. Slightly increased size of the ventricular system with increased periventricula r white matter hypodensity, presumably post therapeutic changes. Sensitivity would be increased with the use of intravenous contrast or MRI of t he brain.
--- NOTE | ~2023-02-18 | XR_ITS ---
EXAMINATION: XR chest 1V Exam Date/Time: 02/18/2023 22:15 CDT HISTORY: Seizure YESTERDAY, STARTED NEW MED AND PCP SENT HIM TO ER Comparison: CT abdomen pelvis 12/16/2022; x-ray chest 09/22/2022; CT chest 06/22/2022. RESULT: Lines, tubes, and devices: None. Lungs and pleura: Volume loss in the right hemithorax. Stable small right pleural effusion. Ill-defi thalia hazy opacities in the right mid and lower lung. Cardiomediastinal silhouette: Considerable interval decrease in size of the right suprahilar mass. R ight suprahilar suture line Other: No acute osseous or upper abdominal finding. IMPRESSION: Subsegmental right mid and lower lung airspace disease may represent atelectasis or infection. Small right pleural effusion. Decreased size of the right suprahilar mass. Reviewed, dictated and finalized at location K. IMPRESSION: Subsegmental right mid and lower lung airspace disease may represent atelectasi s or infection. Small right pleural effusion. Decreased size of the right supra hilar mass.
[2023-02-18 21:47] VITALS: TEMP 36.6
--- NOTE | 2023-02-18 21:47 | ED.GENADULT ---
HPI - General Adult General Chief complaint: Seizure Stated complaint: seizure Time Seen by Provider: 02/18/23 21:48 Source: EMS and old records reviewed Mode of arrival: EMS Limitations: clinical condition History of Present Illness HPI narrative: Patient is 67 years old -[place] male came from long term with seizure-like activity yesterday and today. The long term physician was planning to start patient on Keppra, then he decided to send patient to the emergency room for further evaluation. History of metastatic lung disease with brain metastasis, chemotherapy and radiation therapy Related Data Home Medications Medication Instructions Recorded Confirmed acyclovir 400 mg tablet 400 mg PO BID 01/09/20 09/22/22 amlodipine 10 mg tablet (Norvasc) 10 mg PO DAILY 01/09/20 09/22/22 hydroxyzine pamoate 25 mg capsule 25 mg PO BID PRN Anxiety 01/09/20 09/22/22 (Vistaril) oxycodone 15 mg tablet 15 mg PO Q4H PRN Pain 01/09/20 09/22/22 dicyclomine 10 mg capsule 10 mg PO BID 10/28/20 09/22/22 prasugrel 10 mg tablet 10 mg PO DAILY 02/02/21 09/22/22 doxazosin 2 mg tablet 2 mg PO DAILY 10/31/21 09/22/22 rosuvastatin 10 mg tablet 10 mg PO DAILY 11/06/21 09/22/22 aspirin 81 mg tablet 81 mg PO DAILY 03/27/22 09/22/22 famotidine 40 mg tablet 40 mg PO DAILY 05/18/22 09/22/22 nebivolol 10 mg tablet 10 mg PO DAILY 05/18/22 09/22/22 dexamethasone 4 mg tablet 4 mg PO BID 01/21/23 magnesium oxide 400 mg PO DAILY 01/21/23 omeprazole 20 mg capsule,delayed 20 mg PO DAILY 01/21/23 release potassium chloride 20 mEq 20 meq PO DAILY 01/21/23 tablet,extended release(part/cryst) (Klor-Con M) Allergies Allergy/AdvReac Type Severity Reaction Status Date / Time Penicillins Allergy Unknown Anaphylaxis Verified 01/10/23 17:14 Review of Systems Review of Systems: ROS unobtainable: Yes unobtainable due to medical condition and unobtainable due to mental status PMFSH Past Medical History Medical History Acute urinary retention Contraindication to percutaneous coronary intervention (PCI) Coronary artery disease Emphysema lung GERD (gastroesophageal reflux disease) Hypertension Lung nodule Peripheral vascular disease Sinusitis Tobacco abuse Surgical History Surgical History H/O cardiac catheterization H/O neck surgery History of esophagogastroduodenoscopy (EGD) S/P partial lobectomy of lung Family History Family History (Updated 01/21/23 @ 13:46 by Shauna Lozada MA) Father Cancer Mother Hypertension Social History Social History (Updated 01/21/23 @ 13:54 by Shauna Lozada MA) Social History: Loki feels very confident filling out medical forms, and in the last 12 months he has received assistance for housing. Loki awakens 4 times a night to urinate, declined to answer difficulty getting or maintaining an erection, has had PSA blood test, and had a prostate exam an over 50 prostate exam on 12/02/22. Loki states he does not currently use street drugs, has never given himself street drugs with a needle, does not eat healthy and exercise regularly, and claims to be sexually active. Loki does not fear for his safety or have a history of abuse. Loki drinks 3 cups of coffee a day. Smoking packs per day: 1 Smoking cigarettes per day: 20.0 Smoking status: Former smoker Tobacco type: cigarettes Alcohol intake: current Alcohol use details: OCCASIONAL BEER Substance use: never Lack of Transportation: No Lack of Food: Never True Current Housing: I Have Housing Concerned About Future Housing: No Difficulty Paying Gas/Electric Bills: No Difficulty Paying for Meds: No Currently Unemployed: YES Education: High School Diploma/GED Difficulty w/ Childcare or Family Care: No Living arrangements: with family Occupation/Education: retired Additional occupation/education comment
--- NOTE | 2023-02-18 21:52 | ECG_ITS ---
Measurements Intervals Craig Rate: 100 P: 51 NH: 208 QRS: 20 QRSD: 102 T: 210 QT: 313 QTc: 405 Interpretive Statements SINUS TACHYCARDIA WITH NONCONDUCTED PAC INTRAVENTRICULAR CONDUCTION DELAY WITH REPOLARIZATION ABNORMALITY HEART RATE IS INCREASED COMPARED TO ECG 04/30/2022 09:55:51 SINUS TACHYCARDIA NOW PRESENT Electronically Signed On 02-19-2023 7:57:32 CDT by Cj Hernández M.D.
[2023-02-18 22:41] LABS: Basophils Percent Auto 0.2 % (0.2-1.2); Eosinophils Percent Auto 0.2 % (0-4.4); Hematocrit 40.5 % (42.0-52.0); Hemoglobin 13.6 g/dL (14.0-18.0); Immature Granulocyte Absolute 0.04 K/mm3 (0.00-0.031); Immature Granulocyte Percent A 0.8 % (0-0.5); Immature Platelet Fraction Pct 3.6 % (0.9-11.2); Lymphocytes Absolute Auto 0.46 K/mm3 (0.9-3.2); Lymphocytes Percent Auto 9.3 % (18.3-44.2); Mean Corpuscular HGB Conc 33.6 g/dl (32-36); Mean Corpuscular Hemoglobin 28.3 pg (26-34); Mean Corpuscular Volume 84.4 fl (80-100); Mean Platelet Volume 8.9 fl (7.4-10.4); Monocytes Absolute Auto 0.4 K/mm3 (0.1-0.6); Monocytes Percent Auto 7.5 % (2.6-8.5); Platelet Count Result 146 k/mm3 (150-375); Red Cell Distribution Width 14.3 % (11.5-14.5); White Blood Count 4.9 K/mm3 (4.5-10.0)
[2023-02-18 22:52] LABS: Partial Thromboplastin Time 28.4 SECONDS (22.3-36.8)
[2023-02-18 22:53] LABS: Lactic Acid Reflex 1.8 mmol/L (0.7-2.0)
[2023-02-18 22:54] LABS: Alanine Aminotransferase 29 U/L (6-50); Albumin Level 3.9 g/dL (3.5-5.1); Alkaline Phosphatase 96 U/L (38-126); Anion Gap 9 mmol/L (8-16); Aspartate Amino Transferase 45 U/L (17-59); Bilirubin,Total 0.7 mg/dL (0.2-1.3); Blood Urea Nitrogen 11 mg/dL (9-20); Carbon Dioxide 33 mmol/L (22-30); Chloride 86 mmol/L (98-107); Creatine Kinase 343 U/L (55-170); Estimated CRCL calculation 87 ml/min; Estimated Glomerular Filt Rate > 60; Glucose 116 mg/dL (65-110); Potassium 3.3 mmol/L (3.4-5.0); Sodium 128 mmol/L (137-145)
[2023-02-18] MEDS: levETIRAcetam 1000MG/NACL100ML 1,000 MG/100 ML BAG 400 MG IVPB (23:21)
[2023-02-18 23:23] VITALS: BP 137/94; PULSE 95; RESP 20; O2SAT 100
[2023-02-18 23:34] LABS: Appearance Urine Turbid (Clear); Bacteria Urine 4+ /hpf; Bilirubin Urine Negative (Negative); Blood Urine 3+ (Negative); Color Urine Dark Yellow (Yellow); Glucose Urine UA Negative (Negative); Ketones Urine 1+ mg/dL (Negative); Leukocyte Esterase Ur 3+ LEU/UL (Negative); Need Manual Microscopic Reviewed; Nitrate Urine Positive (Negative); Non Pathogenic Casts >20; Protein Urine 3+ mg/dL (Negative); RBC Urine >100 /hpf (0-2); Squamous Epithelial Cell Urine Few /hpf (Few); WBC Urine >100 /hpf; pH Urine 7.5 (5.0-9.0)
[2023-02-19] VITALS (7 sets, daily range): BP systolic 123–146; BP diastolic 81–94; PULSE 105–118; RESP 16–20; TEMP 35.7–37.2; O2SAT 96–100; BMI 20.3
[2023-02-19] MEDS: SODIUM CHLORIDE 0.9% IV 1,000 ML 999 ML IV CONT (00:03)
[2023-02-19 00:08] LABS: Add Urine Microscopic? YES
--- NOTE | 2023-02-19 00:34 | PM.IMHP ---
H&P: HPI History of Present Illness Date/Time: 02/19/23 00:34 Chief Complaint: Seizure Narrative: History and physical taken mostly from chart review and discussion with ER physician. Patient is postictal with sleepiness and slurred speech and is unable to provide meaningful history. Mr. Brown is a 67-year-old male with history of metastatic lung adenocarcinoma, CAD with cardiac stent, DVT, HTN, PAD with femoral-popliteal stent, ACDF C4-6, newly discovered brain metastasis coming [facility] for supposed seizure activity yesterday and today. Patient is unable to provide much detail of circumstances surrounding his seizure activity. As per ER doctor patient is not on any anti seizure medicine at the [facility] and has not been started on Keppra. The patient was initially diagnosed with lung cancer and February 2022 for which he had a right upper lobectomy and mediastinal lymph node dissection at [facility] that month. ? He was initially placed on surveillance, but in July, there is concern for metastatic disease which was confirmed with EBUS at [facility]. he had palliative radiation to the chest and has been receiving chemotherapy every other week with Dr. Hernandez in the form of carboplatin, pemetrexed, and pembrolizumab.? Recently he went to ER because of some neck stiffness, sinus pressure, and right-sided headache.? A CT scan was performed that showed a left cerebellar mass concerning for metastasis.? He has been referred for Neurosurgery and plan is to follow up in 2 months with a repeat MRI. Patient is seen in the ER. He appears groggy and has some slurring of speech. He has some generalized weakness but no focal deficits. He is complaining of some lower back pain. He has a Snow catheter which he says he has had due to problems urinating. Review of Systems Review of Systems: Unable to fully obtain as patient somewhat lethargic and sleepy, postictal PMFSH Past Medical History Medical History Acute urinary retention Contraindication to percutaneous coronary intervention (PCI) Coronary artery disease Emphysema lung GERD (gastroesophageal reflux disease) Hypertension Lung nodule Peripheral vascular disease Sinusitis Tobacco abuse Surgical History Surgical History H/O cardiac catheterization H/O neck surgery History of esophagogastroduodenoscopy (EGD) S/P partial lobectomy of lung Family History Family History (Updated 01/21/23 @ 13:46 by Shauna Lozada MA) Father Cancer Mother Hypertension Social History Social History (Updated 01/21/23 @ 13:54 by Shauna Lozada MA) Social History: Loki feels very confident filling out medical forms, and in the last 12 months he has received assistance for housing. Loki awakens 4 times a night to urinate, declined to answer difficulty getting or maintaining an erection, has had PSA blood test, and had a prostate exam an over 50 prostate exam on 12/02/22. Loki states he does not currently use street drugs, has never given himself street drugs with a needle, does not eat healthy and exercise regularly, and claims to be sexually active. Loki does not fear for his safety or have a history of abuse. Loki drinks 3 cups of coffee a day. Smoking packs per day: 1 Smoking cigarettes per day: 20.0 Smoking status: Former smoker Tobacco type: cigarettes Alcohol intake: current Alcohol use details: OCCASIONAL BEER Substance use: never Lack of Transportation: No Lack of Food: Never True Current Housing: I Have Housing Concerned About Future Housing: No Difficulty Paying Gas/Electric Bills: No Difficulty Paying for Meds: No Currently Unemployed: YES Education: High School Diploma/GED Difficulty w/ Childcare or Family Care: No Living arrangements: with family Occupation/Education: retired Additional occupation/edu
[2023-02-19] MEDS: POTASSIUM CHLORIDE 20 MEQ PACKET (FOR LIQUID) 40 MEQ PO (01:11)
--- NOTE | 2023-02-19 01:29 | ADMGEN ---
This patient, Loki Brown, was admitted to Medical Room 242-01. Patient/family oriented to hospital policies and general routines including ID bracelet, bed and alarms, visiting hours, pain management, procedures, bathroom and other care routines, personal items, smoking policy, room service/diet, and visiting hours. Information on how to activate the Rapid Response Team has been discussed. Patient/Family are encouraged to report perceived risks to care and to ask questions if they do not understand what they are told or what they should do.
[2023-02-19 01:39] LABS: Magnesium 1.7 mg/dL (1.6-2.3)
[2023-02-19] MEDS: SODIUM CHLORIDE 0.9% IV 1,000 ML 100 ML IV CONT (01:47)
[2023-02-19] MEDS: levETIRAcetam 500MG/NACL 100ML 500 MG/100 ML BAG 400 MG IVPB ×2 (10:11→22:07)
--- NOTE | 2023-02-19 11:17 | WPDNEURCNPN ---
Assessment and Plan Assessment and plan (1) Seizure-like activity: Code(s): R56.9 - Unspecified convulsions Status: Acute (2) Metastasis to brain: Code(s): C79.31 - Secondary malignant neoplasm of brain Status: Acute (3) Adenocarcinoma, lung: Qualifiers: Laterality: right Qualified Code(s): C34.91 - Malignant neoplasm of unspecified part of right bronchus or lung Code(s): C34.90 - Malignant neoplasm of unspecified part of unspecified bronchus or lung Status: Acute Plan Mr. Brown is a 67 year old male with a history of metastatic lung cancer presenting due to seizure. CT head showed cerebellar mass, which I would not expect to cause his seizure. Will need to evaluate for cortical lesions. - Continue Keppra 500mg BID Consult date: 02/19/23 Time Seen: 11:17 Reason for consult: Seizure HPI: Loki Brown is a 67 year old male with a history of metastatic lung cancer, CAD, DVT, HTN presenting due to concerns for seizure. Patient was initially diagnosed with lung cancer in February 2022. He was found to have metastatic spread in July 2022. He was recently found to have a left cerebellar mass concerning for metastatsis when he presented to the ER for neck stiffness. He had been referred to Neurosurgery and saw them in December 2022. MRI brain was supposed to be done around that time but has not been completed. Patient was brought in from senior care due to seizure. Patient is unable to provide any details about the seizure or if he has had seizures in the past. When the patient presented to the ED, the ED physician did discuss the case with patient's oncologist but was deemed not a candidate for transfer since his problem currently was only neurological. Patient was given 1 gram Keppra loading dose, and then started on maintenance Keppra 500mg BID. Patient is able to tell that he is having some dizziness but otherwise was not able to provide review of systems. \ Review of Systems Review of Systems: ROS unobtainable: Yes unobtainable due to mental status PMFSH Past Medical History Medical History Acute urinary retention Contraindication to percutaneous coronary intervention (PCI) Coronary artery disease Emphysema lung GERD (gastroesophageal reflux disease) Hypertension Lung nodule Peripheral vascular disease Sinusitis Tobacco abuse Surgical History Surgical History H/O cardiac catheterization H/O neck surgery History of esophagogastroduodenoscopy (EGD) S/P partial lobectomy of lung Family History Family History Father Cancer Mother Hypertension Social History Social History Social History: Loki feels very confident filling out medical forms, and in the last 12 months he has received assistance for housing. Loki awakens 4 times a night to urinate, declined to answer difficulty getting or maintaining an erection, has had PSA blood test, and had a prostate exam an over 50 prostate exam on 12/02/22. Loki states he does not currently use street drugs, has never given himself street drugs with a needle, does not eat healthy and exercise regularly, and claims to be sexually active. Loki does not fear for his safety or have a history of abuse. Loki drinks 3 cups of coffee a day. Smoking packs per day: 1 Smoking cigarettes per day: 20.0 Smoking status: Current every day smoker Tobacco type: cigarettes Alcohol intake: former Alcohol use details: OCCASIONAL BEER Substance use: never Lack of Transportation: No Lack of Food: Never True Current Housing: I Have Housing Concerned About Future Housing: No Difficulty Paying Gas/Electric Bills: No Difficulty Paying for Meds: No Currently Unemployed: YES Education: High School Diploma/GED [place]
--- NOTE | 2023-02-19 13:30 | P.PNIM_ITS ---
Progress Note: A&P Assessment and Plan (1) Seizure-like activity: Code(s): R56.9 - Unspecified convulsions Status: Acute Assessment and Plan: * patient with diagnosis of lung adenocarcinoma with new brain Mets, with supposed seizure activity yesterday and today. * Patient has been empirically loaded with Keppra. The Keppra 500 mg b.i.d. * Neurology Dr. Wooten was consulted from the ER. * Neurology does not believe that seizure activities from brain Mets due to location of mass * CT scan of the brain does not show any acute lesion * MRI of brain ordered. * continue neuro checks and seizure precautions * NPO temporarily. (2) Hyponatremia: Code(s): E87.1 - Hypo-osmolality and hyponatremia Status: Acute Assessment and Plan: * patient appears dry with hyponatremia. * potassium low, will supplement * Replace magnesium as needed * IV fluids discontinued after sodium continued to drop (3) Adenocarcinoma, lung: Qualifiers: Laterality: right Qualified Code(s): C34.91 - Malignant neoplasm of unspecified part of right bronchus or lung Code(s): C34.90 - Malignant neoplasm of unspecified part of unspecified bronchus or lung Status: Acute Assessment and Plan: * patient with known adenocarcinoma status post right upper lobectomy and lymph node dissection, now with metastatic brain disease and seizures. * Was evaluated by Neurosurgery and has follow-up. * patient complaining of some back pains. 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 * Started on Keppra. * Will transition to oral meds once cleared by speech therapy. * Continue seizure precautions. * Await Neurology recommendations. Plan Full code Subjective Date/time seen: 02/19/23 13:30 Interval history: Patient appeared postictal. He is very drowsy and intermittently confused. He stated that he was at [facility], the year 2022 but could not state why he was in the hospital. He also said that President Corby was president currently and then stated that it was 2001. Discussed case with Neurology and they do not believe seizure activity is from brain mass. She recommended MRI of the brain to further assess for metastasis. Patient says that he has intermittent issues with memory. He denies being in any pain. States that he does not have a visual changes at this time. 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
--- NOTE | 2023-02-19 13:30 | PM.IMPN ---
Progress Note: A&P Assessment and Plan (1) Seizure-like activity: Code(s): R56.9 - Unspecified convulsions Status: Acute Assessment and Plan: patient with diagnosis of lung adenocarcinoma with new brain Mets, with supposed seizure activity yesterday and today. Patient has been empirically loaded with Keppra. The Keppra [address] Wooten was consulted from the ER. Neurology does not believe that seizure activities from brain Mets due to location of mass CT scan of the brain does not show any acute lesion MRI of brain ordered. continue neuro checks and seizure precautions NPO temporarily. (2) Hyponatremia: Code(s): E87.1 - Hypo-osmolality and hyponatremia Status: Acute Assessment and Plan: patient appears dry with hyponatremia. potassium low, will supplement Replace magnesium as needed IV fluids discontinued after sodium continued to drop (3) Adenocarcinoma, lung: Qualifiers: Laterality: right Qualified Code(s): C34.91 - Malignant neoplasm of unspecified part of right bronchus or lung Code(s): C34.90 - Malignant neoplasm of unspecified part of unspecified bronchus or lung Status: Acute Assessment and Plan: patient with known adenocarcinoma status post right upper lobectomy and lymph node dissection, now with metastatic brain disease and seizures. Was evaluated by Neurosurgery and has follow-up. patient complaining of some back pains. 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 Started on Keppra. Will transition to oral meds once cleared by speech therapy. Continue seizure precautions. Await Neurology recommendations. Plan Full code Subjective Date/time seen: 02/19/23 13:30 Interval history: Patient appeared postictal. He is very drowsy and intermittently confused. He stated that he was at [facility], the year 2022 but could not state why he was in the hospital. He also said that President Tavarez was president currently and then stated that it was 2001. Discussed case with Neurology and they do not believe seizure activity is from brain mass. She recommended MRI of the brain to further assess for metastasis. Patient says that he has intermittent issues with memory. He denies being in any pain. States that he does not have a visual changes at this time. 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 Objective Data Vital Signs Vital Signs: Vital Signs - 24 hr 02/18/23 21:47 02/18/23 23:23 02/19/23 01:08 Temperature 97.9 F Pulse Rate 95 105 H Respiratory Rate 20 20 Blood Pressure 137/94 H 128/94 H Pulse Oximetry 100 100 Oxygen Delivery 02/19/23 01:09 02/19/23 01:33 02/19/23 01:40 Temperature 96.4 F L Pulse Rate 118 H 106 H Respiratory Rate 20 19 Blood Pressure 128/94 H 123/81 Pulse Oximetry 96 99 Oxygen Delivery Room Air 02/19/23 04:20 02/19/23 04:48 02/19/23 07:55 Temperature 96.3 F L Pulse Rate 107 H Respiratory Rate 17 Blood Pressure 133/82 Pulse Oximetry 99 100 Oxygen Delivery Room Air Room Air Intake/Output Intake/Output: Intake & Output 02/16/23 02/17/23 02/18/23 02/19/23 23:59 23:59 23:59 23:59 Intake Total 100 Output Total 350 Balance 100 -350 Meds/Results Medications: Active Medications Generic Name Dose Route
[2023-02-19] MEDS: MAGNESIUM SULF 2 GM/WATER 50ML 2 GM/50 ML BAG IVPB (14:49)
[2023-02-20 04:30] VITALS: BP 140/83; PULSE 119; RESP 16; TEMP 36.9; O2SAT 98
[2023-02-20 07:56] LABS: Basophils Percent Auto 0.3 % (0.2-1.2); Eosinophils Percent Auto 0.3 % (0-4.4); Hemoglobin 12.7 g/dL (14.0-18.0); Immature Granulocyte Absolute 0.03 K/mm3 (0.00-0.031); Immature Granulocyte Percent A 0.8 % (0-0.5); Lymphocytes Absolute Auto 0.35 K/mm3 (0.9-3.2); Lymphocytes Percent Auto 8.9 % (18.3-44.2); Mean Corpuscular HGB Conc 32.6 g/dl (32-36); Mean Corpuscular Hemoglobin 28.3 pg (26-34); Mean Corpuscular Volume 86.9 fl (80-100); Mean Platelet Volume 10.3 fl (7.4-10.4); Monocytes Absolute Auto 0.4 K/mm3 (0.1-0.6); Monocytes Percent Auto 9.4 % (2.6-8.5); Neutrophils Absolute Auto 3.2 K/mm3 (1.3-6.7); Neutrophils Percent Auto 80.3 % (45.5-73.1); Platelet Count Result 120 k/mm3 (150-375); Red Blood Count 4.49 M/mm3 (4.6-6.20); Red Cell Distribution Width 14.6 % (11.5-14.5); White Blood Count 3.9 K/mm3 (4.5-10.0)
--- NOTE | 2023-02-20 11:18 | P.DS_ITS ---
DS: Admitting Diagnosis Discharge Date 02/20/23 Admitting Diagnosis seizure DS: Discharge Diagnosis Discharge Diagnosis (1) Seizure-like activity: Code(s): R56.9 - Unspecified convulsions Status: Acute Assessment and Plan: * patient with diagnosis of lung adenocarcinoma with new brain Mets, with supposed seizure activity yesterday and today. * Patient has been empirically loaded with Keppra. The Keppra 500 mg b.i.d. * Neurology Dr. Wooten was consulted from the ER. * Neurology does not believe that seizure activities from brain Mets due to location of mass * CT scan of the brain does not show any acute lesion * MRI of brain unable to be done due to unknown past surgical history * He has scheduled follow up with oncologist next month and getting supposed brain MRI then. * neuro checks and seizure precautions (2) Hyponatremia: Code(s): E87.1 - Hypo-osmolality and hyponatremia Status: Acute Assessment and Plan: * patient appears dry with hyponatremia. * potassium low, will supplement * Replace magnesium as needed * IV fluids discontinued after sodium continued to drop (3) Adenocarcinoma, lung: Qualifiers: Laterality: right Qualified Code(s): C34.91 - Malignant neoplasm of unspecified part of right bronchus or lung Code(s): C34.90 - Malignant neoplasm of unspecified part of unspecified bronchus or lung Status: Acute Assessment and Plan: * patient with known adenocarcinoma status post right upper lobectomy and lymph node dissection, now with metastatic brain disease and seizures. * Was evaluated by Neurosurgery and has follow-up. * patient complaining of some back pains. 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 * Started on Keppra. * Will transition to oral meds once cleared by speech therapy. * Continue seizure precautions. * Await Neurology recommendations. Plan Full code DS: Summary Hospital Course Hospital Course: This is a 67-year-old male with a past medical history of metastatic lung adenocarcinoma, CAD with cardiac stent, DVT, hypertension, PAD, chronic Snow and newly discovered brain metastases that presented from [facility] on 02/[facility]/2023 due to supposed seizure activity. Patient recently presented to the ED at [facility] and was found to have a left cerebellar mass concerning for metastases. Patient referred to Neurosurgery and he has an MRI planned next month. He does have some slurred speech but unknown if this is acute or chronic. Patient was started on IV Keppra. Neurology consulted. Neurology did not believe that seizure activity was due to cerebellar mass and requested an MRI. MRI was unable to be performed due to unknown surgical history. Due to patient having MRI scheduled in a couple weeks this was deferred back to his already scheduled visit. Due to his speech he was evaluated by speech therapy. They recommended pureed diet and thickened liquids. He would be able to take pills and applesauce. Neurology has cleared him to follow-up with his neurosurgeon for MRI. He will be discharged on Keppra. Time Spent with Patient Time attestation: Total time spent providing and/or coordinating discharge services: Exam Narrative: GENERAL: Comfortable, no acute distress HENMT: moist mucous membranes EYES:
--- NOTE | 2023-02-20 11:18 | PM.DS ---
DS: Admitting Diagnosis Discharge Date 02/20/23 Admitting Diagnosis seizure DS: Discharge Diagnosis Discharge Diagnosis (1) Seizure-like activity: Code(s): R56.9 - Unspecified convulsions Status: Acute Assessment and Plan: patient with diagnosis of lung adenocarcinoma with new brain Mets, with supposed seizure activity yesterday and today. Patient has been empirically loaded with Keppra. The Keppra [address] Wooten was consulted from the ER. Neurology does not believe that seizure activities from brain Mets due to location of mass CT scan of the brain does not show any acute lesion MRI of brain unable to be done due to unknown past surgical history He has scheduled follow up with oncologist next month and getting supposed brain MRI then. neuro checks and seizure precautions (2) Hyponatremia: Code(s): E87.1 - Hypo-osmolality and hyponatremia Status: Acute Assessment and Plan: patient appears dry with hyponatremia. potassium low, will supplement Replace magnesium as needed IV fluids discontinued after sodium continued to drop (3) Adenocarcinoma, lung: Qualifiers: Laterality: right Qualified Code(s): C34.91 - Malignant neoplasm of unspecified part of right bronchus or lung Code(s): C34.90 - Malignant neoplasm of unspecified part of unspecified bronchus or lung Status: Acute Assessment and Plan: patient with known adenocarcinoma status post right upper lobectomy and lymph node dissection, now with metastatic brain disease and seizures. Was evaluated by Neurosurgery and has follow-up. patient complaining of some back pains. 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 Started on Keppra. Will transition to oral meds once cleared by speech therapy. Continue seizure precautions. Await Neurology recommendations. Plan Full code DS: Summary Hospital Course Hospital Course: This is a 67-year-old male with a past medical history of metastatic lung adenocarcinoma, CAD with cardiac stent, DVT, hypertension, PAD, chronic Snow and newly discovered brain metastases that [facility] due to supposed seizure activity. Patient recently presented to the ED at [facility] and was found to have a left cerebellar mass concerning for metastases. Patient referred to Neurosurgery and he has an MRI planned next month. He does have some slurred speech but unknown if this is acute or chronic. Patient was started on IV Keppra. Neurology consulted. Neurology did not believe that seizure activity was due to cerebellar mass and requested an MRI. MRI was unable to be performed due to unknown surgical history. Due to patient having MRI scheduled in a couple weeks this was deferred back to his already scheduled visit. Due to his speech he was evaluated by speech therapy. They recommended pureed diet and thickened liquids. He would be able to take pills and applesauce. Neurology has cleared him to follow-up with his neurosurgeon for MRI. He will be discharged on Keppra. 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
[2023-02-20 14:07] VITALS: BP 133/80; PULSE 108; RESP 16; TEMP 37.3; O2SAT 99
--- NOTE | 2023-02-20 14:55 | PCSTNOTE ---
Bedside swallowing evaluation completed. Patient positioned upright in bed with head of bed elevated. Alert and attentive but providing only short answers or none at all. Oral cavity dry with dry caked saliva on lips and pieces of hardened mucous and saliva in oral cavity. Provided oral care and removed debris and residue. Trials of thin liquid by spoon and cup, and trials of pureed consistency (chilled applesauce) by spoon were given. No signs of aspiration observed. Patient refused solid trials, and when asked if he was refusing because of his mouth being dry he said yes , but this response may not be reliable. No chewing of food could be observed. Based on this evaluation, thin liquids and pureed food are recommended. Swallowing precaution recommendations placed in chart. Please note that silent aspiration cannot be ruled out at bedside and can only be evaluated with a modified barium swallow. Thank you for the referral of this patient.
[2023-02-20 15:18] LABS: Hematocrit 37.9 % (42.0-52.0); Hemoglobin 12.3 g/dL (14.0-18.0); Mean Corpuscular HGB Conc 32.5 g/dl (32-36); Mean Corpuscular Hemoglobin 28.3 pg (26-34); Mean Corpuscular Volume 87.1 fl (80-100); Mean Platelet Volume 9.8 fl (7.4-10.4); Platelet Count Result 118 k/mm3 (150-375); Red Blood Count 4.35 M/mm3 (4.6-6.20); Red Cell Distribution Width 14.6 % (11.5-14.5); White Blood Count 4.2 K/mm3 (4.5-10.0)
[2023-02-20 15:44] LABS: Alanine Aminotransferase 28 U/L (6-50); Albumin Level 3.7 g/dL (3.5-5.1); Alkaline Phosphatase 95 U/L (38-126); Anion Gap 8 mmol/L (8-16); Aspartate Amino Transferase 38 U/L (17-59); Bilirubin,Total 0.8 mg/dL (0.2-1.3); Blood Urea Nitrogen 10 mg/dL (9-20); Calcium 8.7 mg/dL (8.4-10.2); Carbon Dioxide 30 mmol/L (22-30); Chloride 96 mmol/L (98-107); Estimated CRCL calculation 89 ml/min; Estimated Glomerular Filt Rate > 60; Glucose 106 mg/dL (65-110); Potassium 3.2 mmol/L (3.4-5.0); Sodium 134 mmol/L (137-145)
[2023-02-20] MEDS: ACYCLOVIR 400 MG TABLET PO (17:32)
[2023-02-20] MEDS: DEXAMETHASONE 4 MG TABLET PO (17:32)
[2023-02-20] MEDS: DICYCLOMINE HCL 10 MG CAPSULE PO (17:32)
[2023-02-20] MEDS: SENNA/DOCUSATE SODIUM TABLET 1 TAB PO (17:33)
[2023-02-20] MEDS: hydrALAZINE HCL 50 MG TABLET PO (17:33)
[2023-02-20] MEDS: POTASSIUM CHLORIDE 20 MEQ ER TABLET 40 MEQ PO (17:33)
[2023-02-20] MEDS: polyethylene glycoL 3350 17 GM POWD.PACK PO (17:34)
[2023-02-20 18:26] LABS: SARS-CoV-2 RNA PCR Negative (Negative)
[2023-02-20 19:24] VITALS: BP 134/78; PULSE 111; RESP 16; TEMP 36.6; O2SAT 98
[2023-02-20] MEDS: levETIRAcetam 500 MG TABLET PO (19:42)
== END 2023-02-20 23:30 ==
LOC: ANHED 23:57 → ANH2MED 02-19 01:10
PROVIDERS: Internal Medicine Critical Care Medicine; Admitting Provider Internal Medicine; Emergency Provider Emergency Medicine; PCP Emergency Medicine; Visit Provider Family Medicine
DX: R56.9 Unspecified convulsions (principal); E87.1 Hypo-osmolality and hyponatremia; C34.91 Malignant neoplasm of unspecified part of right bronchus or lung; C79.31 Secondary malignant neoplasm of brain; M47.817 Spondylosis without myelopathy or radiculopathy, lumbosacral region; I25.10 Atherosclerotic heart disease of native coronary artery without angina pectoris; Z95.5 Presence of coronary angioplasty implant and graft; Z20.822 Contact with and (suspected) exposure to COVID-19; J43.9 Emphysema, unspecified; K21.9 Gastro-esophageal reflux disease without esophagitis; I10 Essential (primary) hypertension; I73.9 Peripheral vascular disease, unspecified; Z98.62 Peripheral vascular angioplasty status; J32.9 Chronic sinusitis, unspecified; Z90.2 Acquired absence of lung [part of]; G93.89 Other specified disorders of brain; E87.6 Hypokalemia; R91.8 Other nonspecific abnormal finding of lung field; I45.4 Nonspecific intraventricular block; R00.0 Tachycardia, unspecified; R94.31 Abnormal electrocardiogram [ECG] [EKG]; F10.90 Alcohol use, unspecified, uncomplicated; Z96.0 Presence of urogenital implants; Z92.21 Personal history of antineoplastic chemotherapy; Z92.3 Personal history of irradiation; Z87.891 Personal history of nicotine dependence; Z86.718 Personal history of other venous thrombosis and embolism; Z79.1 Long term (current) use of non-steroidal anti-inflammatories (NSAID); Z79.51 Long term (current) use of inhaled steroids; Z79.891 Long term (current) use of opiate analgesic; Z79.899 Other long term (current) drug therapy; Z80.9 Family history of malignant neoplasm, unspecified; Z82.49 Family history of ischemic heart disease and other diseases of the circulatory system
CPT/HCPCS: 36415; 70450; 71045; 72100; 80053; 81001; 82550; 83605; 83735; 85025; 85027; 85055; 85610; 85730; 87086; 87088; 87635; 92522; 92610; 93005; 96365; 96375; 96376; 99285; A9270; G0378; J1953; J3475; J7030; J8540